=== PATIENT | female | born 1965 | race Caucasian/White ===

== ENCOUNTER 2019-11-03 21:23 | Observation (INO) ==
--- NOTE | 2019-11-03 21:33 | Emergency Department Note ---
ED Disposition Clinical Impression: Acute asthma, Peripheral edema Respiratory failure with hypoxia Qualifiers: Chronicity: acute Qualified Code(s): J96.01 - Acute respiratory failure with hypoxia Community acquired pneumonia Qualifiers: Laterality: right Lung location: middle lobe of lung Qualified Code(s): J18.9 - Pneumonia, unspecified organism Disposition: Admitted As Inpatient Condition on Discharge: Fair Referrals: Jez Hernandez [Primary Care Provider] - - Critical Care Critical Care Time: Yes Attestation: On , the high probability of a clinically significant, sudden or life threatening deterioration of the following system(s) required my full and direct attention, intervention and personal management. The time I documented below is in addition to time spent performing reported procedures but includes the fol lowing listed in this critical care notation. Vital system(s) involved:: Respiratory Failure My critical care processes included: Assessment & monitoring of V/S, Initial and Re-exams, Data Review/Interpretation, Coordinating Care, Medication Orders and management, Documentation Medical Decision Making - Jhonny Inquiry Pt receiving controlled substance: No Vital Signs: 11/03/19 21:31 11/03/19 22:11 Temperature 98.1 F Temperature Source Oral Pulse Rate [Right] 116 H 99 H Respiratory Rate 26 H 22 Blood Pressure [Right Arm] 146/95 H 131/86 Blood Pressure Mean [Right Arm] 112 101 Blood Pressure Source [Right Arm] Automatic Cuff Automatic Cuff Blood Pressure Position [Right Arm] Sitting Sitting 02 Sat by Pulse Oximetry 86 L 97 Oxygen Delivery Method Room Air Nasal Cannula Oxygen Flow Rate (LPM) 2 - Lab Data Lab Results 11/03/19 21:40: D-Dimer 234 11/03/19 21:40: Troponin I < 0.02 11/03/19 21:40: B-Natriuretic Peptide 23 11/03/19 21:40: Sodium 143, Potassium 4.2, Chloride 105, Carbon Dioxide 24, Anion Gap 18.2 H, BUN 20 H, Creatinine 0.98, Estimated Creat Clear 80, Estimated GFR 59, Est GFR ( Amer) 72, Glucose 139 H, Calcium 9.6 11/03/19 21:40: WBC 16.0 H, RBC 5.15, Hgb 15.4, Hct 48.3 H, MCV 93.8, MCH 30.0, MCHC 32.0, RDW 12.7, Plt Count 450 H, MPV 7.0 L, Neut % (Auto) 74.7, Lymph % (Auto) 16.9, [place] % (Auto) 4.0, Eos % (Auto) 3.7, Baso % (Auto) 0.6, Neut # (Auto) 12.0 H, Lymph # (Auto) 2.7, [place] # (Auto) 0.7, Eos # (Auto) 0.6 H, Baso # (Auto) 0.1, Total Counted 100, Neutrophils % (Manual) 75, Band Neutrophils % 4.0, Lymphocytes % (Manual) 18, Monocytes % (Manual) 2, Eosinophils % (Manual) 1, Platelet Estimate Normal, RBC Morphology Normal 11/03/19 21:40: Lactate 1.0 Result diagrams: 11/03/19 21:40 11/03/19 21:40 Orders (Tests/Meds): ED MEDICATIONS Generic Name Dose Route Start Last Admin Trade Name Freq PRN Reason Stop Dose Admin Ceftriaxone Sodium 1 gm/ 50 mls @ 100 mls/hr 11/03/19 23:00 11/03/19 22:55 Sodium Chloride IV 11/17/19 22:59 100 mls/hr Q24H DESIRAE Administration Protocol Azithromycin 500 mg/ Sodium 250 mls @ 250 mls/hr 11/03/19 23:00 Chloride IV 11/17/19 22:59 Q24H DESIRAE Protocol Discontinued Medications Generic Name Dose Route Start Last Admin Trade Name Freq PRN Reason Stop Dose Admin Albuterol/Ipratropium 3 ml 11/03/19 21:48 11/03/19 21:54 Duoneb 3ml Neb IH 11/03/19 21:49 3 ml ONCE ONE Administration Furosemide 20 mg 11/03/19 22:43 11/03/19 22:47 Lasix 40mg/4ml Vial IV 11/03/19 22:44 20 mg ONCE ONE Administration Levofloxacin/Dextrose 750 mg in 150 mls @ 100 mls/hr 11/03/19 22:45 11/03/19 22:50 Levofloxacin 750mg/150ml Premix IV 11/17/19 22:44 Not Given Q24H DESIRAE Protocol Methylprednisolone Sodium Succinate 125 mg 11/03/19 21:48 11/03/19 21:53 Solu-Medrol 125mg/2ml Vial IV 11/03/19 21:49 125 mg ONCE ONE Administration ORDERS Category Date Time Status Chest XR 2 view (NOT portable) [XR chest 2V] Stat Exams 11/03/19 21:47 Taken Thyroid Panel Stat Lab 11/03/19 21:40 Received Troponin I Q3H Lab 11/04/19 01:00 Ordered Troponin I Q3H Lab 11/04/19 04:00 Ordered Blood Culture Stat Micro 11/03/19 21:40 Received - Radiology Data #1 Image(s): Chest Image Reviewed: Yes I reviewed the patient's radiology image No prior x-rays for comparison. Blunting right costophrenic angle. Atelectasis versus minimal infiltrate right cardiophrenic angle. - ECG Data Tracing #1 EKG interpreted by Mahin Alonzo MD: Rhythm: sinus Rate: 83 [place]: normal Ectopy: none Conduction: normal ST Segment Changes: none T Wave Changes: none Q Waves: none No evidence of acute ischemia or injury Baseline wander present, but I consider the EKG adequate for accurate interpretation. Normal electrocardiogram - Physician Consults Physician Consulted: Dr. Couch Time: 23:05 Reason -: Admission Comment/Response: Agrees to admit the patient to the hospital. We discussed the patient's clinical information, including history, exam, laboratory and radio logy results and ED course. Per hospital procedure, I will write temporary bridge inpatient orders on the patient. Specific orders requested by the admitting physician: Continue current treatment Medical Decision Narrative: Discussed treatment and disposition. I had ordered Levaquin for possible pneumonia. She says Levaquin does not work for her. Discussed Rocephin and Zithromax. She has listed an allergy to clarithromycin, tells me that it causes her liver to hurt, but no other symptoms. She has had a azithromycin in the past without difficulty. She is agreeable to Rocephin and Zithromax. She has requested a penicillin shot, I advised her that was not the appropriate treatment for pneumonia. She is agreeable to admission. General Adult HPI - General Stated complaint: SOA Time Seen by Provider: 11/03/19 21:33 - History of Present Illness HPI narrative: Complains of shortness of breath for 1 month. States that a week ago she started developing a cough which is nonproductive. Also began holding fluid, has swelling in her legs. Denies fever, sputum production. States that she has previously been misdiagnosed years ago as COPD. She says that she saw a window trimmer who told her that she only has mild COPD and most of her problems were asthma, but she says she does not think she has either one. She is a forme r smoker. She has a nebulizer at home, but does not use it often. She says because of her current symptoms she had to get some new tubing and begin using her nebulizer a week ago. She has a pulse oximeter at home and says that her pulse oximetry goes down to 70s when she walks across the room. She says she went to [place] urgent care the night before last and had a chest x-ray to make sure she did not have pneumonia. She says, however, that "they did an x-ray and then sent me on my merry way and did not even put me on a water pill for my fluid retention". She was not prescribed any medicines. She says her primary care doctor is Dr. Lowe that she last saw about a month ago, but she says she found out at that time that they were not taking her medical card and she is having to get that switched. States she just recently moved to this area in July 2019. - Related Data Home Medications Medication Instructions Recorded Confirmed ALPRAZolam [Xanax Xr 0.5mg Tab] 0.5 mg PO HS 11/03/19 11/03/19 Albuterol Sulfate [Albuterol HFA 1 - 2 puffs IH Q4-6H PRN 11/03/19 11/03/19 Inhaler] Amlodipine Besylate 10 mg PO DAILY 11/03/19 11/03/19 Montelukast Sodium 10 mg PO DAILY 11/03/19 11/03/19 cloNIDine HCL [cloNIDine 0.1mg 0.1 mg PO BID 11/03/19 11/03/19 Tablet] Allergies Allergy/AdvReac Type Severity Reaction Status Date / Time codeine Allergy Verified 11/03/19 21:42 clarithromycin AdvReac Verified 11/03/19 21:43 From Ketorolac Tromethamine Allergy Intermediate I-HIVES Uncoded 09/12/17 15:23 [facility] History - Hepatitis A Screen Attestation statement:: This patient has been screened for Hepatitis A risk factors. I have reviewed the patient's past medical history: Yes ROS Obtained: Yes All systems reviewed & no additional complaints - Constitutional Constitutional: Denies fever(s) - ENT Ears, Nose, Mouth, and Throat: Denies nasal discharge, Denies sore throat - Cardiovascular Cardiovascular: Denies chest pain - Respiratory Respiratory: Yes cough, Yes dyspnea - Gastrointestinal Gastrointestingal: Denies: abdominal pain Physical Exam - General General appearance: alert, in no apparent distress - Head Head exam: atraumatic, normocephalic - Eye Eye exam: Present: normal appearance, EOMI - ENT ENT exam: Present: mucous membranes moist - Neck Neck exam: Present: normal inspection, full ROM - Chest Chest inspection: Present: normal inspection, symmetric chest wall rise - Respiratory Respiratory exam: Present: wheezes - Cardiovascular Cardiovascular exam: Present: regular rate, normal rhythm, normal heart sounds - Abdominal Exam Abdominal exam: Present: soft, normal bowel sounds. Absent: distention, tenderness, guarding - Extremities Exam Extremities exam: Present: other (1+ pitting edema of ankles) - Neurological Exam Neurological exam: Present: alert, oriented X3 - Psychiatric Psychiatric exam: Present: normal affect, normal mood - Skin Skin exam: Present: warm, dry. Absent: cyanosis, diaphoresis
[2019-11-03 22:30] LABS: Basophils # 0.1 K/mm3 (0-0.2); Basophils % 0.6 % (0.1-2.0); Eosinophils # 0.6 K/mm3 (0.0-0.4); Eosinophils % 3.7 % (0.1-12.0); Hematocrit 48.3 % (37.0-47.0); Hemoglobin 15.4 g/dL (12.2-16.2); Lymphocytes # 2.7 K/mm3 (0.7-4.5); Lymphocytes % 16.9 % (10-50); Mean Corpuscular Volume 93.8 fl (81-99); Monocytes # 0.7 K/mm3 (0.1-1.0); Neutrophils % 74.7 % (37.0-80.0); Platelet Count 450 K/mm3 (142-424); Red Blood Count 5.15 M/mm3 (4.20-5.40); Red Cell Distribution Width 12.7 % (11.5-17.5)
[2019-11-03 22:31] LABS: Anion Gap 18.2 mEq/L (5-15); Calcium 9.6 mg/dL (8.5-10.1)
[2019-11-03 22:50] LABS: Eosinophils % 1 % (0-3); Lymphocytes % 18 % (10-50); Monocytes % 2 % (2-9); Neutrophils % 75 % (42-76); Total Cells Counted 100
[2019-11-03 22:51] LABS: RBC Morphology Normal
[2019-11-03 23:07] LABS: Free Thyroxine Index 3.7 ug/dL (5.93-13.13); Thyroid Stimulating Hormone 1.57 uIU/ml (0.358-3.740)
--- NOTE | 2019-11-04 08:49 | H&P/Discharge Summary ---
General - General Admission date:: 11/03/19 Discharge date: 11/04/19 *Admission Date: 11/03/19 *Chief complaint: Cough/shortness of air/hypoxia *History of present illness: 54-year-old white female, who has been afflicted with asthma for several years, who has a home nebulizer machine and has been on albuterol nebulizers for several years as well as home inhalers, who over the past week or so has noticed increasing shortness of air, coughing and on her home pulse oximeter has noticed that her readings have been in the 70s when she walks about her house. She reports that she has been increasingly afflicted with coughing and congestion. Came to the emergency department here and was admitted because of pulmonary infiltrate, asthma exacerbation with failed outpatient therapy. On examination this morning to the floor she was vastly improved, tolerating room air well with normal saturations and eating her breakfast vigorously. [facility] History I have reviewed the patient's past medical history: Yes Medical History: Reports:: Asthma, Hypertension Denies:: Cancer, Diabetes Mellitus Type 1, Diabetes Mellitus Type 2, Home Oxygen, Internal Pacemaker, MRSA *Have you ever received a pneumonia vaccine?: No *Have you received a flu vaccine this season?: No Other Medical History: Reports: Cataracts, Fibromyalgia, Glaucoma Laterality Cases: Right: Arthroscopy Shoulder Other Surgeries: Yes: Tubal Ligation, Other (trigger finger release, tonsils/adenoids). No: Pacemaker Amputation: No - *Social History Educational Level: Completed College Smoking Status: Former smoker Tobacco Type: cigarettes Alcohol Intake: current Alcohol Intake Frequency:: 0-2 drinks per day Substance Use Type: marijuana Last Used Substance: hours (ago) *Occupational Status:: disabled Household Members: children *Travel in the last 8 weeks: Inside the [facility] Family Hx:: No significant family history Review of Systems - Review of Systems Review of systems:: pertinent systems reviewed and negative unless documented below Patient reports cough and congestion that is improving. She reports lots of fatigue. Otherwise 10 point review of systems negative. Patient reports that she would rather not go home today because "my son who is my caregiver needs a break." Exam Vital signs and Labs for Last 24 Hours: Temp Pulse Resp BP Pulse Ox 97.8 F 75 18 159/70 H 92 L 11/04/19 04:00 11/04/19 05:44 11/04/19 04:00 11/04/19 04:00 11/04/19 05:44 Laboratory Results - last 24 hr 11/03/19 21:40: D-Dimer 234 11/03/19 21:40: Troponin I < 0.02 11/03/19 21:40: B-Natriuretic Peptide 23 11/03/19 21:40: Sodium 143, Potassium 4.2, Chloride 105, Carbon Dioxide 24, Anion Gap 18.2 H, BUN 20 H, Creatinine 0.98, Estimated Creat Clear 80, Estimated GFR 59, Est GFR ( Amer) 72, Glucose 139 H, Calcium 9.6 11/03/19 21:40: WBC 16.0 H, RBC 5.15, Hgb 15.4, Hct 48.3 H, MCV 93.8, MCH 30.0, MCHC 32.0, RDW 12.7, Plt Count 450 H, MPV 7.0 L, Neut % (Auto) 74.7, Lymph % (Auto) 16.9, [place] % (Auto) 4.0, Eos % (Auto) 3.7, Baso % (Auto) 0.6, Neut # (Auto) 12.0 H, Lymph # (Auto) 2.7, [place] # (Auto) 0.7, Eos # (Auto) 0.6 H, Baso # (Auto) 0.1, Total Counted 100, Neutrophils % (Manual) 75, Band Neutrophils % 4.0, Lymphocytes % (Manual) 18, Monocytes % (Manual) 2, Eosinophils % (Manual) 1, Platelet Estimate Normal, RBC Morphology Normal 11/03/19 21:40: Lactate 1.0 11/03/19 21:40: TSH 1.57, Free T4 Index 3.7 L, Thyroxine (T4) 12.0, T3 Uptake 31 I & O for Last 24 hours: Intake & Output 11/01/19 11/02/19 11/03/19 11/04/19 11:59 11:59 11:59 11:59 Intake Total 300 / 300 Balance 300 / 300 Weight 166 lb 5 oz Narrative: Patient is alert. Oriented x3. Obesity noted. Complicates all aspects of her care. Oropharynx clear, no JVD. Lungs have good air movement. No wheezing. No rhonchi. Abdomen soft and nontender. No edema or clubbing. No skin rash. Neurologically intact. Hospital Course Hospital Course: Patient was admitted. She did very nicely on transfer the floor. Oxygen needs resolved. Plan will be to discharge patient home with antibiotics, steroids and refills of her solution for her nebulizer machine. She has been seeing Dr. Hernandez in the past, but has not recently because of insurance issues. We will make her a preemptive appointment at the [facility] outpatient clinic for later in the week to establish care. Results Labs on day of discharge: Labs from last 24 hours 11/03/19 11/03/19 11/03/19 21:40 21:40 21:40 WBC 16.0 H RBC 5.15 Hgb 15.4 Hct 48.3 H MCV 93.8 MCH 30.0 MCHC 32.0 RDW 12.7 Plt Count 450 H MPV 7.0 L Neut % (Auto) 74.7 Lymph % (Auto) 16.9 [place] % (Auto) 4.0 Eos % (Auto) 3.7 Baso % (Auto) 0.6 Neut # (Auto) 12.0 H Lymph # (Auto) 2.7 [place] # (Auto) 0.7 Eos # (Auto) 0.6 H Baso # (Auto) 0.1 Total Counted 100 Neutrophils % (Manual) 75 Band Neutrophils % 4.0 Lymphocytes % (Manual) 18 Monocytes % (Manual) 2 Eosinophils % (Manual) 1 Platelet Estimate Normal RBC Morphology Normal D-Dimer Sodium Potassium Chloride Carbon Dioxide Anion Gap BUN Creatinine Estimated Creat Clear Estimated GFR Est GFR ( Amer) Glucose Lactate 1.0 Calcium Troponin I B-Natriuretic Peptide TSH 1.57 Free T4 Index 3.7 L Thyroxine (T4) 12.0 T3 Uptake 31 11/03/19 11/03/19 11/03/19 21:40 21:40 21:40 WBC RBC Hgb Hct MCV MCH MCHC RDW Plt Count MPV Neut % (Auto) Lymph % (Auto) [place] % (Auto) Eos % (Auto) Baso % (Auto) Neut # (Auto) Lymph # (Auto) [place] # (Auto) Eos # (Auto) Baso # (Auto) Total Counted Neutrophils % (Manual) Band Neutrophils % Lymphocytes % (Manual) Monocytes % (Manual) Eosinophils % (Manual) Platelet Estimate RBC Morphology D-Dimer Sodium 143 Potassium 4.2 Chloride 105 Carbon Dioxide 24 Anion Gap 18.2 H BUN 20 H Creatinine 0.98 Estimated Creat Clear 80 Estimated GFR 59 Est GFR ( Amer) 72 Glucose 139 H Lactate Calcium 9.6 Troponin I < 0.02 B-Natriuretic Peptide 23 TSH Free T4 Index Thyroxine (T4) T3 Uptake 11/03/19 21:40 WBC RBC Hgb Hct MCV MCH MCHC RDW Plt Count MPV Neut % (Auto) Lymph % (Auto) [place] % (Auto) Eos % (Auto) Baso % (Auto) Neut # (Auto) Lymph # (Auto) [place] # (Auto) Eos # (Auto) Baso # (Auto) Total Counted Neutrophils % (Manual) Band Neutrophils % Lymphocytes % (Manual) Monocytes % (Manual) Eosinophils % (Manual) Platelet Estimate RBC Morphology D-Dimer 234 Sodium Potassium Chloride Carbon Dioxide Anion Gap BUN Creatinine Estimated Creat Clear Estimated GFR Est GFR ( Amer) Glucose Lactate Calcium Troponin I B-Natriuretic Peptide TSH Free T4 Index Thyroxine (T4) T3 Uptake DS: Diagnosis - Discharge Diagnosis (1) Acute asthma Status: Acute (2) Community acquired pneumonia Status: Acute Discharge Plan - Patient Discharge Instructions ACTIVITY: Continue current activity DIET: continue same diet Patient Instructions: Pneumonia-Adult, Asthma -- Adult, DI for Asthma -- Adult, DI for Pneumonia -- Adult, DI for Peripheral Edema -- Bilateral, DI for Hypoxia - Follow up Plan Follow up with: Rossy Kasper APRN [Advanced Practice Nurse] - 11/07/19 3:30 pm (please arrive to appointment at 3:00 for papeerwork) Disposition: Home, Self-Half-Way Medications: Home Medications Medication Instructions Recorded Confirmed Type ALPRAZolam [Xanax Xr 0.5mg Tab] 0.5 mg PO HS 11/03/19 11/03/19 History Albuterol Sulfate [Albuterol HFA 1 - 2 puffs IH Q4-6H PRN 11/03/19 11/03/19 History Inhaler] Amlodipine Besylate 10 mg PO DAILY 11/03/19 11/03/19 History Montelukast Sodium 10 mg PO DAILY 11/03/19 11/03/19 History cloNIDine HCL [cloNIDine 0.1mg 0.1 mg PO BID 11/03/19 11/03/19 History Tablet] Azithromycin [Zithromax 250mg 250 mg PO DIRECTED #6 tab 11/04/19 Rx tab] Cefdinir [Omnicef 300mg Capsule] 300 mg PO BID #14 cap 11/04/19 Rx Ipratropium/Albuterol Sulfate 3 ml IH TID #90 neb 11/04/19 Rx [Duoneb 3mL neb] predniSONE [Deltasone 20mg 20 mg PO BID 7 Days #14 tab 11/04/19 Rx tablet] Prescriptions/Medication Reconciliation: New predniSONE [Deltasone 20mg tablet] 20 mg PO BID 7 Days #14 tab Ipratropium/Albuterol Sulfate [Duoneb 3mL neb] 3 ml IH TID #90 neb Cefdinir [Omnicef 300mg Capsule] 300 mg PO BID #14 cap Azithromycin [Zithromax 250mg tab] 250 mg PO DIRECTED #6 tab Continued Albuterol Sulfate [Albuterol HFA Inhaler] 1 - 2 puffs IH Q4-6H PRN PRN Reason: Shortness Of Breath Or Wheezing cloNIDine HCL [cloNIDine 0.1mg Tablet] 0.1 mg PO BID Montelukast Sodium 10 mg PO DAILY ALPRAZolam [Xanax Xr 0.5mg Tab] 0.5 mg PO HS Amlodipine Besylate 10 mg PO DAILY - Problem Reconciliation Problems Reviewed?: Yes
--- NOTE | 2019-11-05 20:07 | Electrocardiograph Report ---
APPROVED REPORT Exam: Resting ECG HR:83 bpm ECG Measurements Heart Rate [address] 122 P 53 QRSd 84 QRS 84 QT 334 T89 QTc 392 <Conclusion> Normal sinus rhythm Normal ECG Electronically signed by : Lj Couch, 11/05/2019 20:07:21
== END 2019-11-04 18:50 | disposition home or self-care (01) ==
LOC: ER 21:23 → 2ND 21:23
PROVIDERS: ADMIT Internal Medicine Adolescent Medicine; ATTEND Internal Medicine Adolescent Medicine
DX: I10 Essential (primary) hypertension; J45.909 Unspecified asthma, uncomplicated; Z87.891 Personal history of nicotine dependence; Z79.899 Other long term (current) drug therapy; J18.9 Pneumonia, unspecified organism; F10.10 Alcohol abuse, uncomplicated
CPT/HCPCS: 71020; 71046; 80048; 83605; 83880; 84436; 84443; 84479; 84484; 85007; 85025; 85378; 87040; 87070; 87205; 93005; 94640; 94760; 94761; 96365; 96367; 96375; 99285; G0378; J0456

== ENCOUNTER → 2020-08-25 15:45 | Outpatient (CLI) | payer OTHER, SELFPAY ==
--- NOTE | 2020-08-25 15:51 | XR_ITS ---
PROCEDURE: XR CHEST 2V CLINICAL HISTORY: chest pain right upper and lateral chest pain, remote fall, abnormal breath sounds COMPARISON: CR XR CHEST 2V from 11/03/2019 CR XR RIBS RT 2V from 08/25/2020 FINDINGS: The cardiomediastinal silhouette and pulmonary vascularity are within normal limits. There are atelectatic changes in the right upper lobe right lower lobe and left midlung with patchy areas of increased density in these regions which may also be due to superimposed infiltrate. There is no evidence of pneumothorax. There is a 6 mm noncalcified nodule in the left upper lobe. Three views of the right ribs show a minimally offset fracture of the right 6 rib with a nondisplaced fracture of the right 7th rib anterior laterally. IMPRESSION: 1. Right 6th and 7th rib fractures. 2. Bilateral areas of atelectasis and/or infiltrate. 3. 6 mm noncalcified nodule left upper lobe. Consider chest CT for more thorough evaluation. This nodule is indeterminate Dictated by: Tino Bean MD 08/25/2020 16:59 Tino Bean MD in [place] 08/25/2020 16:59
== END ==
PROVIDERS: PCP Family Medicine; Visit Provider Family Medicine
DX: R07.81 Pleurodynia (principal)
CPT/HCPCS: 71046; 71100

== ENCOUNTER → 2021-04-05 11:10 | Outpatient (CLI) | payer OTHER, SELFPAY ==
--- NOTE | 2021-04-05 11:10 | FL_ITS ---
PROCEDURE: FL BARIUM SWALLOW MODIFIED CLINICAL INDICATION: sensation of something stuck in throat COMPARISON: No exams were available for comparison TECHNIQUE: Patient administered varying consistencies of barium contrast, while viewed in lateral position under real-time fluoroscopy with cine recording. FLUOROSCOPY TIME:1 minutes and 8 seconds The study was performed in conjunction with speech pathologist. Please see that report & recommendations. FINDINGS: Patient was given varying consistencies of barium. No aspiration or penetration. There was some difficulty with bolus formation with mechanical soft due to lack of dentition. Pill was swallowed without difficulty. IMPRESSION: Unremarkable modified barium swallow. Please see speech pathologist report and recommendations. Dictated by: Tino Bean MD 04/05/2021 15:59 Tino Bean MD in [place] 04/05/2021 15:59
--- NOTE | 2021-04-05 12:48 | HMH.SLMBS2 ---
Speech & Language Evaluation Speech/Language Mod Barium Swallow Start: 04/05/21 12:41 Freq: once Status: Complete Protocol: Document 04/05/21 12:41 CHEMA (Rec: 04/05/21 12:48 CHEMA [id number]) General Information General Current Food Consistancy Mechanical Soft,Thin Liquids Dentition Edentulous Oxygen Status Room Air Facial Symmetry Symmetrical Patient Orientation Person,Place,Time,Situation Ability to Follow Directions Excellent Communication Ability No Impairment Voice Voice Quality Harsh,Hoarse Voice Pitch Moderately Low Voice Loudness Normal [facility] Recommendations Diet Dietary Recommendations Mechanical Soft,Thin Liquids Referrals/Other Recommended Referrals GI Consult,ENT Consult Mod Barium Swallow Impressions Summary and Impressions Oral Phase Impression No Impairment (WFL) Oral Phase Summary Ms. Simmons was given the following consistencies: thins via straw and open cup, pudding, mechancial soft, and pill with thin wash. No oral phase impairments noted. Did not attempt regular due to lack of dentition. Pharyngeal Phase Impression No Impairment (WFL) Pharyngeal Phase Summary No pharyngeal phase impairments noted. Speech/Language [facility] Assessment/Goals/Plan Assessment Date of Evaluation: 04/05/21 Evaluation Type Initial Certification Assessment/Problems Dysphagia Does Patient Qualify for Service No Qualify/Failure Comment No overt s/s of dysphagia noted. Plan Pt/Guardian verbally ack understanding Yes of dx/prognosis/goals G -code Required No Mod Barium Swallow Setup Exam Setup Radiologist Tino Bean Level of Consciousness Awake,Alert,Appropriate, Follows Commands Position (degrees) 90 Mod Barium Swallow-Lat View Textures Lateral View Food Presentation Thin Liquid via Cup,Thin Liquid via Straw,Ground Food- Regular,Barium Tablet,Pudding Oral Phase Labial Closure No Impairment (WFL) Bolus Formation Pooling L/R No Impairment (WFL) Bolus Formation under Tongue No Impairment (WFL) Bolus Formation Scattered Loss No Impairment (WFL) Mastication Rotary Chew No Impairment (WFL) Mastication Munching No Impairment (WFL) Mastication Lateralization No Impairment (WFL) A/P Lingual Propulsion Spills No Impairment (WFL) Re
== END ==
PROVIDERS: PCP Family Medicine; Visit Provider Family Medicine
DX: R13.10 Dysphagia, unspecified (principal)
CPT/HCPCS: 70371; 92611

== ENCOUNTER 2021-06-10 15:55 | Inpatient (IN) | payer OTHER, SELFPAY ==
[2021-06-10 15:56] VITALS: BP 152/99; PULSE 123; RESP 30; TEMP 37.4; O2SAT 85; BMI 37.1
[2021-06-10 16:22] VITALS: BP 152/99; PULSE 112; RESP 32; O2SAT 96
--- NOTE | 2021-06-10 16:26 | XR_ITS ---
PROCEDURE INFORMATION: Exam: XR Chest Exam date and time: 06/10/2021 4:26 PM Age: 55 years old Clinical indication: Cough TECHNIQUE: Imaging protocol: XR of the chest. Views: 1 view. COMPARISON: CR XR CHEST 2V 08/25/2020 4:09 PM FINDINGS: Lungs: Bibasilar opacities partially silhouette the diaphragm are favored to represent combination of atelectasis/pleural effusion/consolidation. Pleural spaces: See Lungs finding. Heart/Mediastinum: Unremarkable. No cardiomegaly. Bones/joints: Right glenoid suture anchor unchanged in position. IMPRESSION: Bibasilar opacities partially silhouette the diaphragm are favored to represent combination of atelectasis/pleural effusion/consolidation.
[2021-06-10 16:47] LABS: Basophils # 0.1 K/mm3 (0-0.2); Basophils % 0.6 % (0.1-2.0); Eosinophils # 0.1 K/mm3 (0.0-0.4); Eosinophils % 1.3 % (0.1-12.0); Hematocrit 42.9 % (37.0-47.0); Hemoglobin 13.6 g/dL (12.2-16.2); Lymphocytes # 1.5 K/mm3 (0.7-4.5); Mean Corpuscular HGB Conc 31.7 g/dL (31.8-35.4); Mean Corpuscular Hemoglobin 27.7 pg (27.0-31.2); Mean Corpuscular Volume 87.4 fl (81-99); Mean Platelet Volume 7.3 fl (7.4-10.4); Monocytes # 0.6 K/mm3 (0.1-1.0); Monocytes % 5.6 % (1.7-9.3); Neutrophils # 8.8 K/mm3 (1.8-7.8); Neutrophils % 79.4 % (37.0-80.0); Platelet Count 353 K/mm3 (142-424); Red Cell Distribution Width 15.9 % (11.5-17.5); White Blood Count 11.1 K/mm3 (4.8-10.8)
[2021-06-10 16:57] LABS: Alanine Aminotransferase 25 U/L (12-78); Albumin Level 3.5 g/dl (3.5-5.0); Albumin/Globulin Ratio 0.9 (1.1-1.8); Alkaline Phosphatase 131 U/L (38-126); Anion Gap 12.7 mEq/L (5-15); Aspartate Amino Transferase 27 U/L (14-36); Bilirubin,Total 1.2 mg/dl (0.2-1.3); Blood Urea Nitrogen 10 mg/dl (7-17); Calcium 8.7 mg/dl (8.4-10.2); Carbon Dioxide 28 mmol/L (22.0-30.0); Chloride 104 mmol/L (98-107); Creatinine Clearance Estimated 105 mL/min (50-200); Estimated Glomerular Filt Rate 74 ml/min (>60); GFR (African American) 90 ML/MIN (>60); Globulin 3.7 g/dL (1.3-3.2); Glucose 149 mg/dl (74-100); Potassium 4.7 mmoL/L (3.5-5.1); Sodium 140 mmol/L (136-145); Total Protein,Serum 7.2 g/dl (6.3-8.2)
[2021-06-10 17:00] VITALS: BP 160/100; PULSE 110; RESP 32; O2SAT 96
[2021-06-10 17:08] LABS: Activated Partial Thrombo Time 36.9 seconds (22.8-30.6)
[2021-06-10 17:09] LABS: INR 0.93 (0.9-1.1); NT Pro Brain Natriuretic Pep. 4510 pg/mL (0-125); Troponin I 0.05 ng/ml (0.00-0.034)
--- NOTE | 2021-06-10 17:30 | PC.NURSE ---
PT UP TO BATHROOM PT BECOMES VERY SOB WITH LITTLE EXERTION. PT ASSISTED BACK TO BED WITH ASSIST
[2021-06-10 18:00] VITALS: BP 144/92; PULSE 100; RESP 22; O2SAT 96
[2021-06-10 18:15] LABS: Influenza A, PCR Not Detected (NotDetected); Influenza B, PCR Not Detected (NotDetected)
[2021-06-10 18:38] LABS: Coronavirus 19, PCR Detected (NotDetected)
--- NOTE | 2021-06-10 18:42 | HMH.EDGENADL ---
ED Disposition Clinical Impression: Acute exacerbation of chronic obstructive airways disease, Bronchitis, COVID-19 Community acquired pneumonia Qualifiers: Laterality: right Lung location: lower lobe of lung Qualified Code(s): J18.9 - Pneumonia, unspecified organism Respiratory failure with hypoxia Qualifiers: Chronicity: acute on chronic Qualified Code(s): J96.21 - Acute and chronic respiratory failure with hypoxia Disposition: Admitted As Inpatient Condition on Discharge: Fair Referrals: Vargas Hernandez MD [Primary Care Provider] - - Critical Care Critical Care Time: No Attestation: On 06/10/21, the high probability of a clinically significant, sudden or life threatening deterioration of the following system(s) required my full and direct attention, intervention and personal management. The time I documented below is in addition to time spent performing reported procedures but includes the following listed in this critical care notation. Medical Decision Making - Medical Records Medical records reviewed: Yes: I reviewed the patient's medical records. - Jhonny Inquiry Pt receiving controlled substance: No Vital Signs: 06/10/21 15:56 Temperature 99.3 F Temperature Source Oral Pulse Rate [Radial] 123 H Respiratory Rate 30 H Blood Pressure [Right Arm] 152/99 H Blood Pressure Mean [Right Arm] 116 Blood Pressure Position [Right Arm] Sitting 02 Sat by Pulse Oximetry 85 L Oxygen Delivery Method Nasal Cannula Oxygen Flow Rate (LPM) 15 - Lab Data Lab Results 06/10/21 16:16: WBC 11.1 H, RBC 4.90, Hgb 13.6, Hct 42.9, MCV 87.4, MCH 27.7, MCHC 31.7 L, RDW 15.9, Plt Count 353, MPV 7.3 L, Neut % (Auto) 79.4, Lymph % (Auto) 13.0, [place] % (Auto) 5.6, Eos % (Auto) 1.3, Baso % (Auto) 0.6, Neut # (Auto) 8.8 H, Lymph # (Auto) 1.5, [place] # (Auto) 0.6, Eos # (Auto) 0.1, Baso # (Auto) 0.1 06/10/21 16:16: PT 11.0, INR 0.93, APTT 36.9 H 06/10/21 16:16: Sodium 140, Potassium 4.7, Chloride 104, Carbon Dioxide 28, Anion Gap 12.7, BUN 10, Creatinine 0.80, Estimated Creat Clear 105, Estimated GFR 74, Est GFR ( Amer) 90, Glucose 149 H, Calcium 8.7, Total Bilirubin 1.2, AST 27, ALT 25, Alkaline Phosphatase 131 H, Troponin I 0.05 H, NT-Pro-B Natriuret Pep 4510 H, Total Protein 7.2, Albumin 3.5, Globulin 3.7 H, Albumin/Globulin Ratio 0.9 L 06/10/21 16:16: Lactate 1.0 06/10/21 18:07: SARS-CoV-2 (PCR) Detected A, Influenza A Untype (PCR) Not detected, Influenza Type B (PCR) Not detected Result diagrams: 06/10/21 16:16 06/10/21 16:16 Orders (Tests/Meds): ED MEDICATIONS Discontinued Medications Generic Name Dose Route Start Last Admin Trade Name Freq PRN Reason Stop Dose Admin Dexamethasone Sodium Phosphate 10 mg 06/10/21 19:05 Dexamethasone 4mg/Ml 5ml Mdv IV 06/10/21 19:06 ONCE ONE Iopamidol 70 ml 06/10/21 19:03 06/10/21 19:05 Iopamidol-370 (76%);100ml Bottle IV 06/10/21 19:04 70 ml ONCE ONE Administration Sodium Chloride 40 ml 06/10/21 19:03 06/10/21 19:06 0.9% Sodium Chloride 20ml Vial IV 06/10/21 19:04 40 ml ONCE ONE Administration Sodium Chloride 10 ml 06/10/21 19:03 06/10/21 19:06 Sodium Chloride 0.9% 10ml Syr (Rad Only) IV 06/10/21 19:04 10 ml ONCE ONE Administration ORDERS Category Date Time Status CTA Chest [CT angio chest PE protocol] Stat Cat Scan 06/10/21 18:46 Taken Troponin I Q3H Lab 06/10/21 19:30 Ordered Troponin I Q3H Lab 06/10/21 22:30 Ordered Urinalysis and Microscopic Stat Lab 06/10/21 16:26 Ordered Blood Culture Stat Micro 06/10/21 16:16 Received ABG [Arterial Blood Gas] Stat RT 06/10/21 16:26 Ordered - Radiology Data #1 Image(s): Chest Image Reviewed: Yes I reviewed the patient's radiology results, Yes I reviewed the patient's radiology image, Yes I have reviewed radiologist's interpretation IMPRESSION: Bibasilar opacities partially silhouette the diaphragm are favored to represent combination of atelectasis/pleural
--- NOTE | 2021-06-10 18:46 | CT_ITS ---
PROCEDURE INFORMATION: Exam: CTA Chest With Contrast Exam date and time: 06/10/2021 6:46 PM Age: 55 years old Clinical indication: Shortness of breath; Additional info: SOB TECHNIQUE: Imaging protocol: Computed tomographic angiography of the chest with contrast. 3D rendering (Not supervised by radiologist): MIP and/or 3D reconstructed images were created by the technologist. Radiation optimization: All CT scans at this facility use at least one of these dose optimization techniques: automated exposure control; mA and/or kV adjustment per patient size (includes targeted exams where dose is matched to clinical indication); or iterative reconstruction. Contrast material: ISOVUE 370; Contrast volume: 70 ml; Contrast route: INTRAVENOUS (IV); COMPARISON: CR XR CHEST PORTABLE 06/10/2021 4:49 PM FINDINGS: Pulmonary arteries: Normal. No pulmonary emboli. Aorta: Unremarkable. No aortic aneurysm. No aortic dissection. Lungs: Moderate posterior subpleural reticular opacities with honeycombing at the lung bases, anterior middle lobe and lingula suggest interstitial lung disease such as NSIP. Bibasilar subsegmental atelectasis present. Moderate centrilobular emphysematous changes. Pleural spaces: Unremarkable. No pneumothorax. No pleural effusion. Heart: Unremarkable. No cardiomegaly. No pericardial effusion. Lymph nodes: Nonspecific mediastinal and perihilar nodes could represent granulomatous process such as sarcoid, however infectious or neoplastic process cannot be excluded. Bones/joints: Multiple right-sided healing rib fractures are present. Soft tissues: Unremarkable. IMPRESSION: 1. Moderate posterior subpleural reticular opacities with honeycombing at the lung bases, anterior middle lobe and lingula suggest interstitial lung disease such as NSIP. 2. Nonspecific mediastinal and perihilar nodes could represent granulomatous process such as sarcoid, however infectious or neoplastic process cannot be excluded. 3. No CT angiography evidence of PE.
--- NOTE | 2021-06-10 19:05 | PC.NURSE ---
Paging at this time
--- NOTE | 2021-06-10 19:39 | PC.NURSE ---
Dr. Chapman s/w Dr. Reynoso for admission. stitching department supervisor notified. Charge nurse notified and bed assignment received, 212.
[2021-06-10 19:40] VITALS: BP 135/96; PULSE 98; RESP 28; O2SAT 96
[2021-06-10 19:45] VITALS: BMI 37.0
[2021-06-10 20:43] VITALS: BP 131/84; PULSE 99; RESP 21; TEMP 37; O2SAT 95
[2021-06-10 20:58] LABS: Troponin I 0.04 ng/ml (0.00-0.034)
--- NOTE | 2021-06-10 21:06 | PC.NURSE ---
patient up to floor via stretcher.
[2021-06-10 22:58] LABS: Troponin I 0.03 ng/ml (0.00-0.034)
[2021-06-11] VITALS (8 sets, daily range): BP systolic 156–165; BP diastolic 72–102; PULSE 60–100; RESP 18–24; TEMP 36.6–36.8; O2SAT 90–95; BMI 37.0; BMI 36.8
[2021-06-11 05:20] LABS: Microscopic, Urine URINE MICROSCOPIC (MICROSCOPIC)
[2021-06-11 05:21] LABS: Appearance,Urine CLEAR (Clear); Bilirubin,Urine Negative (Negative); Blood, Urine Negative (Negative); Glucose,Urine (UA) 1+ (Negative); Ketones,Urine Negative (Negative); Leukocyte Esterase,Urine Negative (Negative); Nitrate,Urine Negative (Negative); PH,Urine 5.5 (5.0-8.5); Protein,Urine Negative (Negative); Specific Gravity, Urine 1.025 (1.005-1.030)
[2021-06-11 05:28] LABS: Color,Urine Dark Yellow (Yellow)
[2021-06-11 05:36] LABS: Bacteria,Urine 1+ /lpf; Mucus,Urine 1+ /lpf; Squamous Epithelial Cell,Urine Occasional #/hpf (0-5)
[2021-06-11 06:23] LABS: Basophils % 0.3 % (0.1-2.0); Eosinophils % 0.1 % (0.1-12.0); Hematocrit 40.6 % (37.0-47.0); Hemoglobin 12.5 g/dL (12.2-16.2); Lymphocytes # 0.9 K/mm3 (0.7-4.5); Lymphocytes % 15.3 % (10-50); Mean Corpuscular HGB Conc 30.8 g/dL (31.8-35.4); Mean Corpuscular Hemoglobin 27.7 pg (27.0-31.2); Mean Corpuscular Volume 89.8 fl (81-99); Mean Platelet Volume 7.4 fl (7.4-10.4); Monocytes # 0.1 K/mm3 (0.1-1.0); Monocytes % 2.5 % (1.7-9.3); Neutrophils # 4.5 K/mm3 (1.8-7.8); Neutrophils % 81.9 % (37.0-80.0); Platelet Count 310 K/mm3 (142-424); Red Blood Count 4.52 M/mm3 (4.20-5.40); Red Cell Distribution Width 15.7 % (11.5-17.5); White Blood Count 5.5 K/mm3 (4.8-10.8)
[2021-06-11 06:43] LABS: Alanine Aminotransferase 23 U/L (12-78); Albumin Level 3.1 g/dl (3.5-5.0); Albumin/Globulin Ratio 0.9 (1.1-1.8); Alkaline Phosphatase 103 U/L (38-126); Aspartate Amino Transferase 19 U/L (14-36); Bilirubin,Total 0.7 mg/dl (0.2-1.3); Blood Urea Nitrogen 10 mg/dl (7-17); Calcium 8.3 mg/dl (8.4-10.2); Carbon Dioxide 31 mmol/L (22.0-30.0); Chloride 103 mmol/L (98-107); Creatinine Clearance Estimated 120 mL/min (50-200); Estimated Glomerular Filt Rate 87 ml/min (>60); GFR (African American) 105 ML/MIN (>60); Globulin 3.4 g/dL (1.3-3.2); Glucose 268 mg/dl (74-100); Sodium 138 mmol/L (136-145); Total Protein,Serum 6.5 g/dl (6.3-8.2)
--- NOTE | 2021-06-11 07:33 | P.CONPHA_ITS ---
[facility] Pharmacy VTE Monitoring - Patient Demographics Admission date: 06/11/21 Report Date: 06/11/21 Time: 07:34 Allergies/Adverse Reactions: Patient Allergies ketorolac Allergy (Intermediate, Verified 06/03/21 11:12) Hives codeine Allergy (Verified 06/03/21 11:12) Hives clarithromycin Adverse Reaction (Verified 06/03/21 11:12) Liver Pain Height: 1.5 m Weight: 83.46 kg Patient Problems: Current Active Problems Acute exacerbation of chronic obstructive airways disease (Acute) COVID-19 (Acute) Bronchitis (Acute) Respiratory failure with hypoxia (Acute) Community acquired pneumonia (Acute) - VTE Risk Labs: VTE Related Lab Results Hgb 12.5 g/dL (12.2-16.2) 06/11/21 06:05 Hct 40.6 % (37.0-47.0) 06/11/21 06:05 Plt Count 310 K/mm3 (142-424) 06/11/21 06:05 PT 11.0 seconds (10.1-12.5) 06/10/21 16:16 INR 0.93 (0.9-1.1) 06/10/21 16:16 APTT 36.9 seconds (22.8-30.6) H 06/10/21 16:16 BUN 10 mg/dl (7-17) 06/11/21 06:05 Creatinine 0.70 mg/dl (0.52-1.04) 06/11/21 06:05 Estimated Creat Clear 120 mL/min (50-200) 06/11/21 06:05 Was VTE Risk Assessment Performed: Yes VTE Risk Level: Low Risk Clinical Trial Participant: No - Prophylaxis VTE Prophylaxis Ordered?: Yes Types of VTE Prophylaxis: TEDS Knee High, Pharmacological Pharmacologic Type: Enoxaparin
--- NOTE | 2021-06-11 07:42 | HMH.PHAINT ---
verified home medication list using list from [facility]
--- NOTE | 2021-06-11 09:18 | HMH.HP ---
*Admission Date: 06/11/21 *Chief complaint: soa,covid *History of present illness: 55-year-old female presented to the emergency department with some difficulty breathing. Patient was recently diagnosed with Covid approximately 2 weeks ago. Patient was admitted to outlying facility. pt states she was discharged with supplemental oxygen. Patient states that she has been declining over the last few weeks, states that she is having worsening difficulty breathing. She went to see her primary care physician today and she was found to be hypoxic. Pt admitted for covid pneumonia failed out pt therapy. for pulm consult,o2 and monitoring. [facility] History I have reviewed the patient's past medical history: Yes Medical History: Reports:: Anxiety, Asthma, Chronic Obstructive Pulmonary Disease (COPD), Depression, Hypertension Denies:: Cancer, Diabetes Mellitus Type 1, Diabetes Mellitus Type 2, Home Oxygen, Internal Pacemaker, MRSA *Have you ever received a pneumonia vaccine?: No *Have you received a flu vaccine this season?: No Other Medical History: Reports: Cataracts, Fibromyalgia, Glaucoma Laterality Cases: Right: Arthroscopy Shoulder, Bilateral: Tonsillectomy Other Surgeries: Yes: Tubal Ligation, Other (trigger finger release, tonsils/adenoids). No: Pacemaker Amputation: No - *Social History Last grade of school completed: Some college Smoking Status: Former smoker Tobacco Type: cigarettes Alcohol Intake: never Alcohol Intake Frequency:: 0-2 drinks per day Substance Use Type: marijuana *Occupational Status:: disabled Household Members: children *Travel in the last 8 weeks: None - Psychiatric History Pschychiatric History:: Reports:: Anxiety, Depression Family Hx:: No significant family history Review of Systems - Review of Systems Review of systems:: pertinent systems reviewed and negative unless documented below - Constitutional Reports fatigue, Denies body ache(s), Denies lack of energy - Eyes Denies blurry vision - ENT Denies bleeding gums - *Cardiovascular Reports shortness of breath, Denies chest pain at rest - *Respiratory Reports cough, Reports shortness of breath, Reports shortness of breath with activity, Reports wheezing - *Gastrointestinal Denies abdominal pain - *Genitourinary Denies urinary urgency - *Musculoskeletal Denies joint pain - Integumentary/Breasts Denies rash - *Neurologic Denies abnormal hearing, Denies headache(s) - Psychiatric Denies lack of enjoyment - Endocrine Denies excessive sweating - Hematologic/Lymphatic Denies easy bruising - Allergic/Immunologic Denies itchy eyes Meds Home Medications Medication Instructions Recorded Confirmed Type ipratropium 0.5 mg-albuterol 3 mg 3 ml INHALATION TID PRN #90 neb 02/26/21 06/10/21 Rx (2.5 mg base)/3 mL nebulization soln ergocalciferol (vitamin D2) 1,250 5,000 unit PO DAILY cap 06/03/21 06/11/21 History mcg (50,000 unit) capsule mometasone-formoterol HFA 200 2 puff INHALATION BID 06/03/21 06/10/21 History mcg-5 mcg/actuation aerosol inhaler montelukast 10 mg tablet 10 mg PO DAILY #90 tab 06/03/21 06/10/21 Rx Azelastine HCl [Azelastine Nasal 2 spray INTRANASAL BID 06/10/21 06/10/21 History [place] 30mL Bottle] Baclofen [Lioresal 10mg tablet] 10 mg PO BID 06/10/21 06/11/21 History Furosemide [Furosemide 20mg Tab*] 20 mg PO DAILY 06/10/21 06/10/21 History Pantoprazole Sodium 40 mg PO DAILY 06/10/21 06/10/21 History ALPRAZolam [Alprazolam Xr] 0.5 mg PO BID 06/11/21 06/10/21 History Albuterol Sulfate [Proventil Hfa] 1 inh INHALATION QIDP PRN 06/11/21 06/11/21 History dilTIAZem HCL [Diltiazem ER] 120 mg PO DAILY 06/11/21 06/11/21 History Allergies Allergy/AdvReac Type Severity Reaction Status Date / Time ketorolac Allergy Intermediate Hives Verified 06/03/21 11:12 codeine Allergy Hives Verified 06/03/21 11:12 clarithromycin AdvReac Liver Pain Verified 06/03/21 11:12 Exam Vital signs and Labs for Las
--- NOTE | 2021-06-11 15:25 | PC.NURSE ---
Pt has been pleasant and somewhat cooperative this shift. Pt occasionally refuses certain medications and would not wear the non-rebreather consistently this AM. Pt is A&O X4. Pt is currently receiving humidified O2 via NC @ 7 LPM with sats. >88%. Pt appears to be much more compliant with the NC and has left it in place since application. Lungs CTA. No edema noted. Skin is C/D/I. Telemetry reveals NSR. Pt ambulates independently in the room and uses the BSC. Urine is clear and yellow. No BM thus far today. Appetite is good and pt eats the majority of all meals. Pt has been instructed to provide a sputum sample and a specimen cup is at bedside. 20 G peripheral IV in the LT forearm is patent and infusing LR @ 75 ML/HR. B/P has been slightly elevated this shift. Other VSS. Call light within reach. Will continue to monitor.
[2021-06-12] VITALS (7 sets, daily range): BP systolic 142–168; BP diastolic 78–93; PULSE 80–100; RESP 14–24; TEMP 36.4–37.1; O2SAT 90–95
[2021-06-12 07:40] LABS: Basophils % 0.4 % (0.1-2.0); Eosinophils # 0.1 K/mm3 (0.0-0.4); Eosinophils % 0.7 % (0.1-12.0); Hematocrit 41.8 % (37.0-47.0); Hemoglobin 12.9 g/dL (12.2-16.2); Lymphocytes # 2.2 K/mm3 (0.7-4.5); Lymphocytes % 18.1 % (10-50); Mean Corpuscular HGB Conc 30.8 g/dL (31.8-35.4); Mean Corpuscular Hemoglobin 27.4 pg (27.0-31.2); Mean Corpuscular Volume 88.8 fl (81-99); Mean Platelet Volume 7.3 fl (7.4-10.4); Monocytes # 0.6 K/mm3 (0.1-1.0); Monocytes % 4.8 % (1.7-9.3); Neutrophils # 9.2 K/mm3 (1.8-7.8); Neutrophils % 76.1 % (37.0-80.0); Platelet Count 333 K/mm3 (142-424); Red Cell Distribution Width 15.6 % (11.5-17.5); White Blood Count 12.1 K/mm3 (4.8-10.8)
[2021-06-12 07:56] LABS: Anion Gap 10.5 mEq/L (5-15); Blood Urea Nitrogen 12 mg/dl (7-17); Calcium 8.6 mg/dl (8.4-10.2); Carbon Dioxide 34 mmol/L (22.0-30.0); Chloride 100 mmol/L (98-107); Creatinine Clearance Estimated 119 mL/min (50-200); Estimated Glomerular Filt Rate 87 ml/min (>60); GFR (African American) 105 ML/MIN (>60); Glucose 136 mg/dl (74-100); Potassium 4.5 mmoL/L (3.5-5.1); Sodium 140 mmol/L (136-145)
--- NOTE | 2021-06-12 10:44 | P.PN_ITS ---
Internal Medicine - PN: Subj *Date: 06/13/21 *Time: 00:41 Interval history: doing better overall - will adjust meds and check labs Exam Vital signs and Labs for Last 24 Hours: Temp Pulse Resp BP Pulse Ox 97.6 F 84 20 168/82 H 93 L 06/12/21 08:00 06/12/21 08:00 06/12/21 08:00 06/12/21 08:00 06/12/21 08:00 Laboratory Results - last 24 hr 06/12/21 07:09: WBC 12.1 H D, RBC 4.70, Hgb 12.9, Hct 41.8, MCV 88.8, MCH 27.4, MCHC 30.8 L, RDW 15.6, Plt Count 333, MPV 7.3 L, Neut % (Auto) 76.1, Lymph % (Auto) 18.1, [place] % (Auto) 4.8, Eos % (Auto) 0.7, Baso % (Auto) 0.4, Neut # (Auto) 9.2 H, Lymph # (Auto) 2.2, [place] # (Auto) 0.6, Eos # (Auto) 0.1, Baso # (Auto) 0.0 06/12/21 07:09: Sodium 140, Potassium 4.5, Chloride 100, Carbon Dioxide 34 H, Anion Gap 10.5, BUN 12, Creatinine 0.70, Estimated Creat Clear 119, Estimated GFR 87, Est GFR ( Amer) 105, Glucose 136 H, Calcium 8.6 I & O for Last 24 hours: Intake & Output 06/09/21 06/10/21 06/11/21 06/12/21 11:59 11:59 11:59 11:59 Intake Total 360 / 360 2079 Balance 360 / 360 2079 Weight 182 lb 15.739 oz - Constitutional no acute distress, obese - *Routine HEENT Exam Head: Present: normocephalic Eye: Present: EOMI, PERRL ENT: Present: mucous membranes dry - *Routine Neck Exam Present: supple. Absent: JVD - *Routine Respiratory Exam Present: decreased breath sounds - *Routine Cardiovascular Exam Present: RRR, murmur - *Routine Abdominal Exam Present: soft - *Routine Extremities Exam Absent: calf tenderness - *Routine Skin Exam Present: intact - *Routine Neurological Exam Present: alert, CN II-XII intact - Routine Psychiatric Exam Present: normal affect Assessment and Plan (1) Acute exacerbation of chronic obstructive airways disease Status: Acute Category: Medical Code(s): J44.1 - Chronic obstructive pulmonary disease with (acute) exacerbation (2) COVID-19 Status: Acute Category: Medical Code(s): U07.1 - COVID-19 (3) Community acquired pneumonia Status: Acute Qualifiers: Laterality: right Lung location: lower lobe of lung Qualified Code(s): J18.9 - Pneumonia, unspecified organism Category: Medical Code(s): J18.9 - Pneumonia, unspecified organism (4) Tobacco abuse Status: Acute Category: Medical Code(s): Z72.0 - Tobacco use (5) Obesity (BMI 30-39.9) Status: Acute Category: Medical Code(s): E66.9 - Obesity, unspecified (6) Multiple rib fractures Status: Acute Qualifiers: Encounter type: subsequent encounter Fracture type: closed Laterality: right Fracture healing: with routine healing Qualified Code(s): S22.41XD - Multiple fractures of ribs, right side, subsequent encounter for fracture with routine healing Category: Medical Code(s): S22.49XA - Multiple fractures of ribs, unspecified side, initial encounter for closed fracture (7) Interstitial lung disease Status: Acute Category: Medical Code(s): J84.9 - Interstitial pulmonary disease, unspecified
--- NOTE | 2021-06-12 10:53 | HMH.PHACONS ---
- Pharmacy Consult Date: 06/12/21 Time: 10:53 Referring provider: DR. CARMICHAEL Reason for Consult:: Pharmacokinetic dosing service Objective: Patient: Floor: Age: 55 yo Serum creatinine: 0.70 mg/dL Height: 59.1 Inches Weight (kg): 83 Assessment: IBW (kg): 44.82 Dosing wt(kg): 83 Estimated Creatinine clearance (ml/min): 64.3 CRCL method: Cockcroft and Gault using ibw(default). Drug selected: Vancomycin Loading dose (mg): Vd (liters): 58.1 (factor used: 0.7 L/kg) Jamal (hr-1): 0.058 Half life (hrs): 11.95 CLvanco=?? 3.370 L/hr Recommended dose: 1500 mg Interval: 18 hrs Infusion time (hrs): 2.0 Predicted peak (mcg/mL): 37.6 Predicted trough (mcg/mL): 14.86 Total body weight is being used for vancomycin dosing. Recommendations: Give Vancomycin 1500 mg q 18 hrs with an expected Cpeak of 37.6 mcg/ml and an expected Ctrough of 14.86 mcg/ml AUC 0-24 /HOMERO Data: HOMERO 0.5 mcg/mL:?? AUC/HOMERO:? 1186.9 HOMERO 1.0 mcg/mL:?? AUC/HOMERO:? 593.5 --------- HOMERO 1.5 mcg/mL:?? AUC/HOMERO:? 395.6 HOMERO 2.0 mcg/mL:?? AUC/HOMERO:? 296.7 Thank you for the consult, will continue to follow. -REINA BRANTLEY PHARMD Allergies and ADEs:: Allergies Allergy/AdvReac Type Severity Reaction Status Date / Time ketorolac Allergy Intermediate Hives Verified 06/03/21 11:12 codeine Allergy Hives Verified 06/03/21 11:12 clarithromycin AdvReac Liver Pain Verified 06/03/21 11:12 Home Medications:: Home Medications Medication Instructions Recorded Confirmed Type ipratropium 0.5 mg-albuterol 3 mg 3 ml INHALATION TID PRN #90 neb 02/26/21 06/10/21 Rx (2.5 mg base)/3 mL nebulization soln ergocalciferol (vitamin D2) 1,250 5,000 unit PO DAILY cap 06/03/21 06/11/21 History mcg (50,000 unit) capsule mometasone-formoterol HFA 200 2 puff INHALATION BID 06/03/21 06/10/21 History mcg-5 mcg/actuation aerosol inhaler montelukast 10 mg tablet 10 mg PO DAILY #90 tab 06/03/21 06/10/21 Rx Azelastine HCl [Azelastine Nasal 2 spray INTRANASAL BID 06/10/21 06/10/21 History [place] 30mL Bottle] Baclofen [Lioresal 10mg tablet] 10 mg PO BID 06/10/21 06/11/21 History Furosemide [Furosemide 20mg Tab*] 20 mg PO DAILY 06/10/21 06/10/21 History Pantoprazole Sodium 40 mg PO DAILY 06/10/21 06/10/21 History ALPRAZolam [Alprazolam Xr] 0.5 mg PO BID 06/11/21 06/10/21 History Albuterol Sulfate [Proventil Hfa] 1 inh INHALATION QIDP PRN 06/11/21 06/11/21 History dilTIAZem HCL [Diltiazem ER] 120 mg PO DAILY 06/11/21 06/11/21 History Height: 1.5 m Weight: 83 kg Laboratory Results:: Laboratory Results - last 24 hr 06/12/21 07:09: WBC 12.1 H D, RBC 4.70, Hgb 12.9, Hct 41.8, MCV 88.8, MCH 27.4, MCHC 30.8 L, RDW 15.6, Plt Count 333, MPV 7.3 L, Neut % (Auto) 76.1, Lymph % (Auto) 18.1, [place] % (Auto) 4.8, Eos % (Auto) 0.7, Baso % (Auto) 0.4, Neut # (Auto) 9.2 H, Lymph # (Auto) 2.2, [place] # (Auto) 0.6, Eos # (Auto) 0.1, Baso # (Auto) 0.0 06/12/21 07:09: Sodium 140, Potassium 4.5, Chloride 100, Carbon Dioxide 34 H, Anion Gap 10.5, BUN 12, Creatinine 0.70, Estimated Creat Clear 119, Estimated GFR 87, Est GFR ( Amer) 105, Glucose 136 H, Calcium 8.6 Medical History: Reports:: Anxiety, Asthma, Chronic Obstructive Pulmonary Disease (COPD), Depression, Hypertension Denies:: Cancer, Diabetes Mellitus Type 1, Diabetes Mellitus Type 2, Home Oxygen, Internal Pacemaker, MRSA Assessment and Plan (1) Acute exacerbation of chronic obstructive airways disease Status: Acute Category: Medical Code(s): J44.1 - Chronic obstructive pulmonary disease with (acute) exacerbation (2) COVID-19 Status: Acute Category: Medical Code(s): U07.1 - COVID-19 (3) Community acquired pneumonia Status: Acute Qualifiers: Laterality: right Lung location
--- NOTE | 2021-06-12 18:36 | PC.NURSE ---
Pt has been pleasant and cooperative this shift. Pt is A&O X4. Pt is currently receiving humidified O2 via NC @ 7 LPM with sats. >90%. Lung sounds reveal expiratory rhonchi. No edema noted. Skin is C/D/I. Telemetry reveals NSR. Pt ambulates independently in the room and uses the BSC. Urine is clear and yellow. 1 large, brown stool today. Appetite is good and pt eats the majority of all meals. Pt has been instructed to provide a sputum sample and a specimen cup is at bedside. 20 G peripheral IV in the LT forearm is patent and infusing LR @ 75 ML/HR. VSS. Call light within reach. Will continue to monitor.
[2021-06-13] VITALS (10 sets, daily range): BP systolic 141–169; BP diastolic 74–102; PULSE 80–112; RESP 20–26; TEMP 36.4–37.3; O2SAT 81–90; BMI 39.4
--- NOTE | 2021-06-13 02:42 | PC.NURSE ---
Pt is A/O x4. No acute changes t/o shift. Pt denies any pain. Pt remains on 7L NC. Pt will destat to around 70% while getting up to bedside commode, she will recover to mid-high 80%, she states she does feel SOA at times. VSS, call light within reach, will continue to monitor.
[2021-06-13 07:14] LABS: Basophils # 0.1 K/mm3 (0-0.2); Basophils % 0.5 % (0.1-2.0); Eosinophils # 0.2 K/mm3 (0.0-0.4); Eosinophils % 2.1 % (0.1-12.0); Hematocrit 40.6 % (37.0-47.0); Hemoglobin 12.5 g/dL (12.2-16.2); Lymphocytes # 1.9 K/mm3 (0.7-4.5); Lymphocytes % 19.4 % (10-50); Mean Corpuscular HGB Conc 30.7 g/dL (31.8-35.4); Mean Corpuscular Hemoglobin 26.7 pg (27.0-31.2); Mean Corpuscular Volume 87.1 fl (81-99); Mean Platelet Volume 7.3 fl (7.4-10.4); Monocytes # 0.9 K/mm3 (0.1-1.0); Monocytes % 9.2 % (1.7-9.3); Neutrophils # 6.9 K/mm3 (1.8-7.8); Neutrophils % 68.9 % (37.0-80.0); Platelet Count 349 K/mm3 (142-424); Red Blood Count 4.67 M/mm3 (4.20-5.40); Red Cell Distribution Width 15.9 % (11.5-17.5)
[2021-06-13 07:36] LABS: Alanine Aminotransferase 20 U/L (12-78); Albumin Level 3.1 g/dl (3.5-5.0); Alkaline Phosphatase 100 U/L (38-126); Anion Gap 11.1 mEq/L (5-15); Aspartate Amino Transferase 21 U/L (14-36); Bilirubin,Total 0.6 mg/dl (0.2-1.3); Blood Urea Nitrogen 23 mg/dl (7-17); Calcium 8.4 mg/dl (8.4-10.2); Carbon Dioxide 34 mmol/L (22.0-30.0); Chloride 96 mmol/L (98-107); Creatinine Clearance Estimated 127 mL/min (50-200); Estimated Glomerular Filt Rate 87 ml/min (>60); GFR (African American) 105 ML/MIN (>60); Globulin 3.2 g/dL (1.3-3.2); Glucose 115 mg/dl (74-100); Potassium 4.1 mmoL/L (3.5-5.1); Sodium 137 mmol/L (136-145); Total Protein,Serum 6.3 g/dl (6.3-8.2)
--- NOTE | 2021-06-13 09:04 | XR_ITS ---
PROCEDURE INFORMATION: Exam: XR Chest Exam date and time: 06/13/2021 9:04 AM Age: 55 years old Clinical indication: Shortness of breath and wheezing and other: Covid; Additional info: SOB TECHNIQUE: Imaging protocol: XR of the chest. Views: 1 view. COMPARISON: CR XR CHEST PORTABLE 06/10/2021 4:49 PM FINDINGS: Limited inspiration and penetration of the chest with obese body habitus. Lungs: Bilateral interstitial airspace opacities within the right lung as well as within left mid and lower lung zones is unchanged. Relative sparing of the left upper lobe as on prior examination. Pleural spaces: Unremarkable. No pleural effusion. No pneumothorax. Heart/Mediastinum: Unremarkable. No cardiomegaly. Bones/joints: Unremarkable. IMPRESSION: The degree and distribution of bilateral airspace opacities within the lungs is unchanged since 06/10/2021.
--- NOTE | 2021-06-13 11:19 | HMH.ACPN2 ---
Internal Medicine - PN: Subj *Date: 06/13/21 *Time: 11:19 Interval history: pt with sob with exertion - but reports feels better Exam Vital signs and Labs for Last 24 Hours: Temp Pulse Resp BP Pulse Ox 98.2 F 92 H 24 162/78 H 89 L 06/13/21 08:00 06/13/21 08:00 06/13/21 08:00 06/13/21 08:00 06/13/21 08:00 Laboratory Results - last 24 hr 06/13/21 06:51: WBC 10.0, RBC 4.67, Hgb 12.5, Hct 40.6, MCV 87.1, MCH 26.7 L, MCHC 30.7 L, RDW 15.9, Plt Count 349, MPV 7.3 L, Neut % (Auto) 68.9, Lymph % (Auto) 19.4, [place] % (Auto) 9.2, Eos % (Auto) 2.1, Baso % (Auto) 0.5, Neut # (Auto) 6.9, Lymph # (Auto) 1.9, [place] # (Auto) 0.9, Eos # (Auto) 0.2, Baso # (Auto) 0.1 06/13/21 06:51: Sodium 137, Potassium 4.1, Chloride 96 L, Carbon Dioxide 34 H, Anion Gap 11.1, BUN 23 H D, Creatinine 0.70, Estimated Creat Clear 127, Estimated GFR 87, Est GFR ( Amer) 105, Glucose 115 H, Calcium 8.4, Total Bilirubin 0.6, AST 21, ALT 20, Alkaline Phosphatase 100, Total Protein 6.3, Albumin 3.1 L, Globulin 3.2, Albumin/Globulin Ratio 1.0 L I & O for Last 24 hours: Intake & Output 06/10/21 06/11/21 06/12/21 06/13/21 11:59 11:59 11:59 11:59 Intake Total 360 / 360 2080 / 2080 600 / 600 Output Total 1200 / 1200 Balance 360 / 360 880 / 880 600 / 600 Weight 182 lb 15.739 oz 195 lb 6 oz Microbiology Reports for the Last 24 Hours: Microbiology 06/12/21 21:09 Sputum - Expectorated Sputum Gram Stain - Final 06/12/21 21:09 Sputum - Expectorated Sputum Sputum Culture - Final 06/10/21 16:16 Blood Blood Culture - Preliminary NO GROWTH AFTER 48 HOURS 06/10/21 16:16 Blood Blood Culture - Preliminary NO GROWTH AFTER 48 HOURS - Constitutional no acute distress, obese - *Routine HEENT Exam Head: Present: normocephalic Eye: Present: EOMI, PERRL ENT: Present: mucous membranes dry - *Routine Neck Exam Present: supple. Absent: JVD - *Routine Respiratory Exam Present: decreased breath sounds - *Routine Cardiovascular Exam Present: RRR. Absent: murmur - *Routine Abdominal Exam Present: soft - *Routine Extremities Exam Absent: Tari's sign - *Routine Skin Exam Present: intact - *Routine Neurological Exam Present: alert, CN II-XII intact. Absent: motor deficit - Routine Psychiatric Exam Present: cooperative Assessment and Plan (1) Acute exacerbation of chronic obstructive airways disease Status: Acute Category: Medical Code(s): J44.1 - Chronic obstructive pulmonary disease with (acute) exacerbation (2) COVID-19 Status: Acute Category: Medical Code(s): U07.1 - COVID-19 (3) Community acquired pneumonia Status: Acute Qualifiers: Laterality: right Lung location: lower lobe of lung Qualified Code(s): J18.9 - Pneumonia, unspecified organism Category: Medical Code(s): J18.9 - Pneumonia, unspecified organism (4) Tobacco abuse Status: Acute Category: Medical Code(s): Z72.0 - Tobacco use (5) Obesity (BMI 30-39.9) Status: Acute Category: Medical Code(s): E66.9 - Obesity, unspecified (6) Multiple rib fractures Status: Acute Qualifiers: Encounter type: subsequent encounter Fracture type: closed Laterality: right Fracture healing: with routine healing Qualified Code(s): S22.41XD - Multiple fractures of ribs, right side, subsequent encounter for fracture with routine healing Category: Medical Code(s): S22.49XA - Multiple fractures of ribs, unspecified side, initial encounter for closed fracture (7) Interstitial lung disease Status: Acute Category: Medical Code(s): J84.9 - Interstitial pulmonary disease, unspecified
--- NOTE | 2021-06-13 17:23 | PC.NURSE ---
Pt has been pleasant and cooperative this shift. Pt is A&O X4. Pt is currently receiving humidified O2 via NC @ 7 LPM with sats. >88%. Lung sounds reveal expiratory rhonchi. No edema noted. Skin is C/D/I. Telemetry reveals NSR. Pt ambulates independently in the room and uses the BSC. Urine is clear and yellow. 1 large, soft, brown stool today. Appetite is good and pt eats the majority of all meals. 20 G peripheral IV in the RT forearm is patent and infusing LR @ 75 ML/HR. VSS. Call light within reach. Will continue to monitor.
[2021-06-14] VITALS (12 sets, daily range): BP systolic 123–166; BP diastolic 71–103; PULSE 90–110; RESP 18–24; TEMP 36.5–37.3; O2SAT 81–95
[2021-06-14 01:24] LABS: Vancomycin,Trough 10.4 ug/mL (5.0-10.0)
--- NOTE | 2021-06-14 02:20 | PC.NURSE ---
Patient called out and stated her IV was burning after starting Vancomycin @ 01:15, pt's arm looks to be having a reaction to the Vancomycin. Tried to get IV access X2 with no success. Notified Dr. Chiu. stated to hold Vancomycin and he will address in the morning.
[2021-06-14 04:29] LABS: Basophils # 0.1 K/mm3 (0-0.2); Basophils % 0.9 % (0.1-2.0); Eosinophils # 0.3 K/mm3 (0.0-0.4); Eosinophils % 2.7 % (0.1-12.0); Hematocrit 44.5 % (37.0-47.0); Hemoglobin 13.4 g/dL (12.2-16.2); Lymphocytes % 20.3 % (10-50); Mean Corpuscular Hemoglobin 27.4 pg (27.0-31.2); Mean Corpuscular Volume 91.3 fl (81-99); Mean Platelet Volume 8.6 fl (7.4-10.4); Monocytes # 0.6 K/mm3 (0.1-1.0); Monocytes % 6.1 % (1.7-9.3); Neutrophils # 6.8 K/mm3 (1.8-7.8); Neutrophils % 70.1 % (37.0-80.0); Platelet Count 245 K/mm3 (142-424); Red Blood Count 4.87 M/mm3 (4.20-5.40); Red Cell Distribution Width 15.5 % (11.5-17.5); White Blood Count 9.8 K/mm3 (4.8-10.8)
[2021-06-14 04:48] LABS: Vancomycin,Peak 13.4 ug/ml (11-39)
[2021-06-14 04:53] LABS: Chloride 99 mmol/L (98-107)
[2021-06-14 04:54] LABS: Potassium 4.2 mmoL/L (3.5-5.1); Sodium 135 mmol/L (136-145)
[2021-06-14 04:56] LABS: Alanine Aminotransferase 16 U/L (12-78); Aspartate Amino Transferase 21 U/L (14-36); Blood Urea Nitrogen 13 mg/dl (7-17); Creatinine Clearance Estimated 127 mL/min (50-200); Estimated Glomerular Filt Rate 87 ml/min (>60); GFR (African American) 105 ML/MIN (>60)
[2021-06-14 04:57] LABS: Albumin/Globulin Ratio 1.1 (1.1-1.8); Alkaline Phosphatase 99 U/L (38-126); Anion Gap 12.2 mEq/L (5-15); Bilirubin,Total 0.7 mg/dl (0.2-1.3); Calcium 8.3 mg/dl (8.4-10.2); Carbon Dioxide 28 mmol/L (22.0-30.0); Globulin 2.8 g/dL (1.3-3.2); Glucose 114 mg/dl (74-100); Total Protein,Serum 5.8 g/dl (6.3-8.2)
--- NOTE | 2021-06-14 11:05 | HMH.PULMCON ---
*Admission Date: 06/11/21 *Reason for consult:: COVID-19 pneumonia. Acute on chronic hypoxic respiratory failure. *History of present illness: Ms. Simmons is an anxious 55-year-old female greater than [id number] smoking she last smoked around 2017, currently smokes marijuana daily basis, carries a childhood diagnosis of asthma being followed in pulmonary clinic for exertional dyspnea last seen in February with the plan of follow-up testing however no testing performed yet presented to hospital with worsening respiratory distress and found to be COVID-19 positive and pulmonary was called for further management. [facility] History Medical History: Reports:: Anxiety, Asthma, Chronic Obstructive Pulmonary Disease (COPD), Depression, Hypertension Denies:: Cancer, Diabetes Mellitus Type 1, Diabetes Mellitus Type 2, Home Oxygen, Internal Pacemaker, MRSA *Have you ever received a pneumonia vaccine?: Yes *Have you received a flu vaccine this season?: No Other Medical History: Reports: Cataracts, Fibromyalgia, Glaucoma Laterality Cases: Right: Arthroscopy Shoulder, Bilateral: Tonsillectomy Other Surgeries: Yes: Tubal Ligation, Other (trigger finger release, tonsils/adenoids). No: Pacemaker Amputation: No - *Social History Last grade of school completed: Some college Smoking Status: Former smoker Tobacco Type: cigarettes Alcohol Intake: never Alcohol Intake Frequency:: 0-2 drinks per day Substance Use Type: marijuana *Occupational Status:: disabled Household Members: children *Travel in the last 8 weeks: None - Psychiatric History Pschychiatric History:: Reports:: Anxiety, Depression Family Hx:: No significant family history ROS - Cons Reports anorexia, Reports body ache(s) - ENT Denies bleeding gums - Card Reports shortness of breath, Reports shortness of breath with activity, Reports leg swelling - Resp Respiratory: Reports chest congestion, Reports cough, Reports excessive phlegm production - GI Gastrointestingal: Denies: abdominal pain - [place] Musculoskeletal: Reports back pain - Psych Reports abnormal sleep pattern Meds Home Medications Medication Instructions Recorded Confirmed Type ipratropium 0.5 mg-albuterol 3 mg 3 ml INHALATION TID PRN #90 neb 02/26/21 06/10/21 Rx (2.5 mg base)/3 mL nebulization soln ergocalciferol (vitamin D2) 1,250 5,000 unit PO DAILY cap 06/03/21 06/11/21 History mcg (50,000 unit) capsule mometasone-formoterol HFA 200 2 puff INHALATION BID 06/03/21 06/10/21 History mcg-5 mcg/actuation aerosol inhaler montelukast 10 mg tablet 10 mg PO DAILY #90 tab 06/03/21 06/10/21 Rx Azelastine HCl [Azelastine Nasal 2 spray INTRANASAL BID 06/10/21 06/10/21 History [place] 30mL Bottle] Baclofen [Lioresal 10mg tablet] 10 mg PO BID 06/10/21 06/11/21 History Furosemide [Furosemide 20mg Tab*] 20 mg PO DAILY 06/10/21 06/10/21 History Pantoprazole Sodium 40 mg PO DAILY 06/10/21 06/10/21 History ALPRAZolam [Alprazolam Xr] 0.5 mg PO BID 06/11/21 06/10/21 History Albuterol Sulfate [Proventil Hfa] 1 inh INHALATION QIDP PRN 06/11/21 06/11/21 History dilTIAZem HCL [Diltiazem ER] 120 mg PO DAILY 06/11/21 06/11/21 History Allergies Allergy/AdvReac Type Severity Reaction Status Date / Time ketorolac Allergy Intermediate Hives Verified 06/03/21 11:12 codeine Allergy Hives Verified 06/03/21 11:12 clarithromycin AdvReac Liver Pain Verified 06/03/21 11:12 Exam - Constitutional Constitutional:: Present: comfortable - HENMT Exam HENMT: Present: normocephalic, atraumatic - Eye Exam Eyes:: Present: normal appearance both eyes and related structures - Neck Exam Neck:: Present: normal visual inspection - Respiratory Exam Respiratory:: Present: able to speak in complete sentences, respiratory distress, crackles, rales - Cardiovascular Exam Cardiac:: Present: S1, S2 - GI Exam GI:: Present: soft, obese - Skin Exam Skin: Present: warm - Neurological Exam Neurological: Present: alert, awake, n
[2021-06-14 11:33] LABS: C-Reactive Protein 83.7 mg/L (0-4)
--- NOTE | 2021-06-14 14:37 | DIET.NUTRFU ---
Pt PO intake 44% average at last four meals. Will add Ensure to breakfast tray where worst PO intake is typically recorded. Glucose running at 136, 115, 114. Will continue to monitor.
--- NOTE | 2021-06-14 15:24 | HMH.ACPN2 ---
Internal Medicine - PN: Subj *Date: 06/14/21 *Time: 08:00 Interval history: doing ok on 6l and sob and dec sat with ambulation Exam Vital signs and Labs for Last 24 Hours: Temp Pulse Resp BP Pulse Ox 97.9 F 92 H 18 128/73 92 L 06/14/21 14:57 06/14/21 14:57 06/14/21 14:57 06/14/21 14:57 06/14/21 15:22 Laboratory Results - last 24 hr 06/14/21 00:30: Vancomycin Trough 10.4 H 06/14/21 04:15: WBC 9.8, RBC 4.87, Hgb 13.4, Hct 44.5, MCV 91.3, MCH 27.4, MCHC 30.0 L, RDW 15.5, Plt Count 245 D, MPV 8.6, Neut % (Auto) 70.1, Lymph % (Auto) 20.3, [place] % (Auto) 6.1, Eos % (Auto) 2.7, Baso % (Auto) 0.9, Neut # (Auto) 6.8, Lymph # (Auto) 2.0, [place] # (Auto) 0.6, Eos # (Auto) 0.3, Baso # (Auto) 0.1 06/14/21 04:15: Sodium 135 L, Potassium 4.2, Chloride 99, Carbon Dioxide 28, Anion Gap 12.2, BUN 13 D, Creatinine 0.70, Estimated Creat Clear 127, Estimated GFR 87, Est GFR ( Amer) 105, Glucose 114 H, Calcium 8.3 L, Total Bilirubin 0.7, AST 21, ALT 16, Alkaline Phosphatase 99, Total Protein 5.8 L, Albumin 3.0 L, Globulin 2.8, Albumin/Globulin Ratio 1.1 06/14/21 04:15: Vancomycin Peak 13.4 06/14/21 05:00: C-Reactive Protein 83.7 H I & O for Last 24 hours: Intake & Output 06/12/21 06/13/21 06/14/21 06/15/21 11:59 11:59 11:59 11:59 Intake Total 2080 / 2080 600 / 600 630 / 630 360 / 360 Output Total 1200 / 1200 Balance 880 / 880 600 / 600 630 / 630 360 / 360 Weight 195 lb 6 oz - Constitutional no acute distress, obese - *Routine HEENT Exam Head: Present: normocephalic Eye: Present: PERRL ENT: Present: mucous membranes dry - *Routine Neck Exam Absent: JVD - *Routine Respiratory Exam Present: decreased breath sounds - *Routine Cardiovascular Exam Present: RRR, murmur, S4 - *Routine Abdominal Exam Present: soft - *Routine Extremities Exam Present: edema - *Routine Skin Exam Present: intact - *Routine Neurological Exam Present: alert, oriented X3, CN II-XII intact - Routine Psychiatric Exam Present: cooperative Assessment and Plan (1) Acute exacerbation of chronic obstructive airways disease Status: Acute Category: Medical Code(s): J44.1 - Chronic obstructive pulmonary disease with (acute) exacerbation (2) COVID-19 Status: Acute Category: Medical Code(s): U07.1 - COVID-19 (3) Community acquired pneumonia Status: Acute Qualifiers: Laterality: right Lung location: lower lobe of lung Qualified Code(s): J18.9 - Pneumonia, unspecified organism Category: Medical Code(s): J18.9 - Pneumonia, unspecified organism (4) Tobacco abuse Status: Acute Category: Medical Code(s): Z72.0 - Tobacco use (5) Obesity (BMI 30-39.9) Status: Acute Category: Medical Code(s): E66.9 - Obesity, unspecified (6) Multiple rib fractures Status: Acute Qualifiers: Encounter type: subsequent encounter Fracture type: closed Laterality: right Fracture healing: with routine healing Qualified Code(s): S22.41XD - Multiple fractures of ribs, right side, subsequent encounter for fracture with routine healing Category: Medical Code(s): S22.49XA - Multiple fractures of ribs, unspecified side, initial encounter for closed fracture (7) Interstitial lung disease Status: Acute Category: Medical Code(s): J84.9 - Interstitial pulmonary disease, unspecified
--- NOTE | 2021-06-14 20:34 | PC.NURSE ---
Pt did refuse to wear bipap this am, and was placed on vapotherm, per RT. Pt took meds per nov and refused IV access at this time, MD Dr. Chiu is aware and did change meds to po meds. Pt also did take off vapotherm on last round and place her nasal cannula at 6 L back on and state that she had to remove it for [id number] vapotherm). This RN explained it was needed and if sats decreased she would have to promtly put it back on, pt seemed to be in NAD and was verbally agreeably to do so. VSS. Report given on pt to Ambika Rose RN, she was also collecting MRSA swab. RT updated as well.
[2021-06-15] VITALS (9 sets, daily range): BP systolic 123–157; BP diastolic 70–94; PULSE 79–116; RESP 16–20; TEMP 36.4–36.7; O2SAT 85–94; BMI 37.8
--- NOTE | 2021-06-15 03:57 | PC.NURSE ---
No acute changes t/o night. Pt remains on the 6L NC with O2 stats in mid to high 80's. Pt refuses to wear the vapotherm this shift. Pt reports to have no pain, N/V. Pt remains to have no IV access. MRSA swab was obtained this shift and sent to lab. Call light within reach.
[2021-06-15 07:09] LABS: Basophils # 0.1 K/mm3 (0-0.2); Basophils % 0.4 % (0.1-2.0); Eosinophils % 0.1 % (0.1-12.0); Hematocrit 45.2 % (37.0-47.0); Hemoglobin 14.1 g/dL (12.2-16.2); Lymphocytes # 1.5 K/mm3 (0.7-4.5); Lymphocytes % 11.6 % (10-50); Mean Corpuscular HGB Conc 31.2 g/dL (31.8-35.4); Mean Corpuscular Hemoglobin 26.8 pg (27.0-31.2); Mean Platelet Volume 8.2 fl (7.4-10.4); Monocytes # 0.5 K/mm3 (0.1-1.0); Monocytes % 3.5 % (1.7-9.3); Neutrophils # 10.7 K/mm3 (1.8-7.8); Neutrophils % 84.4 % (37.0-80.0); Platelet Count 518 K/mm3 (142-424); Red Blood Count 5.26 M/mm3 (4.20-5.40); Red Cell Distribution Width 15.8 % (11.5-17.5); White Blood Count 12.7 K/mm3 (4.8-10.8)
[2021-06-15 07:12] LABS: Alanine Aminotransferase 19 U/L (12-78); Albumin Level 3.4 g/dl (3.5-5.0); Alkaline Phosphatase 107 U/L (38-126); Anion Gap 11.5 mEq/L (5-15); Aspartate Amino Transferase 20 U/L (14-36); Bilirubin,Total 0.6 mg/dl (0.2-1.3); Blood Urea Nitrogen 12 mg/dl (7-17); Carbon Dioxide 34 mmol/L (22.0-30.0); Chloride 94 mmol/L (98-107); Creatinine Clearance Estimated 122 mL/min (50-200); Estimated Glomerular Filt Rate 87 ml/min (>60); GFR (African American) 105 ML/MIN (>60); Globulin 3.4 g/dL (1.3-3.2); Glucose 265 mg/dl (74-100); Potassium 4.5 mmoL/L (3.5-5.1); Sodium 135 mmol/L (136-145); Total Protein,Serum 6.8 g/dl (6.3-8.2)
--- NOTE | 2021-06-15 08:00 | CA_ITS ---
APPROVED REPORT EXAM: Comprehensive 2D, Doppler, and color-flow Echocardiogram [employer] Load[employer] Operator: Jeny Roland RT(R) Ht: 4 ft 11 in Wt: 195lbs BSA: 1.83 BP: 128/73 mmHg Indications: COVID Pneumonia, CHF, Smokes marijuana daily, ex smoker, SOB, obesity, noncompliant with meds and vapotherm. Limited imaging. M-Mode Dimensions RVDd 2.01 cm (0.9-2.6) LA Diam 3.70 cm (1.9-4.0) LVDd 5.55 cm (3.5-5.7) Ao Diam 2.76 cm (2.0-3.7) LVDs 4.18 cm (3.5-5.7) IVSd 1.08 cm (0.6-1.1) PWd 1.03 cm (0.6-1.1) EF (Teich) 48.40% FS 24.70% EDV (Teich) 150.50 mL ESV (Teich) 77.70 mL LV Diastology E Decel Time 153.00 (160-240 msec) E/A Ratio 0.5 LAT E' 6.70 (<10 cm/sec) E/LAT E' Ratio 8.82 (>14) Mitral Valve MV E Max Mikie. 59.00 (40-130 cm/s) MV A Velocity 113.00 (40-130 cm/s) E/A Ratio 0.52 MV Decel. Time 153.00 (160-240 ms) MV PHT 45.00 ms Left Ventricle Left atrium is mildly enlarged, left ventricle is normal size, mild concentric left ventricular hypertrophy, visually estimated ejection fraction 55% with no wall motion abnormality.evidence of insufficiency present adequate. Right Ventricle Right atrium left atrial enlargement normal contractility. Aortic Valve Aortic valve is minimally thickened without stenosis or aortic insufficiency. Mitral Valve Mitral valve grossly normal, there is trace mitral regurgitation. Tricuspid Valve Tricuspid valve grossly normal, there is trace tricuspid regurgitation, tricuspid regurgitation jet velocity is inadequate for calculation of the right ventricular systolic pressure. Pulmonic Valve Pulmonic valve is poorly visualized. Great Vessels Aortic root is normal size. Pericardium No significant pericardial effusion noted. Conclusion 1. Normal left ventricular size, preserved left ventricular systolic function, visually estimated ejection fraction 55% with no obvious regional wall motion abnormality, Doppler evidence of impaired LV relaxation. 2. Qualitatively mildly enlarged right ventricle with normal contractility. 3. Trace mitral and tricuspid regurgitation. 4. No significant pericardial effusion noted. Electronically signed by : Alfredo Matt MD 06/15/2021 19:22:00
--- NOTE | 2021-06-15 09:30 | HMH.PULMPN ---
Internal Medicine - PN: Subj *Date: 06/15/21 *Time: 11:47 Interval history: No acute respiratory vents overnight. Patient admits improvement in her symptoms. Exam - Constitutional Constitutional:: Present: no acute distress, comfortable - HENMT Exam HENMT: Present: normocephalic - Eye Exam Eyes:: Present: normal appearance both eyes and related structures - Neck Exam Neck:: Present: normal visual inspection - Respiratory Exam Respiratory:: Present: able to speak in complete sentences, respiratory distress, decreased breath sounds - Cardiovascular Exam Cardiac:: Present: S1, S2 - GI Exam GI:: Present: soft, obese - Skin Exam Skin: Present: warm, no rash - Neurological Exam Neurological: Present: alert, awake, normal cognition - Extremities Exam Extremities: Present: no cyanosis, no clubbing, edema - Psychiatric Exam Psychiatric: Present: normal affect Assessment and Plan (1) Acute exacerbation of chronic obstructive airways disease Status: Acute Category: Medical Code(s): J44.1 - Chronic obstructive pulmonary disease with (acute) exacerbation (2) COVID-19 Status: Acute Category: Medical Code(s): U07.1 - COVID-19 (3) Community acquired pneumonia Status: Acute Qualifiers: Laterality: right Lung location: lower lobe of lung Qualified Code(s): J18.9 - Pneumonia, unspecified organism Category: Medical Code(s): J18.9 - Pneumonia, unspecified organism (4) Tobacco abuse Status: Acute Category: Medical Code(s): Z72.0 - Tobacco use (5) Obesity (BMI 30-39.9) Status: Acute Category: Medical Code(s): E66.9 - Obesity, unspecified (6) Multiple rib fractures Status: Acute Qualifiers: Encounter type: subsequent encounter Fracture type: closed Laterality: right Fracture healing: with routine healing Qualified Code(s): S22.41XD - Multiple fractures of ribs, right side, subsequent encounter for fracture with routine healing Category: Medical Code(s): S22.49XA - Multiple fractures of ribs, unspecified side, initial encounter for closed fracture (7) Interstitial lung disease Status: Acute Category: Medical Code(s): J84.9 - Interstitial pulmonary disease, unspecified - Assessment and plan all Dx Assessment and Plan for all problems:: #Acute hypoxic respiratory failure: #Interstitial lung disease: 55-year-old anxious prior smoker history of asthma recent diagnosis of COVID-19 at outside hospital presents with worsening respiratory distress. CTA from admission reviewed, no evidence of pulmonary embolism. CT also showed bilateral diffuse interstitial changes with middle and lower lobe predominant ILD along with subpleural honeycombing and lower lobe patchy airspace disease. Patient also noted to have interstitial edema noted. Mediastinal and hilar lymphadenopathy also noted. CRP elevated at 83.7. Etiology is patient acute respiratory failure is multifactorial which include a combination of pneumonia, volume overload and possible NSIP. Interval update: Patient respiratory status slightly improved from yesterday. She continued to be needing 6 L nasal and saturations maintaining between 86 to 92% with no personal complaints of respiratory distress. Patient refusing high flow nasal cannula at this point of time. She has been receiving Bumex daily, continue to receive furosemide. No IV access obtained. Plan: -Given patient refusal to HFNC, will continue nasal cannula oxygen supplementation at 6-8 L to maintain O2 saturation goal of 88 to 92% patient would have intermittent desaturation will initiate nonrebreather at this point of time. -Blood cultures no growth 48 hours. Repeat sputum culture with induction. Follow nasal MRSA PCR. Continue antibiotics including linezolid awaiting repeat nasal MRSA PCR and sputum cultures will have a low threshold to de-escalate. Continue azithromycin. Blood cultures no growth 48 hours. Sputum did not meet the criteria. We
--- NOTE | 2021-06-15 10:25 | HMH.ACPN2 ---
Internal Medicine - PN: Subj *Date: 06/15/21 *Time: 19:53 Interval history: consuelo saturation 81 percent refusing high flow 02/bipap dyspnea on exertion ct chest reviewed ddx includes nsip echo reviewed pulmonary notes reviewed Exam Vital signs and Labs for Last 24 Hours: Temp Pulse Resp BP Pulse Ox 97.6 F 93 H 18 157/76 H 88 L 06/15/21 08:00 06/15/21 08:00 06/15/21 08:00 06/15/21 08:00 06/15/21 08:00 Laboratory Results - last 24 hr 06/14/21 05:00: C-Reactive Protein 83.7 H 06/15/21 06:30: WBC 12.7 H D, RBC 5.26, Hgb 14.1, Hct 45.2, MCV 86.0, MCH 26.8 L, MCHC 31.2 L, RDW 15.8, Plt Count 518 H D, MPV 8.2, Neut % (Auto) 84.4 H, Lymph % (Auto) 11.6, [place] % (Auto) 3.5, Eos % (Auto) 0.1, Baso % (Auto) 0.4, Neut # (Auto) 10.7 H, Lymph # (Auto) 1.5, [place] # (Auto) 0.5, Eos # (Auto) 0.0, Baso # (Auto) 0.1 06/15/21 06:30: Sodium 135 L, Potassium 4.5, Chloride 94 L, Carbon Dioxide 34 H, Anion Gap 11.5, BUN 12, Creatinine 0.70, Estimated Creat Clear 122, Estimated GFR 87, Est GFR ( Amer) 105, Glucose 265 H, Calcium 9.0, Total Bilirubin 0.6, AST 20, ALT 19, Alkaline Phosphatase 107, Total Protein 6.8, Albumin 3.4 L D, Globulin 3.4 H, Albumin/Globulin Ratio 1.0 L I & O for Last 24 hours: Intake & Output 06/12/21 06/13/21 06/14/21 06/15/21 23:59 23:59 23:59 23:59 Intake Total 720 / 780 510 / 510 965 / 965 120 / 120 Output Total 1200 / 1200 Balance -480 / -420 510 / 510 965 / 965 120 / 120 Weight 195 lb 6 oz 188 lb - Constitutional no acute distress - *Routine HEENT Exam Head: Present: normocephalic Eye: Present: EOMI, PERRL ENT: Present: mucous membranes moist - *Routine Neck Exam Present: supple. Absent: lymphadenopathy - *Routine Respiratory Exam Present: crackles. Absent: accessory muscle use, wheezes - *Routine Cardiovascular Exam Present: RRR - *Routine Abdominal Exam Present: soft, normoactive bowel sounds. Absent: tenderness - *Routine Extremities Exam Absent: cyanosis, clubbing, edema - *Routine Skin Exam Present: warm. Absent: rash - *Routine Neurological Exam Present: alert, oriented X3 Assessment and Plan (1) Acute exacerbation of chronic obstructive airways disease Status: Acute Category: Medical Code(s): J44.1 - Chronic obstructive pulmonary disease with (acute) exacerbation (2) COVID-19 Status: Acute Category: Medical Code(s): U07.1 - COVID-19 (3) Community acquired pneumonia Status: Acute Qualifiers: Laterality: right Lung location: lower lobe of lung Qualified Code(s): J18.9 - Pneumonia, unspecified organism Category: Medical Code(s): J18.9 - Pneumonia, unspecified organism (4) Tobacco abuse Status: Acute Category: Medical Code(s): Z72.0 - Tobacco use (5) Obesity (BMI 30-39.9) Status: Acute Category: Medical Code(s): E66.9 - Obesity, unspecified (6) Multiple rib fractures Status: Acute Qualifiers: Encounter type: subsequent encounter Fracture type: closed Laterality: right Fracture healing: with routine healing Qualified Code(s): S22.41XD - Multiple fractures of ribs, right side, subsequent encounter for fracture with routine healing Category: Medical Code(s): S22.49XA - Multiple fractures of ribs, unspecified side, initial encounter for closed fracture (7) Interstitial lung disease Status: Acute Category: Medical Code(s): J84.9 - Interstitial pulmonary disease, unspecified - Assessment and plan all Dx Assessment and Plan for all problems:: continue current regimen
--- NOTE | 2021-06-15 10:26 | XR_ITS ---
PROCEDURE: XR CHEST PORTABLE CLINICAL HISTORY: COVID Follow-up pneumonia COMPARISON: CR XR CHEST 2V from 08/25/2020 CR XR CHEST PORTABLE from 06/10/[address] ANGIO CHEST PE PROTOCOL from 06/10/2021 CR XR CHEST PORTABLE from 06/13/2021 FINDINGS: The cardiomediastinal silhouette and pulmonary vascularity are within normal limits. There remains prominence the interstitial markings with underlying COPD changes and atelectasis with faint infiltrate in the left lower lobe right upper lobe and right lower lobe. The atelectatic changes in the right upper lobe have shown some improvement. IMPRESSION: Slight improvement in the right upper lobe atelectasis with no change in the bilateral lower lobe atelectatic changes with faint infiltrate Dictated by: Tino Bean MD 06/15/2021 14:27 Tino Bean MD in [place] 06/15/2021 14:27
--- NOTE | 2021-06-15 19:00 | PC.NURSE ---
Pt continued to refuse vapotherm, has remained on 6 L NC with NAD. Have educated pt not to adjust 02 settings in room. CB in reach and VSS. Meds per nov.
[2021-06-16] VITALS (10 sets, daily range): BP systolic 134–161; BP diastolic 60–91; PULSE 84–120; RESP 20–22; TEMP 36.4–37; O2SAT 88–95; BMI 38.2
--- NOTE | 2021-06-16 03:54 | PC.NURSE ---
A&OX4. TOLERATING 6LNC. PT HAS HAD NO C/O THUS FAR. RESTING IN BED MAJORITY OF SHIFT. VSS WILL CONTINUE TO MONITOR.
--- NOTE | 2021-06-16 06:55 | PC.NURSE ---
ASSIGNMENT ACCEPTED UNDER DURESS.
[2021-06-16 07:12] LABS: Alanine Aminotransferase 22 U/L (12-78); Albumin Level 3.3 g/dl (3.5-5.0); Albumin/Globulin Ratio 1.1 (1.1-1.8); Alkaline Phosphatase 93 U/L (38-126); Anion Gap 12.7 mEq/L (5-15); Aspartate Amino Transferase 21 U/L (14-36); Bilirubin,Total 0.4 mg/dl (0.2-1.3); Blood Urea Nitrogen 13 mg/dl (7-17); Calcium 8.9 mg/dl (8.4-10.2); Carbon Dioxide 35 mmol/L (22.0-30.0); Chloride 93 mmol/L (98-107); Creatinine Clearance Estimated 108 mL/min (50-200); Estimated Glomerular Filt Rate 74 ml/min (>60); GFR (African American) 90 ML/MIN (>60); Globulin 3.1 g/dL (1.3-3.2); Glucose 390 mg/dl (74-100); Potassium 4.7 mmoL/L (3.5-5.1); Sodium 136 mmol/L (136-145); Total Protein,Serum 6.4 g/dl (6.3-8.2)
--- NOTE | 2021-06-16 09:28 | HMH.PULMPN ---
Internal Medicine - PN: Subj *Date: 06/16/21 *Time: 13:42 Interval history: No acute respite events overnight. Exam - Constitutional Constitutional:: Present: no acute distress, comfortable - HENMT Exam HENMT: Present: normocephalic, atraumatic - Eye Exam Eyes:: Present: normal appearance both eyes and related structures - Neck Exam Neck:: Present: normal visual inspection - Respiratory Exam Respiratory:: Present: able to speak in complete sentences, no respiratory distress, crackles, wheezing - Cardiovascular Exam Cardiac:: Present: S1, S2 - GI Exam GI:: Present: soft, obese - Skin Exam Skin: Present: warm - Neurological Exam Neurological: Present: alert, awake, normal cognition - Extremities Exam Extremities: Present: no cyanosis, no clubbing, edema - Psychiatric Exam Psychiatric: Present: normal affect Assessment and Plan (1) Acute exacerbation of chronic obstructive airways disease Status: Acute Category: Medical Code(s): J44.1 - Chronic obstructive pulmonary disease with (acute) exacerbation (2) COVID-19 Status: Acute Category: Medical Code(s): U07.1 - COVID-19 (3) Community acquired pneumonia Status: Acute Qualifiers: Laterality: right Lung location: lower lobe of lung Qualified Code(s): J18.9 - Pneumonia, unspecified organism Category: Medical Code(s): J18.9 - Pneumonia, unspecified organism (4) Tobacco abuse Status: Acute Category: Medical Code(s): Z72.0 - Tobacco use (5) Obesity (BMI 30-39.9) Status: Acute Category: Medical Code(s): E66.9 - Obesity, unspecified (6) Multiple rib fractures Status: Acute Qualifiers: Encounter type: subsequent encounter Fracture type: closed Laterality: right Fracture healing: with routine healing Qualified Code(s): S22.41XD - Multiple fractures of ribs, right side, subsequent encounter for fracture with routine healing Category: Medical Code(s): S22.49XA - Multiple fractures of ribs, unspecified side, initial encounter for closed fracture (7) Interstitial lung disease Status: Acute Category: Medical Code(s): J84.9 - Interstitial pulmonary disease, unspecified - Assessment and plan all Dx Assessment and Plan for all problems:: #Acute hypoxic respiratory failure: #Interstitial lung disease: 55-year-old anxious prior smoker history of asthma recent diagnosis of COVID-19 at outside hospital presents with worsening respiratory distress. CTA from admission reviewed, no evidence of pulmonary embolism. CT also showed bilateral diffuse interstitial changes with middle and lower lobe predominant ILD along with subpleural honeycombing and lower lobe patchy airspace disease. Patient also noted to have interstitial edema noted. Mediastinal and hilar lymphadenopathy also noted. CRP elevated at 83.7. Etiology is patient acute respiratory failure is multifactorial which include a combination of pneumonia, volume overload and possible NSIP. Interval update: Patient respiratory status remained stable since yesterday. She remains on 6 L nasal cannula. Patient has been receiving prednisone and Bumex however patient is reluctant to take Bumex every day. Nasal MRSA PCR negative. Will discontinue linezolid will initiate ceftriaxone Plan: -Continue nasal cannula oxygen supplementation at 6 L to maintain O2 saturation goal of 88 to 92% -Blood cultures no growth 48 hours. Discontinue linezolid and initiate ceftriaxone with continuation of azithromycin. - Continue prednisone 60mg daily - Bumex Oral 1mg daily.Recommend strict I's and O's. -DuoNebs every 6 hours along with budesonide every 12 scheduled. Combivent every 6 hours as needed. -We will hold off on initiating remdesivir at this point of time. please obtain records from patient's recent outside hospital visit during which she claims to receive remdesivir. #We will repeat the CAT scan outpatient basis to help with the noted lymphadenopathy. Etiology o
--- NOTE | 2021-06-16 09:34 | HMH.ACPN2 ---
Internal Medicine - PN: Subj *Date: 06/16/21 *Time: 15:18 Interval history: 55-year-old female patient sitting up in bed she does report shortness of breath while walking to the bathroom and does become short of breath during conversation. Current oxygenation 6 L per nasal cannula with oxygenation of 91%. Exam Vital signs and Labs for Last 24 Hours: Temp Pulse Resp BP Pulse Ox 98.2 F 90 22 134/77 91 L 06/16/21 08:00 06/16/21 08:00 06/16/21 08:00 06/16/21 08:00 06/16/21 08:00 Laboratory Results - last 24 hr 06/16/21 06:46: Sodium 136, Potassium 4.7, Chloride 93 L, Carbon Dioxide 35 H, Anion Gap 12.7, BUN 13, Creatinine 0.80, Estimated Creat Clear 108, Estimated GFR 74, Est GFR ( Amer) 90, Glucose 390 H, Calcium 8.9, Total Bilirubin 0.4, AST 21, ALT 22, Alkaline Phosphatase 93, Total Protein 6.4, Albumin 3.3 L, Globulin 3.1, Albumin/Globulin Ratio 1.1 I & O for Last 24 hours: Intake & Output 06/13/21 06/14/21 06/15/21 06/16/21 23:59 23:59 23:59 23:59 Intake Total 510 / 510 965 / 965 720 / 720 720 / 720 Balance 510 / 510 965 / 965 720 / 720 720 / 720 Weight 195 lb 6 oz 188 lb 189 lb 9 oz Microbiology Reports for the Last 24 Hours: Microbiology 06/10/21 16:16 Blood Blood Culture - Final NO GROWTH AFTER 5 DAYS 06/10/21 16:16 Blood Blood Culture - Final NO GROWTH AFTER 5 DAYS - Constitutional mild distress, obese, chronically ill appearing - *Routine HEENT Exam Head: Present: normocephalic Eye: Present: EOMI ENT: Present: mucous membranes moist - *Routine Neck Exam Present: supple, full ROM. Absent: tracheal deviation - *Routine Respiratory Exam Present: wheezes, crackles. Absent: accessory muscle use - *Routine Cardiovascular Exam Present: RRR - *Routine Abdominal Exam Present: soft, normoactive bowel sounds. Absent: distended, firm - *Routine Extremities Exam Present: full ROM, pulses intact. Absent: cyanosis, clubbing, calf tenderness - *Routine Skin Exam Present: intact, dry. Absent: cyanosis, erythema - *Routine Neurological Exam Present: alert, oriented X3. Absent: motor deficit - Routine Psychiatric Exam Present: normal affect, normal thought process. Absent: auditory hallucinations Assessment and Plan (1) Acute exacerbation of chronic obstructive airways disease Status: Acute Category: Medical Code(s): J44.1 - Chronic obstructive pulmonary disease with (acute) exacerbation (2) COVID-19 Status: Acute Category: Medical Code(s): U07.1 - COVID-19 (3) Community acquired pneumonia Status: Acute Qualifiers: Laterality: right Lung location: lower lobe of lung Qualified Code(s): J18.9 - Pneumonia, unspecified organism Category: Medical Code(s): J18.9 - Pneumonia, unspecified organism (4) Tobacco abuse Status: Acute Category: Medical Code(s): Z72.0 - Tobacco use (5) Obesity (BMI 30-39.9) Status: Acute Category: Medical Code(s): E66.9 - Obesity, unspecified (6) Multiple rib fractures Status: Acute Qualifiers: Encounter type: subsequent encounter Fracture type: closed Laterality: right Fracture healing: with routine healing Qualified Code(s): S22.41XD - Multiple fractures of ribs, right side, subsequent encounter for fracture with routine healing Category: Medical Code(s): S22.49XA - Multiple fractures of ribs, unspecified side, initial encounter for closed fracture (7) Interstitial lung disease Status: Acute Category: Medical Code(s): J84.9 - Interstitial pulmonary disease, unspecified - Assessment and plan all Dx Assessment and Plan for all problems:: Rounded with Dr. Chiu, all orders per Dr. Chiu: 1. Continue current medical management 2. Wean O2 as tolerated 3. Pulmonology following
--- NOTE | 2021-06-16 10:32 | DIET.NUTRFU ---
Pt PO intake has improved with a 88% average intake for the last 4 meals. Glucose running high at 265, 390. Will continue with current plan and monitor.
--- NOTE | 2021-06-16 18:42 | PC.NURSE ---
pt ambulates with no assist but does get short of breath with exertion, tried to wean oxygen from 6LNC to 4L but whenever pt ambulated had to put oxygen back to 6L and took pt time to recover after exertion, pt sat up in chair most of the shift, pt showered independently this shift, pt with adequate I & O's, VSS, pt resting comfortably in chair
[2021-06-17] VITALS: BP 113/69; PULSE 104; PULSE 105; RESP 19; TEMP 36.6; O2SAT 91
[2021-06-17 00:23] VITALS: PULSE 85; PULSE 86; O2SAT 93
--- NOTE | 2021-06-17 00:28 | PC.NURSE ---
placed sputum cup in pt room, unable to cough up sample at this time.
--- NOTE | 2021-06-17 03:04 | PC.NURSE ---
A&OX4. PT TOLERATING 6LNC, O2 SAT IN LOW 90S. PT HAS HAD NO C/O THUS FAR THIS SHIFT. VSS WILL CONTINUE TO MONITOR.
[2021-06-17 04:00] VITALS: BP 118/75; PULSE 100; PULSE 90; RESP 18; TEMP 36.7; O2SAT 92
[2021-06-17 05:14] VITALS: BMI 38.0
[2021-06-17 06:27] VITALS: PULSE 87; PULSE 89; O2SAT 89
[2021-06-17 08:00] VITALS: BP 127/70; PULSE 100; PULSE 105; RESP 16; TEMP 36.7; O2SAT 90
--- NOTE | 2021-06-17 09:36 | HMH.PULMPN ---
Internal Medicine - PN: Subj *Date: 06/17/21 *Time: 14:22 Interval history: No acute respiratory events overnight. Exam - Constitutional Constitutional:: Present: no acute distress, comfortable - HENMT Exam HENMT: Present: normocephalic, atraumatic - Eye Exam Eyes:: Present: normal appearance both eyes and related structures - Neck Exam Neck:: Present: normal visual inspection - Respiratory Exam Respiratory:: Present: able to speak in complete sentences, no respiratory distress, decreased breath sounds, crackles - Cardiovascular Exam Cardiac:: Present: S1, S2 - GI Exam GI:: Present: soft - Skin Exam Skin: Present: warm, no rash - Neurological Exam Neurological: Present: alert, awake, normal cognition - Extremities Exam Extremities: Present: edema - Psychiatric Exam Psychiatric: Present: normal affect Assessment and Plan (1) Acute exacerbation of chronic obstructive airways disease Status: Acute Category: Medical Code(s): J44.1 - Chronic obstructive pulmonary disease with (acute) exacerbation (2) COVID-19 Status: Acute Category: Medical Code(s): U07.1 - COVID-19 (3) Community acquired pneumonia Status: Acute Qualifiers: Laterality: right Lung location: lower lobe of lung Qualified Code(s): J18.9 - Pneumonia, unspecified organism Category: Medical Code(s): J18.9 - Pneumonia, unspecified organism (4) Tobacco abuse Status: Chronic Category: Medical Code(s): Z72.0 - Tobacco use (5) Obesity (BMI 30-39.9) Status: Chronic Category: Medical Code(s): E66.9 - Obesity, unspecified (6) Multiple rib fractures Status: Chronic Qualifiers: Encounter type: subsequent encounter Fracture type: closed Laterality: right Fracture healing: with routine healing Qualified Code(s): S22.41XD - Multiple fractures of ribs, right side, subsequent encounter for fracture with routine healing Category: Medical Code(s): S22.49XA - Multiple fractures of ribs, unspecified side, initial encounter for closed fracture (7) Interstitial lung disease Status: Chronic Category: Medical Code(s): J84.9 - Interstitial pulmonary disease, unspecified - Assessment and plan all Dx Assessment and Plan for all problems:: #Acute hypoxic respiratory failure: #Interstitial lung disease: 55-year-old anxious prior smoker history of asthma recent diagnosis of COVID-19 at outside hospital presents with worsening respiratory distress. CTA from admission reviewed, no evidence of pulmonary embolism. CT also showed bilateral diffuse interstitial changes with middle and lower lobe predominant ILD along with subpleural honeycombing and lower lobe patchy airspace disease. Patient also noted to have interstitial edema noted. Mediastinal and hilar lymphadenopathy also noted. CRP elevated at 83.7. Etiology is patient acute respiratory failure is multifactorial which include a combination of pneumonia, volume overload and possible NSIP. Interval update: Patient respiratory status remained stable since yesterday. She remains on 6 L nasal cannula. Patient has been receiving prednisone and Bumex however patient is reluctant to take Bumex every day. Nasal MRSA PCR negative. Patient has been noncompliant throughout her hospital stay intermittently refusing medications despite extensive discussions and counseling regarding the deleterious effects of such actions. Patient today requested to be discharged. Plan: -Continue nasal cannula oxygen supplementation at 6 L to maintain O2 saturation goal of 88 to 92% -Blood cultures no growth 48 hours. Nasal MRSA PCR negative, antibiotics change ceftriaxone erythromycin, recommend weaning to levofloxacin on discharge to complete a total of 7-day course. - Continue prednisone 60mg daily, will taper on discharge - Bumex Oral 1mg daily.Recommend strict I's and O's. Patient refusing Bumex 1 mg oral daily and she would only like to take Bumex every other day, consid
--- NOTE | 2021-06-17 09:50 | SW/DCPLANNER ---
Addendum entered by Jenny Heredia 06/17/21 14:34: Per Shayna with [facility] this patient was set up with home O2 last week thru [employer]. Shayna stated they have spoke with the patient and are willing to let patient use their portable devices (already delivered) if they return to [facility]. Shayna has stated that she will speak with family regarding situation. Patient will discharge home today. Addendum entered by Jenny Heredia 06/17/21 10:09: Patsy with [facility] has stated that information/order has been reviewed and [facility] will be delivering portable tank to patients room. Original Note: Patient information/order has been faxed to [facility] for home O2/portable. I will follow up with [facility] once patient information/order is reviewed. Patient will discharge home today.
--- NOTE | 2021-06-17 11:28 | PC.NURSE ---
room air saturation 80%
--- NOTE | 2021-06-17 11:56 | HMH.ACPN2 ---
Internal Medicine - PN: Subj *Date: 06/17/21 *Time: 11:56 Exam Vital signs and Labs for Last 24 Hours: Temp Pulse Resp BP Pulse Ox 98.1 F 105 H 16 127/70 90 L 06/17/21 08:00 06/17/21 08:00 06/17/21 08:00 06/17/21 08:00 06/17/21 08:00 I & O for Last 24 hours: Intake & Output 06/14/21 06/15/21 06/16/21 06/17/21 23:59 23:59 23:59 23:59 Intake Total 965 / 965 720 / 720 1800 / 1800 1240 / 1240 Output Total 2 / 2 Balance 965 / 965 720 / 720 1798 / 1798 1240 / 1240 Weight 188 lb 189 lb 9 oz 189 lb Microbiology Reports for the Last 24 Hours: Microbiology 06/14/21 23:02 Nose - Nasal MRSA Culture - Final Negative Assessment and Plan (1) Acute exacerbation of chronic obstructive airways disease Status: Acute Category: Medical Code(s): J44.1 - Chronic obstructive pulmonary disease with (acute) exacerbation (2) COVID-19 Status: Acute Category: Medical Code(s): U07.1 - COVID-19 (3) Community acquired pneumonia Status: Acute Qualifiers: Laterality: right Lung location: lower lobe of lung Qualified Code(s): J18.9 - Pneumonia, unspecified organism Category: Medical Code(s): J18.9 - Pneumonia, unspecified organism (4) Tobacco abuse Status: Acute Category: Medical Code(s): Z72.0 - Tobacco use (5) Obesity (BMI 30-39.9) Status: Acute Category: Medical Code(s): E66.9 - Obesity, unspecified (6) Multiple rib fractures Status: Acute Qualifiers: Encounter type: subsequent encounter Fracture type: closed Laterality: right Fracture healing: with routine healing Qualified Code(s): S22.41XD - Multiple fractures of ribs, right side, subsequent encounter for fracture with routine healing Category: Medical Code(s): S22.49XA - Multiple fractures of ribs, unspecified side, initial encounter for closed fracture (7) Interstitial lung disease Status: Acute Category: Medical Code(s): J84.9 - Interstitial pulmonary disease, unspecified
[2021-06-17 12:00] VITALS: BP 132/80; PULSE 85; RESP 20; TEMP 36.6; O2SAT 88
--- NOTE | 2021-06-17 12:42 | HMH.DCSUM ---
General - General Admission date:: 06/10/21 Discharge date: 06/17/21 HPI HPI: 55-year-old female presented to the emergency department with some difficulty breathing. Patient was recently diagnosed with Covid approximately 2 weeks ago. Patient was admitted to outlying facility. pt states she was discharged with supplemental oxygen. Patient states that she has been declining over the last few weeks, states that she is having worsening difficulty breathing. She went to see her primary care physician today and she was found to be hypoxic. Pt admitted for covid pneumonia failed out pt therapy. for pulm consult,o2 and monitoring. Hospital Course Hospital Course: Pt was admitted from the ER after being seen in the office for cough and dyspnea. She had been previously discharged from [facility] for covid pneumonia. Here she received azithromycin/rocephin/prednisone Etiology of dyspnea thought to be multi-factoral, combination of pneumonia/volume overload/interstitial disease CTA showed adenopathy and interstitial changes. Differential diagnosis includes NSIP. Repeat CT and pulmonary follow up planned after discharge. Pt refused high flow oxygen and several doses of diuretics while here. Objective Vital signs: Temp Pulse Resp BP Pulse Ox 98.1 F 105 H 16 127/70 90 L 06/17/21 08:00 06/17/21 08:00 06/17/21 08:00 06/17/21 08:00 06/17/21 08:00 no acute distress - *Routine HEENT Exam Head: Present: normocephalic Eye: Present: EOMI, PERRL ENT: Present: mucous membranes moist - *Routine Neck Exam Present: supple - *Routine Respiratory Exam Present: rhonchi, crackles. Absent: accessory muscle use - *Routine Cardiovascular Exam Present: RRR - *Routine Abdominal Exam Present: soft, normoactive bowel sounds. Absent: tenderness - *Routine Extremities Exam Absent: cyanosis, clubbing - *Routine Skin Exam Present: warm. Absent: rash DS: Diagnosis - Discharge Diagnosis (1) Acute exacerbation of chronic obstructive airways disease Status: Acute (2) COVID-19 Status: Acute (3) Community acquired pneumonia Status: Acute (4) Tobacco abuse Status: Chronic (5) Obesity (BMI 30-39.9) Status: Chronic (6) Multiple rib fractures Status: Chronic (7) Interstitial lung disease Status: Chronic Discharge Plan - Patient Discharge Instructions ACTIVITY: Ambulate as tolerated DIET: continue same diet Patient Instructions: DI for Pneumonia -- Adult, DI for Acute Bronchitis, DI for Respiratory Failure, DI for COVID-19 (Suspected or Confirmed ), Nutrition and Hydration: [employer] in the Fight Against COVID-19 - Follow up Plan Follow up with: Selma Mayes MD [Physician] - 1 month Vargas Hernandez MD [Primary Care Provider] - 2 weeks Disposition: Home, Self-Care Condition at discharge:: Improved Home Medications: Home Medications Medication Instructions Recorded Confirmed Type ipratropium 0.5 mg-albuterol 3 mg 3 ml INHALATION TID PRN #90 neb 02/26/21 06/10/21 Rx (2.5 mg base)/3 mL nebulization soln ergocalciferol (vitamin D2) 1,250 5,000 unit PO DAILY cap 06/03/21 06/11/21 History mcg (50,000 unit) capsule mometasone-formoterol HFA 200 2 puff INHALATION BID 06/03/21 06/10/21 History mcg-5 mcg/actuation aerosol inhaler montelukast 10 mg tablet 10 mg PO DAILY #90 tab 06/03/21 06/10/21 Rx Azelastine HCl [Azelastine Nasal 2 spray INTRANASAL BID 06/10/21 06/10/21 History [place] 30mL Bottle] Baclofen [Lioresal 10mg tablet] 10 mg PO BID 06/10/21 06/11/21 History Furosemide [Furosemide 20mg Tab*] 20 mg PO DAILY 06/10/21 06/10/21 History Pantoprazole Sodium 40 mg PO DAILY 06/10/21 06/10/21 History ALPRAZolam [Alprazolam Xr] 0.5 mg PO BID 06/11/21 06/10/21 History Albuterol Sulfate [Proventil Hfa] 1 inh INHALATION QIDP PRN 06/11/21 06/11/21 History dilTIAZem HCL [Diltiazem ER] 120 mg PO DAILY 06/11/21 06/11/21 History Bumetanide [Bumex 1mg tablet] 1 mg P
== END 2021-06-17 15:25 | disposition home or self-care (01) | DRG 177 ==
LOC: ER 19:40 → 2ND 19:44
PROVIDERS: Emergency Medicine; Internal Medicine Pulmonary Disease; Nurse Practitioner Family; Admitting Provider Internal Medicine Adolescent Medicine; Emergency Provider Emergency Medicine; PCP Family Medicine; Visit Provider Family Medicine
DX: U07.1 COVID-19 (principal); J12.82 Pneumonia due to coronavirus disease 2019; J96.21 Acute and chronic respiratory failure with hypoxia; J84.9 Interstitial pulmonary disease, unspecified; J44.9 Chronic obstructive pulmonary disease, unspecified; I10 Essential (primary) hypertension; S22.41XD Multiple fractures of ribs, right side, subsequent encounter for fracture with routine healing; Z79.899 Other long term (current) drug therapy; Z79.51 Long term (current) use of inhaled steroids; Z87.891 Personal history of nicotine dependence
CPT/HCPCS: 36415; 71045; 71275; 80048; 80053; 80202; 81001; 83605; 83880; 84484; 85025; 85610; 85730; 86140; 87040; 87081; 87205; 93306; 94640; 94760; 94761; 96365; 96375; 99285; C9803; J3370; Q9967; U0003; U0005

== ENCOUNTER → 2022-03-28 08:14 | Outpatient (CLI) | payer OTHER, SELFPAY ==
[2022-03-25 18:38] LABS: Basophils # 0.1 K/mm3 (0-0.2); Eosinophils # 0.2 K/mm3 (0.0-0.4); Eosinophils % 1.3 % (0.1-12.0); Hematocrit 54.9 % (37.0-47.0); Hemoglobin 16.8 g/dL (12.2-16.2); Lymphocytes # 2.1 K/mm3 (0.7-4.5); Lymphocytes % 18.2 % (10-50); Mean Corpuscular HGB Conc 30.7 g/dL (31.8-35.4); Mean Corpuscular Hemoglobin 27.4 pg (27.0-31.2); Mean Corpuscular Volume 89.3 fl (81-99); Mean Platelet Volume 8.9 fl (7.4-10.4); Monocytes # 0.8 K/mm3 (0.1-1.0); Monocytes % 6.6 % (1.7-9.3); Neutrophils # 8.6 K/mm3 (1.8-7.8); Neutrophils % 72.9 % (37.0-80.0); Platelet Count 398 K/mm3 (142-424); Red Blood Count 6.15 M/mm3 (4.20-5.40); White Blood Count 11.7 K/mm3 (4.8-10.8)
[2022-03-25 18:53] LABS: Alanine Aminotransferase 17 U/L (12-78); Albumin Level 4.2 g/dl (3.5-5.0); Albumin/Globulin Ratio 1.4 (1.1-1.8); Alkaline Phosphatase 109 U/L (38-126); Anion Gap 15.1 mEq/L (5-15); Aspartate Amino Transferase 24 U/L (14-36); Blood Urea Nitrogen 12 mg/dl (7-17); Carbon Dioxide 23 mmol/L (22.0-30.0); Chloride 109 mmol/L (98-107); Chol/HDL Ratio 3.2 (1-3.5); Cholesterol 184 mg/dl (140-200); Estimated Glomerular Filt Rate 65 ml/min (>60); GFR (African American) 78 ML/MIN (>60); Glucose 126 mg/dl (74-100); HDL Cholesterol 58 mg/dl (40-60); Potassium 4.1 mmoL/L (3.5-5.1); Sodium 143 mmol/L (136-145); Total Protein,Serum 7.2 g/dl (6.3-8.2); Triglycerides 98 mg/dl (30-150); VLDL Cholesterol 20 mg/dL (0-40)
[2022-03-25 19:05] LABS: Direct LDL Cholesterol 92.82 mg/dL (100-129)
[2022-03-25 19:24] LABS: Thyroid Stimulating Hormone 1.22 uIU/mL (0.465-4.68)
[2022-03-25 20:30] LABS: Hemoglobin A1C 7.6 % (4.0-6.0)
== END ==
PROVIDERS: Visit Provider Family Medicine
DX: J96.91 Respiratory failure, unspecified with hypoxia (principal); J44.1 Chronic obstructive pulmonary disease with (acute) exacerbation; J84.9 Interstitial pulmonary disease, unspecified; Z79.899 Other long term (current) drug therapy
CPT/HCPCS: 80053; 80061; 83036; 84443; 85025

== ENCOUNTER 2024-05-10 11:58 | Outpatient (CLI) | payer OTHER, SELFPAY ==
[2024-05-10 18:19] LABS: Basophils # 0.1 K/mm3 (0-0.2); Basophils % 0.7 % (0.1-2.0); Eosinophils # 0.1 K/mm3 (0.0-0.4); Eosinophils % 0.8 % (0.1-12.0); Hematocrit 50.8 % (37.0-47.0); Hemoglobin 16.2 g/dL (12.2-16.2); Lymphocytes # 2.3 K/mm3 (0.7-4.5); Mean Corpuscular HGB Conc 31.9 g/dL (31.8-35.4); Mean Corpuscular Hemoglobin 30.5 pg (27.0-31.2); Mean Corpuscular Volume 95.6 fl (81-99); Monocytes # 0.7 K/mm3 (0.1-1.0); Monocytes % 4.5 % (1.7-9.3); Neutrophils # 12.3 K/mm3 (1.8-7.8); Neutrophils % 78.9 % (37.0-80.0); Platelet Count 412 K/mm3 (142-424); Red Blood Count 5.31 M/mm3 (4.20-5.40); Red Cell Distribution Width 14.5 % (11.5-17.5); White Blood Count 15.6 K/mm3 (4.8-10.8)
[2024-05-10 18:22] LABS: MANUAL DIFFERENTIAL MANUAL DIFFERENTIAL (MANUAL DIFF)
[2024-05-10 18:28] LABS: Alanine Aminotransferase 19 U/L (12-78); Albumin Level 4.3 g/dl (3.5-5.0); Albumin/Globulin Ratio 1.3 (1.1-1.8); Alkaline Phosphatase 78 U/L (38-126); Anion Gap 12.8 mEq/L (5-15); Aspartate Amino Transferase 26 U/L (14-36); Bilirubin,Total 1.3 mg/dl (0.2-1.3); Blood Urea Nitrogen 16 mg/dl (7-17); Calcium 9.5 mg/dl (8.4-10.2); Carbon Dioxide 34 mmol/L (22.0-30.0); Chloride 98 mmol/L (98-107); Chol/HDL Ratio 3.1 (1-3.5); Cholesterol 171 mg/dl (140-200); Estimated Glomerular Filt Rate 86 ml/min (>60); GFR (African American) 104 ML/MIN (>60); Globulin 3.4 g/dL (1.3-3.2); Glucose 90 mg/dl (74-100); HDL Cholesterol 55 mg/dl (40-60); Potassium 4.8 mmoL/L (3.5-5.1); Sodium 140 mmol/L (136-145); Total Protein,Serum 7.7 g/dl (6.3-8.2); Triglycerides 118 mg/dl (30-150); VLDL Cholesterol 24 mg/dL (0-40)
[2024-05-10 18:39] LABS: Direct LDL Cholesterol 76.37 mg/dL (100-129)
[2024-05-10 18:57] LABS: Lymphocytes % 17 % (10-50); Monocytes % 6 % (2-9); Neutrophils % 77 % (42-76); Platelet Estimate Normal; RBC Morphology Normal; Total Cells Counted 100
[2024-05-10 19:00] LABS: Hemoglobin A1C 6.1 % (4.0-6.0)
[2024-05-10 19:00] LABS: Thyroid Stimulating Hormone 0.99 uIU/mL (0.465-4.68)
[2024-05-10 19:19] LABS: Vitamin B12 481 pg/mL (239-931)
[2024-05-12 09:08] LABS: Estradiol 6.3 pg/mL (.); FSH 83.6 mIU/mL (.)
[2024-05-20 14:22] LABS: 1,25 Dihydroxy Vitamin D 90 pg/mL (.); 1,25-Dihydroxy, Vitamin D-2 67 pg/mL (.); 1,25-Dihydroxy, Vitamin D-3 23 pg/mL (.)
== END 2024-05-10 23:59 | disposition home or self-care (01) ==
LOC: LAB.DROPOF 05-13 11:59
PROVIDERS: PCP Family Medicine; Visit Provider Family Medicine
DX: I10 Essential (primary) hypertension (principal); E66.9 Obesity, unspecified; Z68.35 Body mass index [BMI] 35.0-35.9, adult; F17.210 Nicotine dependence, cigarettes, uncomplicated
CPT/HCPCS: 80050; 80053; 80061; 82607; 82652; 82670; 83001; 83036; 84443; 85007; 85025

== ENCOUNTER 2025-07-25 09:59 | Outpatient (CLI) | payer OTHER, SELFPAY ==
--- OUTSIDE RECORDS SUMMARY | 2025-06-05 09:45 | XMS_ITS | Encounter Summary ---
Author Organization [place] [address] Care Team Providers Care Field Account Manager Name Role Phone Vargas Hernandez MD Primary Care Provider [phone] Reason for Referral * Medication Prior Authorization - Authorized Specialty Diagnoses / Procedures Referred By Deilsa t Referred To Contact Diagnoses COPD, group E, by GOLD 2022 classification ([facility]) Asim Helm MD [address] [place] [address] Phone: tel: fax: Referral ID Status Reason Start Date Expiration Date V isits Requested Visits Authorized [id number] Authorized 06/05/2025 06/04/2026 1 1 * PFT (Routine) - Pending Review Specialty Diagnoses / Procedures Referred By Conttrevor t Referred To Contact Diagnoses COPD, group E, by GOLD 2022 classification ([facility]) Procedures PULMONARY FUNCTION TEST Asim Helm MD [address] [place] [address] Phone: tel: fax: Referral ID Status Reason Start Date Expiration Date V isits Requested Visits Authorized [id number] Pending Review 06/05/2025 06/05/2026 1 1 * Genetic Lab Test (Routine) - Pending Review Specialty Diagnoses / Procedures Referred By Contac t Referred To Contact Diagnoses COPD, group E, by GOLD 2022 classification (HCC) Procedures ALPHA-1 ANTITRYPSIN MUT ANALYSIS-REF LAB Asim Helm MD [address] [place] [address] Phone: tel: fax: Referral ID Status Reason Start Date Expiration Date V isits Requested Visits Authorized [id number] Pending Review 06/05/2025 06/05/2026 1 1 Reason for Visit * Reason Comments Follow-up Encounter Details Date Type Department Care Team (Latest Contact Info) Description 06/05/2025 10:45 AM EDT Office Visit [facility] [address] [id number] Asim Helm MD [address] [place] [address] COPD, group E, by GOLD 2022 classification (HCC) (Primary Dx); Centrilobular emphysema (HCC); Chronic hypoxic respiratory failure (HCC); Pulmonary hypertension (HCC) Social History Tobacco Use Types Packs/Day Years Used Date Smoking Tobacco: Former Cigarettes 1.5 44 0 09/25/1973 - 09/26/2017 Smokeless Tobacco: Never Tobacco Cessation:Counseling Given: Not Answered Alcohol Use Standard Drinks/Week Comments Not Currently 0 (1 standard drink = 0.6 oz pur e alcohol) AUDIT-C Answer Date Recorded Q1: How often do you have a drink containing alc ohol? Never 05/05/2021 Average Number of Drinks Not on file 021 Q3: How often do you have si x or more drinks on one occasion? Never 05/05/2021 Overall Financial Resource Strain (CARDIA) Answe r Date Recorded How hard is it for you to pa y for the very basics like food, housing, medical care, and heating? Somewhat hard 02/09/2022 [employer] - Occupational Stress Questionnaire Answer Date Recorded Feeling of Stress Rather much 04/14/2020 Exercise Vital Sign Answer Date Recorde d Days of Exercise per Week 0 days 2019 Minutes of Exercise per Session 0 min 04/14/2020 Hunger Vital Sign Answer Date Recorded Within the past 12 months, y ou worried that your food would run out before you got the money to buy more. Sometimes true Within the past 12 months, t he food you bought just didn't last and you didn't have money to get more. Sometimes true PRAPARE - Transportation Answer Date Re corded In the past 12 months, has l ack of transportation kept you from medical appointments or from getting medications? No 08/25 In the past 12 months, has l ack of transportation kept you from meetings, work, or from getting things needed for daily living? No 09/09/2022 Comments No Sex and Gender Information Value Date Recorded Sex Assigned at Not on file Legal Sex Female 8:58 PM EDT Gender Identity Not on file Sexual Orientation Not on file documented as of this encounter Last Filed Vital Signs Vital Sign Reading Time Taken Comments Blood Pressure 130/80 06/05/2025 10:41 AM EDT Pulse 54 06/05/2025 10:41 AM EDT Temperature - - Respiratory Rate - - Oxygen Saturation 76% 06/05/2025 10:41 AM EDT 8l@rest Inhaled Oxygen Concentration - - Weight 80.3 kg (177 lb) 06/05/2025 10:41 AM EDT Height 149.9 cm (4' 11 ) 06/05/2025 10:41 AM EDT Body Mass Index 35.75 06/05/2025 10:41 AM EDT documented in this encounter Functional Status * Is the person deaf or does he/she have serious difficulty hearing? Answer Date of Assessment Author No 09/15/2022 4:33 PM Chauncey Lorenzana RN * Is the person blind or does he/she have serious difficulty seeing even when wearing glasses? Answer Date of Assessment Author No 09/15/2022 4:33 PM Chauncey Lorenzana RN * Does this person have serious difficulty walking or climbing stairs? Answer Date of Assessment Author Yes 09/15/2022 4:33 PM Chauncey Lorenzana RN * Does this person have difficulty dressing or bathing? Answer Date of Assessment Author Yes 09/15/2022 4:33 PM Chauncey Lorenzana, [place] * Because of a physical, mental or emotional condition, does this person have difficulty doing errands alone such as visiting a doctor's office or shopping? Answer Date of Assessment Author Yes 09/15/2022 4:33 PM Chauncey Lorenzana RN documented as of this encounter Mental Status * Because of a physical, mental or emotional condition, does this person have serious difficulty concentrating, remembering or making decisions? Answer Entry Date Author Yes 09/15/2022 4:33 PM Chauncey Lorenzana RN documented in this encounter Ordered Prescriptions Prescription Sig Dispense Quantity Refills Last Filled Start Date End Date VENTOLIN HFA 90 mcg/actuation Inhl HFA Aerosol InhalerIndications:C OPD, group E, by GOLD 202 classification ([facility]) Inhale 1-2 Puffs into the lungs every 4 hours as needed for Wheezing or Shortness of Breath. 18 g 11 06/05/2025 budesonide-glycopyr- formoterol (BREZTRI AEROSPHERE) 160-9-4.8 mcg/actuation Inhl HFA Aerosol InhalerIndications:C OPD, group E, by GOLD 2023 classification ([facility]) Inhale 2 Puffs into the lungs 2 times daily. 10.7 g 5 06/05/2025 documented in this encounter Progress Notes * Asim Helm MD - 06/05/2025 10:45 AM EDTAssociated Problem(s): COPD, group E, by GOLD 2023 classification ([facility]) Possibly could have COPD with overlap asthma Reviewed the patient's past records. Reviewed with patient past CT chest imaging, PFT which is consistent with severe COPD with emphysema. Provided extensive education and counseling regarding natural history of emphysema and potential implications of chronic hypoxia, pulmonary hypertension etc. Answered several questions by patient. recommended alpha-1 antitrypsin phenotyping. Start Breztri 2 puffs twice daily. Reassured the patient about its use, possible adverse effects. Continue albuterol as needed. Recommend PFT to evaluate for any worsening from before. Orders: ALPHA-1 ANTITRYPSIN MUT ANALYSIS-REF LAB; Future PULMONARY FUNCTION TEST; Future cmiefjtfvi-rcskuknq-vxmgrembyz (BREZTRI AEROSPHERE) 160-9-4.8 mcg/actuation Inhl HFA Aerosol Inhaler; Inhale 2 Puffs into the lungs 2 times daily. VENTOLIN HFA 90 mcg/actuation Inhl HFA Aerosol Inhaler; Inhale 1-2 Puffs into the lungs every 4 hours as needed for Wheezing or Shortness of Breath. * Asim Helm MD - 06/05/2025 10:45 AM EDTAssociated Problem(s): Centrilobular emphysema (HCC) Possibly could have COPD with overlap asthma Reviewed the patient's past records. Reviewed with patient past CT chest imaging, PFT which is consistent with severe COPD with emphysema. Provided extensive education and counseling regarding natural history of emphysema and potential implications of chronic hypoxia, pulmonary hypertension etc. Answered several questions by patient. recommended alpha-1 antitrypsin phenotyping. Start Breztri 2 puffs twice daily. Reassured the patient about its use, possible adverse effects. Continue albuterol as needed. Recommend PFT to evaluate for any worsening from before. Orders: ALPHA-1 ANTITRYPSIN MUT ANALYSIS-REF LAB; Future PULMONARY FUNCTION TEST; Future ntcupynuml-itawfjlh-odnpgzahnw (BREZTRI AEROSPHERE) 160-9-4.8 mcg/actuation Inhl HFA Aerosol Inhaler; Inhale 2 Puffs into the lungs 2 times daily. VENTOLIN HFA 90 mcg/actuation Inhl HFA Aerosol Inhaler; Inhale 1-2 Puffs into the lungs every 4 hours as needed for Wheezing or Shortness of Breath. * Asim Helm MD - 06/05/2025 10:45 AM EDTAssociated Problem(s): Chronic hypoxic respiratory failure (HCC) Secondary to emphysema and COPD. Continue 4 L of oxygen with rest exertion at night. Recommended use of humidifier. Also recommendedto use oxygen cannula via the nose. 4 L allowed oxygen saturation to stay at 91 to 95% at rest during her clinic visit with us. * Asim Helm MD - 06/05/2025 10:45 AM EDTAssociated Problem(s): Pulmonary hypertension (HCC) Group 3 secondary to severe COPD, emphysema and chronic hypoxia. Appears to have improved based on previous NT-proBNP. Continue same management. documented in this encounter H&P Notes * Asim Helm MD - 06/05/2025 10:45 AM EDT Images from the original note were not included. Primary Care Physician:Vargas Hernandez MD Referring Provider: No ref. provider found Chief Complaint Patient presents with Follow-up History of Present Illness: Nora Simmons is a 59 y.o. female, who presents for evaluation and treatment of COPD with emphysema, chronic hypoxic respiratory failure, secondary pulmonary hypertension. Patient previously followed up with Dr. Fernandez and Dr. Monroy and was lost to follow-up. Patient complains of shortness of breath NYHA class II with exertion. Denies any edema of the legs.Has cough with mild mucoid sputum. Has allergies to pollen trees etc. Patient denies any fevers chills. No hemoptysis. No weight loss. Patient uses 4 L of oxygen with rest exertion at night. Patient puts oxygen cannula in her mouth asshe states that she does not feel air coming through her nose due to her deviated nasal septum. Patient previously had right heart catheterization done for pulmonary hypertension by Dr. Klein at [facility]. This was done in 2022. At that time, patient did have pulm hypertension but wedge pressure was 25 suspected secondary pulm hypertension. She was followed by Dr. Monroy at the time. COPD management was recommended. There was improvement of NT-proBNP from 6000 to 200 with long-term oxygen therapy. Significant family history of COPD. Patient was prescribed Breztri by Dr. Monroy. However, patient did not start the medication as she read the label on the medication which she interpreted as the inhaler not suitable for COPD asthmaor hypertension. She has been using albuterol 4-6 times a day. Past Medical History: Diagnosis Date Anxiety Asthma Kenny esophagus Fibromyalgia Glaucoma Hypertension Pneumonia Post-operative nausea and vomiting Shortness of breath Past Surgical History: Procedure Laterality Date DENTAL SURGERY EYE SURGERY FINGER TRIGGER RELEASE POLYPECTOMY SHOULDER SURGERY TUBAL LIGATION Social History Socioeconomic History Marital status: Spouse name: Not on file Number of children: Not on file Years of education: Not on file Highest education level: Not on file Occupational History Not on file Tobacco Use Smoking status: Former Current packs/day: 0.00 Average packs/day: 1.5 packs/day for 44.0 years (66.0 ttl pk-yrs) Types: Cigarettes Start date: 09/25/1973 Quit date: 09/26/2017 Years since quittin.6 Smokeless tobacco: Never Vaping Use Vaping status: Never Used Substance and Sexual Activity Alcohol use: Not Currently Drug use: Yes Types: Marijuana Comment: daily smoker Sexual activity: Not on file Other Topics Concern Not on file Social History Narrative Not on file Social Drivers of Health Financial Resource Strain: Medium Risk (02/09/2022) Overall Financial Resource Strain (CARDIA) Difficulty of Paying Living Expenses: Somewhat hard Food Insecurity: Food Insecurity Present (09/09/2022) Hunger Vital Sign Worried About Running Out of Food in the Last Year: Sometimes true Ran Out of Food in the Last Year: Sometimes true Transportation Needs: No Transportation Needs (09/09/2022) PRAPARE - Transportation Lack of Transportation (Medical): No Lack of Transportation (Non-Medical): No Physical Activity: Inactive (04/14/2020) Exercise Vital Sign Days of Exercise per Week: 0 days Minutes of Exercise per Session: 0 min Stress: Stress Concern Present (04/14/2020) [employer] - Occupational Stress Questionnaire Feeling of Stress : Rather much Social Connections: Unknown (07/03/2023) Received from [facility] Family and Community Support Help with Day-to-Day Activities: Not on file Lonely or Isolated: Not on file Intimate Partner Violence: Unknown (07/03/2023) Received from [facility] Abuse Screen Unsafe at Home or Work/School: Not on file Feels Threatened by Someone?: Not on file Does Anyone Keep You from Contacting Others or Doint Things Outside the Home?: Not on file Physical Sign of Abuse Present: Not on file Housing Stability: Unknown (07/03/2023) Received from [facility] Housing Stability Current Living Arrangements: Not on file Potentially Unsafe Housing Conditions: Not on file History reviewed. No pertinent family history. Allergies: Augmentin [amoxicillin-pot clavulanate], Codeine, Ketorolac tromethamine, Metronidazole,Norvasc [amlodipine], Clarithromycin, and Lisinopril Current Outpatient Medications on File Prior to Visit Medication Sig Dispense Refill ALPRAZolam (XANAX) 1 mg Oral Tablet Take 1 mg by mouth daily as needed. Indications: anxious baclofen (LIORESAL) 10 mg Oral Tablet Take 10 mg by mouth 2 times daily. benzonatate (TESSALON) 100 mg Oral Capsule fUROsemide (LASIX) 40 mg Oral Tablet nystatin (MYCOSTATIN) Top Powder APPLY POWDER TOPICALLY TO AFFECTED AREA TWICE DAILY Oxygen and Equipment MISCELLANEOU 1Use as directed. 1 Each 0 Oxygen and Equipment MISCELLANEOU 4 Liters of oxygen via nasal canula continuous concentrator, portables and with conserving device Life time 99 months dx code copd j44.9 1 Each 0 pantoprazole (PROTONIX) 40 mg Oral Tablet, Delayed Release (E.C.) Take 1 Tablet by mouth daily. 30 Tablet 0 spironolactone (ALDACTONE) 25 mg Oral Tablet Take 1 Tablet by mouth 2 times daily. 120 Tablet 11 No current facility-administered medications on file prior to visit. Current Outpatient Medications: ALPRAZolam (XANAX) 1 mg Oral Tablet, Take 1 mg by mouth daily as needed. Indications: anxious, Disp: , Rfl: baclofen (LIORESAL) 10 mg Oral Tablet, Take 10 mg by mouth 2 times daily., Disp: , Rfl: benzonatate (TESSALON) 100 mg Oral Capsule, , Disp: , Rfl: clxmbwsskf-rnbvkkqs-kiehtbnpnn (BREZTRI AEROSPHERE) 160-9-4.8 mcg/actuation Inhl HFA Aerosol Inhaler, Inhale 2 Puffs into the lungs 2 times daily., Disp: 10.7 g, Rfl: 5 fUROsemide (LASIX) 40 mg Oral Tablet, , Disp: , Rfl: nystatin (MYCOSTATIN) Top Powder, APPLY POWDER TOPICALLY TO AFFECTED AREA TWICE DAILY, Disp: , Rfl: Oxygen and Equipment MISCELLANEOU, 1Use as directed., Disp: 1 Each, Rfl: 0 Oxygen and Equipment MISCELLANEOU, 4 Liters of oxygen via nasal canula continuous concentrator, portables and with conserving device Life time 99 months dx code copd j44.9, Disp: 1 Each, Rfl: 0 pantoprazole (PROTONIX) 40 mg Oral Tablet, Delayed Release (E.C.), Take 1 Tablet by mouth daily., Disp: 30 Tablet, Rfl: 0 spironolactone (ALDACTONE) 25 mg Oral Tablet, Take 1 Tablet by mouth 2 times daily., Disp: 120 Tablet, Rfl: 11 VENTOLIN HFA 90 mcg/actuation Inhl HFA Aerosol Inhaler, Inhale 1-2 Puffs into the lungs every 4 hours as needed for Wheezing or Shortness of Breath., Disp: 18 g, Rfl: 11 Oxygen and Equipment MISCELLANEOU, Use as directed., Disp: 1 Each, Rfl: 0 There is no immunization history on file for this patient. Review of Systems Constitutional: Positive for fatigue. Negative for fever. HENT: Negative for postnasal drip, rhinorrhea and sore throat. Eyes: Negative for photophobia, discharge and redness. Respiratory: Positive for cough and shortness of breath. Negative for chest tightness and wheezing. Cardiovascular: Negative for chest pain and leg swelling. Gastrointestinal: Negative for abdominal pain, nausea and vomiting. Allergic/Immunologic: Positive for environmental allergies. BP 130/80 (BP Location: Left arm, Patient Position: Sitting) Pulse 54 Ht 4' 11 (1.499 m) Wt 177 lb (80.3 kg) SpO2 (!) 76% Comment: 8l@rest No BMI 35.75 kg/m?? Physical Exam Vitals reviewed. Constitutional: General: She is not in acute distress. Appearance: She is obese. She is not ill-appearing. HENT: Head: Normocephalic and atraumatic. Right Ear: External ear normal. Left Ear: External ear normal. Nose: Nose normal. No congestion. Mouth/Throat: Pharynx: Oropharynx is clear. Eyes: General: Right eye: No discharge. Left eye: No discharge. Extraocular Movements: Extraocular movements intact. Conjunctiva/sclera: Conjunctivae normal. Pupils: Pupils are equal, round, and reactive to light. Cardiovascular: Rate and Rhythm: Normal rate and regular rhythm. Pulses: Normal pulses. Heart sounds: Normal heart sounds. Pulmonary: Effort: Pulmonary effort is normal. No respiratory distress. Breath sounds: No wheezing. Comments: Decreased breath sounds bilaterally Abdominal: Palpations: Abdomen is soft. Tenderness: There is no abdominal tenderness. Comments: Limited exam due to obesity Musculoskeletal: General: No swelling. Skin: General: Skin is warm. Neurological: General: No focal deficit present. Mental Status: She is alert and oriented to person, place, and time. Psychiatric: Mood and Affect: Mood normal. Behavior: Behavior normal. LAB RESULTS No results found for: WBC , HGB , HCT , PLT No results found for: NA , K , CO2 , CL , BUN , CREATININE , GLU No results found for this visit on 06/05/25 (from the past 2 weeks). PULMONARY FUNCTION TESTING Results for orders placed or performed during the hospital encounter of 09/06/23 PULMONARY FUNCTION TEST Result Value FVC_POST 1.97 (L) FVC_PRE 1.57 (L) FVC_REF 2.69 FVC_LLN 2.05 FVC_Pre%REF 58 FVC_Post%REF 73 FVC_%Chng 26 FEV1_POST 0.83 (L) FEV1_PRE 0.72 (L) FEV1_REF 2.15 FEV1_LLN 1.64 FEV1_Pre%REF 34 FEV1_Post%REF 38 FEV1_%Chng 14 FEV1/FVC_POST 41.91 (L) FEV1/FVC_PRE 46.03 (L) FEV1/FVC_REF 80 FEV1/FVC_LLN 68 FEV1/FVC_Pre%REF 57 FEV1/FVC_Post%REF 52 FEV1/FVC_%Chng -9 NFT33-27%_REF 2.11 JCK04-67%_LLN 1.10 UAB84-58%_Pre%REF 13 XRD34-61%_Post%REF 14 SLB06-09%_%Chng 2 PEF_POST 2.38 (L) PEF_PRE 1.78 (L) PEF_REF 5.66 PEF_LLN 4.21 PEF_Pre%REF 31 PEF_Post%REF 42 PEF_%Chng 34 DLCO_SB_PRE 1.26 (L) DLCOSingleBreath_REF 17.1 DLCOSingleBreath_LLN 13.0 DLCOSingleBreath_Pre%REF 22 VA_SB_PRE 3.00 (L) VASingleBreath_REF 3.88 VASingleBreath_LLN 3.13 VASingleBreath_Pre%REF 77 DLCO/VA_REF 4.43 DLCO/VA_LLN 3.42 DLCO/VA_Pre%REF 28 Hb_PRE 11.00 IC_PRE 1.23 (L) IC_REF 1.54 IC_LLN 1.54 IC_Pre%REF 80 ERV_PRE 0.34 (L) ERV_REF 0.77 ERV_LLN 0.77 ERV_Pre%REF 43 RV_PRE 4.16 (H) RV_REF 1.64 RV_LLN 1.06 RV_Pre%REF 254 RV%TLC_PRE 72.63 (H) RV%TLC_REF 39 RV%TLC_LLN 29 RV%TLC_Pre%REF 188 FRCpl_PRE 4.50 (H) FRCpleth_REF 2.41 FRCpleth_LLN 1.59 FRCpleth_Pre%REF 186 TLC_PRE 5.73 (H) TLC_REF 4.10 TLC_LLN 3.11 TLC_Pre%REF 140 Impression Severe obstruction with response to bronchodilators No restriction Air trapping Reduced diffusion Rajeev Younger MD [facility] No results found for: FEV1 , FVC , QXX0XIH , TLC , DLCO 2D ECHOCARDIOGRAM Results for orders placed during the hospital encounter of 09/08/22 EC ECHOCARDIOGRAM COMPLETE W DOPPLER AND COLOR FLOW MAPPING Impression Conclusions * Left ventricular chamber dimension is normal. * There is moderately increased left ventricular wall thickness. * Left ventricular function is normal with an estimated ejection fraction of 60-65%. * The left ventricular diastolic function is consistent with grade II diastolic dysfunction (elevated left atrial pressure). * Interventricular septal flattening noted c/w RV pressure-volume overload. * Right ventricular systolic function is reduced. * Estimated pulmonary artery systolic pressure is at least 33 mmHg. IMAGING STUDIES Results for orders placed during the hospital encounter of 05/14/21 XR CHEST PA AND LATERAL Narrative PA AND LATERAL CHEST X-RAY, 05/14/2021 3:20 PM CLINICAL HISTORY: J44.9-Chronic obstructive pulmonary disease, unspecified (HCC)-ICD-10-CM COMPARISON: 06/29/2020 PROCEDURE COMMENTS: Frontal and lateral views of the chest. FINDINGS: Cardiovascular structures within normal limits. Emphysema. No pneumonia or effusion. No pneumothorax. Impression : No acute finding. - Note: Radiology results need to be interpreted within a comprehensive clinical context. If you have questions about the radiology report, please contact the office of the ordering clinician. Results for orders placed during the hospital encounter of 03/02/23 XR CHEST AP PORTABLE Narrative XR CHEST AP PORTABLE, 03/02/2023 7:10 PM CLINICAL HISTORY: -TACHYCARDIA COMPARISON: 09/08/2022. PROCEDURE COMMENTS: AP portable technique. FINDINGS: Stable radiographic appearance of the heart and pulmonary vascular structures. No evidence of acute pulmonary edema. The lungs are clear. No pleural effusions. Impression : The lungs are clear. No acute intrathoracic process. - Note: Radiology results need to be interpreted within a comprehensive clinical context. If you have questions about the radiology report, please contact the office of the ordering clinician. Results for orders placed during the hospital encounter of 09/06/23 CT CHEST WO CONTRAST Narrative CT CHEST WITHOUT CONTRAST, 09/06/2023 9:17 AM CLINICAL HISTORY: R06.09-Other forms of ozgvotm-WVS-72-CM. COMPARISON: Prior comparison contrast chest CT studies dated 09/11/2022, 05/23/2021. PROCEDURE COMMENTS: Multi-detector CT of the chest with multiplanar reconstructions per protocol. No IV contrast injection. Additional multiplanar reconstructions performed and reviewed at dedicated workstation. Dose 1 : CT DLP Total : 418.73 mGycm DLP Spiral Max : 414.49 mGycm Maximum CTDI Vol : 12.53 mGy FINDINGS: No visualized cardiac enlargement with mild diffuse fusiform dilatation changes of the ascending thoracic aorta. Stable scattered calcified/noncalcified reactive intrathoracic lymph nodes which are not enlarged by CT criteria. Small sliding-type hiatal hernia. No acute lung consolidation or pleural effusions. Stable bilateral chronic postinflammatory linear atelectasis/scarring changes of both lungs with greatest involvement of the right upper lobe and lingular segment. Diffuse scattered underlying centrilobular pulmonary emphysematous lung changes. No dominant lung mass/suspicious nodule. No pleural thickening or bronchiectasis changes. Benign calcified left upper lobe lung granulomas. The bony chest wall structures are intact. Remote healed right-sided rib fracture deformities. Stable visualized upper abdominal structures. Impression No acute intrathoracic process. No pleural effusions. Diffuse COPD lung changes with chronic multifocal parenchymal scarring changes with greatest involvement of the right upper lobe and lingular segment. Please see above detailed report. - Note: Radiology results need to be interpreted within a comprehensive clinical context. If you have questions about the radiology report, please contact the office of the ordering clinician. Results for orders placed during the hospital encounter of 09/08/22 CT ANGIOGRAM PULMONARY W CONTRAST Narrative CT PULMONARY ANGIOGRAM, 09/11/2022 10:42 AM CLINICAL HISTORY: -Pulmonary embolism (PE) suspected, high prob. COMPARISON: 05/23/2021 TECHNIQUE: PE protocol CT angiogram of the chest using Isovue 370 IV contrast as recorded in PowerMessage. 2-D multiplanar reconstructions and 3-D MIP reconstructions reviewed. Dose 1 : CT DLP Total : 633.32 mGycm DLP Spiral Max : 617.11 mGycm Maximum CTDI Vol : 21.72 mGy FINDINGS: No acute pulmonary embolism. No aortic aneurysm. Bronchial wall thickening present in the both lung bases with superimposed patchy consolidative opacities in the dependent aspect of both lung bases. Background of advanced upper lobe predominant emphysema. A elongated nodule with spiculated margins present in the right upper lobe measuring 7 x 5 mm (axial image 89). Additional nodule noted in the posterior left upper lobe measuring 6 x 5 mm (axial image 68). Third nodule present within the superior segment right lower lobe measuring 6 mm (axial image 118). These nodules are not well seen on the previous examination and are likely new. Limited evaluation of the upper abdomen reveals no additional abnormality. Coronary artery calcification: Mild. Impression : 1. No acute pulmonary embolism. 2. Bronchial wall thickening with patchy bibasilar consolidative opacities. This could represent an acute bronchitis or pneumonia in the appropriate clinical setting. 3. Several pulmonary nodules measuring up to 6 mm not visible on the comparison study and are indeterminate. Recommend 3 month follow-up CT. CODE Lung Follow Up Note: Radiology results need to be interpreted within a comprehensive clinical context. If you have questions about the radiology report, please contact the office of the ordering clinician. Assessment & Plan COPD, group E, by GOLD 2023 classification (HCC) Centrilobular emphysema (HCC) Possibly could have COPD with overlap asthma Reviewed the patient's past records. Reviewed with patient past CT chest imaging, PFT which is consistent with severe COPD with emphysema. Provided extensive education and counseling regarding natural history of emphysema and potential implications of chronic hypoxia, pulmonary hypertension etc. Answered several questions by patient. recommended alpha-1 antitrypsin phenotyping. Start Breztri 2 puffs twice daily. Reassured the patient about its use, possible adverse effects. Continue albuterol as needed. Recommend PFT to evaluate for any worsening from before. Orders: ALPHA-1 ANTITRYPSIN MUT ANALYSIS-REF LAB; Future PULMONARY FUNCTION TEST; Future hqqongoxfz-cpwxsspk-bzoagzcdzv (BREZTRI AEROSPHERE) 160-9-4.8 mcg/actuation Inhl HFA Aerosol Inhaler; Inhale 2 Puffs into the lungs 2 times daily. VENTOLIN HFA 90 mcg/actuation Inhl HFA Aerosol Inhaler; Inhale 1-2 Puffs into the lungs every 4 hours as needed for Wheezing or Shortness of Breath. Chronic hypoxic respiratory failure (HCC) Secondary to emphysema and COPD. Continue 4 L of oxygen with rest exertion at night. Recommended use of humidifier. Also recommendedto use oxygen cannula via the nose. 4 L allowed oxygen saturation to stay at 91 to 95% at rest during her clinic visit with us. Pulmonary hypertension (HCC) Group 3 secondary to severe COPD, emphysema and chronic hypoxia. Appears to have improved based on previous NT-proBNP. Continue same management. Will also refer patient for lung transplant evaluation . FOLLOW UP Return in about 3 months (around 09/04/2025) for COPD. More than 65 minutes was spent in review of patient's records, greater than 50% of which was spent for extensive counseling of patient Asim Helm MD 06/05/2025 Disclaimer- This note was completed using voice recognition software. Despite my review, it may still contain unintended errors, typos etc. Please do not hesitate to contact me through hospital paging service with questions. documented in this encounter Plan of Treatment Upcoming Encounters Date Type Department Care Team (Late st Contact Info) Description 08/28/2025 11:20 AM EST Office Visit [facility] Pulmonology [facility] [address] [facility] [address] [place] [address] Arlen Bacon, COTTON JAMMER [address] [place] [address] documented as of this encounter Results * (ABNORMAL) PULMONARY FUNCTION TEST (06/05/2025 12:54 PM EDT) [facility] FVC_POST 1.89 1.69 - 2.98 L 06/06/2025 5:17 PM EDT [facility] FEV1_POST 0.69(L) 1.37 - 2.41 L 06/06/2025 5:17 PM EDT [facility] Hb_PRE 12.50 g(Hb)/dL 06/06/2025 5:17 PM EDT [facility] ERV_PRE 0.71 0.22 - 1.26 L 06/06/2025 5:17 PM EDT [facility] RV_PRE 3.78(H) 0.85 - 2.11 L 06/06/2025 5:17 PM EDT [facility] RV%TLC_PRE 69.20(H) 22.34 - 44.75 % 06/06/2025 5:17 PM EDT [facility] TLC_PRE 5.46(H) 3.35 - 5.02 L 06/06/2025 5:17 PM EDT [facility] FVC_PRE 1.50(L) 1.69 - 2.98 L 06/06/2025 5:17 PM EDT [facility] FEV1_PRE 0.47(L) 1.37 - 2.41 L 06/06/2025 5:17 PM EDT [facility] FEV1/FVC_PRE 31.33(L) 69.04 - 91.23 % 06/06/2025 5:17 PM EDT [facility] FVC_Pre%REF 64 % 06/06/2025 5:17 PM EDT [facility] FVC_%Chng 26 % 06/06/2025 5:17 PM EDT [facility] FEV1_Pre%REF 25 % 06/06/2025 5:17 PM EDT [facility] FEV1_%Chng 47 % 06/06/2025 5:17 PM EDT [facility] RV_Pre%REF 270 % 06/06/2025 5:17 PM EDT [facility] TLC_Pre%REF 132 % 06/06/2025 5:17 PM EDT [facility] ERV_Pre%REF 111 % 06/06/2025 5:17 PM EDT [facility] 06/05/2025 12:5 4 PM EDT Impressions [facility] - 06/06/2025 5:16 PM EDT Very severe obstructive defect, with air trapping and hyperinflation. Positive bronchodilator response. Severe reduction in diffusion capacity us Asim Helm MD PFT ORDERABLES Final Result [facility] [address] [place] [id number] * (ABNORMAL) ALPHA-1 ANTITRYPSIN MUT ANALYSIS-REF LAB (06/05/2025 12:30 PM EDT) Bjfga-2-Qfdmmtjbsjh 153 90 - 200 mg/dL 06/14/2025 10:26 AM EDT [employer] [employer] Comment:To convert to umol/L , multiply mg/dL by 0.185 A1A MELANIE Specimen Whole Blood 2024 10:26 AM EDT [employer] [facility] [employer] A1A S Allele Heterozygous( A) 06/14/2025 10:26 AM EDT [employer] A1A Z Allele Negative 06/14/2025 10:26 AM EDT [facility] [employer] A1A SZ Interpretaion See Note 05/27 10:26 AM EDT [employer] [facility] [employer] Comment: Indication for testing: Carrier screening or diagnostic testing for ccpjt-4-gdjmnlkbhss (AAT) deficiency. S Heterozygote/ Protein concentration >=90 mg/dL: This sample has a serum AAT protein concentration in the normal range, but one copy of the S mild deficiency allele was detected by genotyping. The Z deficiency allele was not identified. 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 Individuals heterozygous for the S deficiency allele are not at risk for development of hepatic or pulmonary disease related to AAT deficiency. Because this genotyping assay cannot exclude the presence of a concurrent rare deficiency allele, AAT phenotyping by isoelectric focusing electrophoresis is recommended if the patient is in acute phase. This individual's reproductive partner and other family members should be offered AAT testing. Genetic consultation is recommended. This result has been reviewed and approved by Nicki Soriano M.D., Ph.D. BACKGROUND INFORMATION: A1A (SERPINA1) Enzyme Concentration and 2 Mutations with Reflex to A1A Phenotype CHARACTERISTICS of Lnmox-3-Qcfbmrzqoqp (AAT) Deficiency: Coughing, wheezing, bronchiectasis, chronic obstructive pulmonary disease, emphysema, and cirrhosis. INCIDENCE: 1 in 3000 to 5000 [place] individuals. INHERITANCE: Autosomal recessive. 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 CLINICAL SENSITIVITY: 95 percent. MUTATIONS TESTED: S allele (c.791A>T) and Z allele (c.1024G>A). METHODS: Genotyping performed by polymerase chain reaction (PCR) and fluorescence monitoring; AAT protein concentration measured using immunoturbidmetric assay; phenotyping performed by isoelectric focusing electrophoresis. Genotyping and AAT serum protein concentration determination are performed on all specimens. Protein phenotyping is only performed on specimens that have AAT protein concentrations of less than 90 mg/dL and are not homozygous or compound heterozygous for the S or Z deficiency alleles by genotyping. ANALYTICAL SENSITIVITY AND SPECIFICITY: 99 percent. LIMITATIONS: SERPINA1 mutations, other than the S (c.791A>T) and Z (c.1024G>A) alleles, will not be detected. Diagnostic errors can occur due to rare sequence variations. This test was developed and its performance characteristics determined by [facility]. It has not been cleared or approved by the US Food and Drug Administration. This test was performed in a CLIA certified laboratory and is intended for clinical purposes. Counseling and informed consent are recommended for genetic testing. Consent forms are available online. Performed By: [facility] [address] [place] [id number] Engineering Technical Writer: Joel Trujillo MD, PhD CLIA Number: [id number] A1A Phenotype Not Applicable 06/14/2025 10:26 AM EDT [facility] Blood VENOUS BLOOD / Unknown Venipuncture / Unknown 06/05/2025 12:30 PM EDT 06/05/2025 12:30 PM EDT Asim Helm MD CHEMISTRY ORDERABLES Final Resu lt [facility] [address] [place] [address] documented in this encounter Visit Diagnoses Diagnosis COPD, group E, by GOLD 2022 classification (HCC)- Primary Centrilobular emphysema (HCC) Other emphysema Chronic hypoxic respiratory failure (HCC) Pulmonary hypertension (HCC) Other chronic pulmonary heart diseases COPD, group E, by GOLD 202 classification (HCC)- Primary documented in this encounter Discontinued Medications Medication Sig Discontinue Reason Start Date End Da te qufcumwfzc-oesiwtra-efj moterol (BREZTRI AEROSPHERE) 160-9-4.8 mcg/actuation Inhl HFA Aerosol Inhaler Inhale 2 Puffs into the lungs 2 times daily. Reorder 10/16/2023 06/05/2025 VENTOLIN HFA 90 mcg/actuation Inhl HFA Aerosol InhalerIndications:Office Helper Clerical gustavo respiratory failure with hypoxia (HCC),Severe persistent asthma without complication (HCC) Inhale 1-2 Puffs into the lungs every 4 hours as needed for Wheezing or Shortness of Breath. Reorder 12/07/2022 06/05/2025 losartan (COZAAR) 25 mg Oral Tablet Take 25 mg by mouth 2 times daily. DELETE- Stopped by provider 06/05/2025 documented as of this encounter Care Teams Field Account Manager Relationship Specialty Start Date End Date Vargas Hernandez MD PCP - General Family Medicine 12/09/19 documented as of this encounter
--- OUTSIDE RECORDS SUMMARY | 2025-06-05 11:19 | XMS_ITS | Encounter Summary ---
Author Organization [place] [address] Care Team Providers Care Director Business Development Name Role Phone Vargas Hernandez MD Primary Care Provider [phone] Reason for Referral * Genetic Lab Test (Routine) - Pending Review Specialty Diagnoses / Procedures Referred By Contac t Referred To Contact Diagnoses COPD, group E, by GOLD 2022 classification (HCC) Procedures ALPHA-1 ANTITRYPSIN MUT ANALYSIS-REF LAB Asim Helm MD [address] [place] [address] Phone: tel: fax: Referral ID Status Reason Start Date Expiration Date V isits Requested Visits Authorized [id number] Pending Review 06/05/2025 06/05/2026 1 1 Reason for Visit * Genetic Lab Test (Routine) - Pending Review Specialty Diagnoses / Procedures Referred By Contac t Referred To Contact Diagnoses COPD, group E, by GOLD 2022 classification (HCC) Procedures ALPHA-1 ANTITRYPSIN MUT ANALYSIS-REF LAB Asim Helm MD [address] [place] [address] Phone: tel: fax: Referral ID Status Reason Start Date Expiration Date V isits Requested Visits Authorized [id number] Pending Review 06/05/2025 06/05/2026 1 1 Encounter Details Date Type Department Care Team (Latest Contact Info) Description 06/05/2025 12:19 PM EDT - 06/05/2025 12:53 PM EDT Hospital Encounter [facility] [address] [place] [id number] COPD, group E, by GOLD 2022 classification (HCC) Discharge Disposition: Home or Self Care Social History Tobacco Use Types Packs/Day Years Used Date Smoking Tobacco: Former Cigarettes 1.5 44 0 09/25/1973 - 09/26/2017 Smokeless Tobacco: Never Alcohol Use Standard Drinks/Week Comments Not Currently [...] medical care, and heating? Somewhat hard 02/09/2022 [facility] [place] of Occupat ional Health - Occupational Stress [...] on file documented as of this encounter Functional Status * Is the [...] 09/15/2022 4:33 PM Chauncey Lorenzana RN * Because of a physical, mental or [...] Chauncey Lorenzana RN documented in this encounter Medications at Time of Discharge ALPRAZolam (XANAX) 1 mg Oral TabletIndications:a nxiety Take 1 mg by mouth daily as needed. Indications: anxious baclofen (LIORESAL) 10 mg Oral Tablet Take 10 mg by mouth 2 times daily. benzonatate (TESSALON) 100 mg Oral Capsule 06/23/2023 budesonide-glycopyr -formoterol (BREZTRI AEROSPHERE) 160-9-4.8 mcg/actuation Inhl HFA Aerosol InhalerIndications: COPD, group E, by GOLD 2022 classification ([facility]) Inhale 2 Puffs into the lungs 2 times daily. 10.7 g 5 06/05/2025 fUROsemide (LASIX) 40 mg Oral Tablet 04/04/2023 nystatin (MYCOSTATIN) Top Powder APPLY POWDER TOPICALLY TO AFFECTED AREA TWICE DAILY 06/23/2023 Oxygen and Equipment MISCELLANEOUIndicat ions:Pneumonia of right upper lobe due to methicillin resistant Staphylococcus aureus (MRSA) ([facility]) 1Use as directed. 1 Each 12/19/2023 Oxygen and Equipment MISCELLANEOUIndicat ions:Pneumonia due to infectious organism, unspecified laterality, unspecified part of lung,Asthma-COPD overlap syndrome ([facility]) 4 Liters of oxygen via nasal canula continuous concentrator, portables and with conserving device Life time 99 months dx code copd j44.9 1 Each 12/29/2022 pantoprazole (PROTONIX) 40 mg Oral Tablet, Delayed Release (E.C.) Take 1 Tablet by mouth daily. 30 Tablet 09/16/2022 spironolactone (ALDACTONE) 25 mg Oral Tablet Take 1 Tablet by mouth 2 times daily. 120 Tablet 11 10/16/2023 VENTOLIN HFA 90 mcg/actuation Inhl HFA Aerosol InhalerIndications: COPD, group E, by GOLD 2022 classification ([facility]) Inhale 1-2 Puffs into the lungs every 4 hours as needed for Wheezing or Shortness of Breath. 18 g 11 06/05/2025 documented as of this encounter Discharge Disposition Disposition Code Departure Means Destination Home or Self Care documented in this encounter Plan of Treatment Upcoming Encounters Date Type Department Care Team (Late st Contact Info) Description 08/28/2025 11:20 AM EST Office Visit [facility] Pulmonology [facility] [address] [address] Arlen Bacon, DIRECTOR OF BILLING [address] [place] [address] documented as of this encounter Procedures Procedure Name Priority Date/Time Associated Diagnosis Comments ALPHA-1 ANTITRYPSIN MUT ANALYSIS-REF LAB Routine 06/05/2025 12:30 PM EDT COPD, group E, by GOLD 2022 classification ([facility]) documented in this encounter Results * (ABNORMAL) ALPHA-1 ANTITRYPSIN MUT ANALYSIS-REF LAB (06/05/2025 12:30 PM EDT) Lbmup-5-Mlefdjprnmo 153 90 - 200 mg/dL 06/14/2025 10:26 AM EDT [employer] [facility] [employer] Comment:To convert to umol/L , multiply mg/dL by 0.185 A1A MELANIE Specimen Whole Blood 2024 10:26 AM [employer] [facility] [employer] A1A S Allele Heterozygous( A) 06/14/2025 10:26 AM EDT [employer] [facility] [employer] A1A Z Allele Negative 06/14/2025 10:26 AM EDT [employer] [facility] [employer] A1A SZ Interpretaion See Note 05/27 10:26 AM EDT [employer] [facility] [employer] Comment: Indication for testing: Carrier screening or diagnostic testing for etknu-6-taexdmwozle (AAT) deficiency. S Heterozygote/ Protein concentration >=90 [...] with Reflex to A1A Phenotype CHARACTERISTICS of Mjnhy-1-Zweggujmnvn (AAT) Deficiency: Coughing, wheezing, bronchiectasis, chronic obstructive pulmonary disease, emphysema, and cirrhosis. INCIDENCE: 1 in 3000 to 5000 [place] individuals. INHERITANCE: Autosomal recessive. CAUSE: Two pathogenic [...] developed and its performance characteristics determined by [facility]. It has not been cleared or approved by the US Food and Drug Administration. This test was performed in a CLIA certified laboratory and is intended for clinical purposes. Counseling and informed consent are recommended for genetic testing. Consent forms are available online. Performed By: [facility] [address] [place] [address] Gas Golf Cart Repairer: Joel Trujillo MD, PhD CLIA Number: [id number] A1A Phenotype Not Applicable 06/14/2025 10:26 AM EDT [facility] VENOUS BLOOD / Unknown Venipuncture / Unknown 06/05/2025 12:30 PM EDT 06/05/2025 12:30 PM EDT us Asim Helm MD CHEMISTRY ORDERABLES Final Resu lt [employer] [address] [place] [address] documented in this encounter Visit Diagnoses Diagnosis COPD, group E, by GOLD 2023 classification (HCC) documented in this encounter Care Teams Director Business Development Relationship Specialty Start Date End Date Vargas Hernandez MD PCP - General Family Medicine 12/09/19 documented as of this encounter
--- OUTSIDE RECORDS SUMMARY | 2025-06-05 11:54 | XMS_ITS | Encounter Summary ---
Author Organization [place] [address] Care Team Providers Care Refiner Operator Name Role Phone Vargas Hernandez MD Primary Care Provider [phone] Reason for Referral * PFT (Routine) - Pending Review Specialty Diagnoses / Procedures Referred By Contac t Referred To Contact Diagnoses COPD, group E, by GOLD 2022 classification ([facility]) Procedures PULMONARY FUNCTION TEST Asim Helm MD [address] [place] [address] Phone: tel: fax: Referral ID Status Reason Start Date Expiration Date V isits Requested Visits Authorized [id number] Pending Review 06/05/2025 06/05/2026 1 1 Reason for Visit * PFT (Routine) - Pending Review Specialty Diagnoses / Procedures Referred By Conttrevor t Referred To Contact Diagnoses COPD, group E, by GOLD 2022 classification ([facility]) Procedures PULMONARY FUNCTION TEST Asim Helm MD [address] [place] [address] Phone: tel: fax: Referral ID Status Reason Start Date Expiration Date V isits Requested Visits Authorized [id number] Pending Review 06/05/2025 06/05/2026 1 1 Encounter Details Date Type Department Care Team (Latest Contact Info) Description 06/05/2025 12:54 PM EDT - 06/05/2025 11:59 PM EDT Hospital Encounter [facility] [address] [place] [id number] COPD, group E, by GOLD 2022 classification (HCC) (Primary Dx) Discharge Disposition: Home or Self Care Social [...] medical care, and heating? Somewhat hard 02/09/2022 [facility] [place] of Occupat ional Health - Occupational Stress [...] Aerosol InhalerIndications: COPD, group E, by GOLD 2023 classification ([facility]) Inhale 2 Puffs into the lungs 2 times daily. 10.7 g 5 06/05/2025 fUROsemide (LASIX) 40 mg Oral Tablet 04/04/2023 nystatin (MYCOSTATIN) Top Powder APPLY POWDER TOPICALLY TO AFFECTED AREA TWICE DAILY 06/23/2023 Oxygen and Equipment MISCELLANEOUIndicat ions:COPD, group E, by GOLD 202 classification ([facility]) Use as directed. 1 Each 06/05/2025 Oxygen and Equipment MISCELLANEOUIndicat ions:Pneumonia of right upper lobe due to methicillin resistant Staphylococcus aureus (MRSA) ([facility]) 1Use as directed. 1 Each 12/19/2023 Oxygen and Equipment MISCELLANEOUIndicat ions:Pneumonia due to infectious organism, unspecified laterality, unspecified part of lung,Asthma-COPD overlap syndrome ([facility]) 4 Liters of oxygen via nasal canula [...] COPD, group E, by GOLD 2022 classification ([facility]) Inhale 1-2 Puffs into the lungs [...] 11:20 AM EST Office Visit [facility] [address] [address] Arlen Bacon, PRINTED CIRCUIT BOARD PANELS DEVELOPER [address] [place] [address] documented as of this encounter Procedures Procedure Name Priority Date/Time Associated Diagnosis Comments PULMONARY FUNCTION TEST Routine 06/05/2025 12:54 PM EDT COPD, group E, by GOLD 2022 classification ([facility]) documented in this encounter Results * (ABNORMAL) PULMONARY FUNCTION TEST (06/05/2025 12:54 PM EDT) FVC_POST 1.89 1.69 - 2.98 L 06/06/2025 5:17 PM EDT [facility] FEV1_POST 0.69(L) 1.37 - 2.41 L 06/06/2025 5:17 PM EDT [facility] Hb_PRE 12.50 g(Hb)/dL 06/06/2025 5:17 PM EDT [facility] ERV_PRE 0.71 0.22 - 1.26 L 06/06/2025 5:17 PM EDT [facility] RV_PRE 3.78(H) 0.85 - 2.11 L 06/06/2025 5:17 PM EDT [facility] RV%TLC_PRE 69.20(H) 22.34 - 44.75 % 06/06/2025 5:17 PM EDT [facility] TLC_PRE 5.46(H) 3.35 - 5.02 L 06/06/2025 5:17 PM EDT [facility] FVC_PRE 1.50(L) 1.69 - 2.98 L 06/06/2025 5:17 PM EDT [facility] FEV1_PRE 0.47(L) 1.37 - 2.41 L 06/06/2025 5:17 PM EDT [facility] FEV1/FVC_PRE 31.33(L) 69.04 - 91.23 % 06/06/2025 5:17 PM EDT [facility] FVC_Pre%REF 64 % 06/06/2025 5:17 PM EDT [facility] FVC_%Chng 26 % 06/06/2025 5:17 PM EDT [facility] FEV1_Pre%REF 25 % 06/06/2025 5:17 PM EDT [facility] FEV1_%Chng 47 % 06/06/2025 5:17 PM EDT [facility] RV_Pre%REF 270 % 06/06/2025 5:17 PM EDT [facility] TLC_Pre%REF 132 % 06/06/2025 5:17 PM EDT [facility] ERV_Pre%REF 111 % 06/06/2025 5:17 PM EDT [facility] 06/05/2025 12:5 4 PM EDT Impressions [facility] - 06/06/2025 5:16 PM EDT Very severe obstructive defect, with air trapping and hyperinflation. Positive bronchodilator response. Severe reduction in diffusion capacity us Asim Helm MD PFT ORDERABLES Final Result [facility] [address] [place] [address] documented in this encounter Visit Diagnoses Diagnosis COPD, group E, by GOLD 2022 classification (HCC)- Primary documented in this encounter Administered Medications Inactive Administered Medications - up to 1 most recent administrations Medication Order MAR Action Action Date Dose Rate Site albuterol (PROVENTIL HFA;VENTOLIN HFA) inhaler 2 Puff 2 Puff, Inhalation, ONCE, 1 dose, On Karely 06/05/25 at 1430, Waste Sort Code = BLACK RCRA Hazardous Waste Container Given 06/05/2025 1:57 PM EDT 2 Puffs documented in this encounter Orders Medications Ordered That Torey ht Not Have Been Administered Count Last Ordered Date First Ordered Date albuterol (PROVENTIL HFA;DANNI TOLIN HFA) inhaler 2 Puff 1 06/05/2025 documented in this encounter Care Teams Refiner Operator Relationship Specialty Start Date End Date Vargas Hernandez MD PCP - General Family Medicine 12/09/19 documented as of this encounter
[2025-07-25 19:15] LABS: Hematocrit 51.4 % (37.0-47.0); Hemoglobin 15.3 g/dL (12.2-16.2); Immature Granulocytes % 0.4 %; Mean Corpuscular HGB Conc 29.8 g/dL (31.8-35.4); Mean Corpuscular Hemoglobin 29.4 pg (27.0-31.2); Mean Corpuscular Volume 98.8 fl (81-99); Nucleated Red Blood Cells % 0 %; Platelet Count 242 K/mm3 (142-424); Red Blood Count 5.20 M/mm3 (4.20-5.40); Red Cell Distribution Width-SD 49.3 fL; White Blood Count 13.6 K/mm3 (4.8-10.8)
[2025-07-25 19:35] LABS: Alanine Aminotransferase 16 U/L (12-78); Albumin Level 3.2 g/dl (3.5-5.0); Albumin/Globulin Ratio 0.8 (1.1-1.8); Alkaline Phosphatase 80 U/L (38-126); Aspartate Amino Transferase 24 U/L (14-36); Bilirubin,Total 1.2 mg/dl (0.2-1.3); Blood Urea Nitrogen 14 mg/dl (7-17); Calcium 9.2 mg/dl (8.4-10.2); Chloride 93 mmol/L (98-107); Cholesterol 162 mg/dl (140-200); Creatinine,Serum 0.90 mg/dl (0.52-1.04); Estimated Glomerular Filt Rate 64 ml/min (>60); GFR (African American) 78 ML/MIN (>60); Globulin 3.9 g/dL (1.3-3.2); Glucose 200 mg/dl (74-100); HDL Cholesterol 49 mg/dl (40-60); Potassium 4.3 mmoL/L (3.5-5.1); Sodium 137 mmol/L (136-145); Total Protein,Serum 7.1 g/dl (6.3-8.2); Triglycerides 198 mg/dl (30-150)
[2025-07-25 20:20] LABS: Anion Gap 9.3 mEq/L (5-15); Carbon Dioxide 39 mmol/L (22.0-30.0)
--- OUTSIDE RECORDS SUMMARY | 2025-07-28 10:10 | XMS_ITS | Clinical Summary ---
Author Organization [facility] Address [address] [place] [address] Phone Care Team Providers Care Invoicing Machine Operator Name Role Phone Vargas Hernandez MD Primary Care Provider [phone] Allergies Active Allergy Reactions Criticality Noted Date Comments Amoxicillin-Pot Clavulanate Other (See Comments) Medium 09/08/2022 Headache Clarithromycin Other (See Comments) Low 11/01/2019 States: abd pain in liver area, sore Codeine Hives,Nausea And Vomiting Medium 01/22/2016 Ketorolac Tromethamine Hives,Nausea And Vomiting Medium 01/22/2016 Lisinopril Cough Low 04/01/2020 Per patient's report Metronidazole Nausea And Vomiting Medium 01/22/2016 Amlodipine Swelling Medium 04/01/2020 Medications baclofen (LIORESAL) 10 mg Oral Tablet Take 10 mg by mouth 2 times daily. Active ALPRAZolam (XANAX) 1 mg Oral TabletIndications: anxiety Take 1 mg by mouth daily as needed. Indications: anxious Active pantoprazole (PROTONIX) 40 mg Oral Tablet, Delayed Release (E.C.) Take 1 Tablet by mouth daily. 30 Tablet 2 Active Oxygen and Equipment MISCELLANEOUIndica tions:Pneumonia due to infectious organism, unspecified laterality, unspecified part of lung,Asthma-COPD overlap syndrome (HCC) 4 Liters of oxygen via nasal canula continuous concentrator, portables and with conserving device Life time 99 months dx code copd j44.9 1 Each 3 Active benzonatate (TESSALON) 100 mg Oral Capsule 3 Active fUROsemide (LASIX) 40 mg Oral Tablet 3 Active nystatin (MYCOSTATIN) Top Powder APPLY POWDER TOPICALLY TO AFFECTED AREA TWICE DAILY 3 Active spironolactone (ALDACTONE) 25 mg Oral Tablet Take 1 Tablet by mouth 2 times daily. 120 Tablet 11 4 Active Oxygen and Equipment MISCELLANEOUIndica tions:Pneumonia of right upper lobe due to methicillin resistant Staphylococcus aureus (MRSA) ([facility]) 1Use as directed. 1 Each 4 Active budesonide-glycopy r-formoterol (BREZTRI AEROSPHERE) 160-9-4.8 mcg/actuation Inhl HFA Aerosol InhalerIndications :COPD, group E, by GOLD 2022 classification ([facility]) Inhale 2 Puffs into the lungs 2 times daily. 10.7 g 5 5 Active VENTOLIN HFA 90 mcg/actuation Inhl HFA Aerosol InhalerIndications :COPD, group E, by GOLD 3 classification ([facility]) Inhale 1-2 Puffs into the lungs every 4 hours as needed for Wheezing or Shortness of Breath. 18 g 11 5 Active Oxygen and Equipment MISCELLANEOUIndica tions:COPD, group E, by GOLD 2022 classification ([facility]) Use as directed. 1 Each 5 Active Active Problems Problem Noted Date Diagnosed Date Centrilobular emphysema 06/05/2025 Assessment & Plan (06/05/2025 4:08 PM EDT): Possibly could have COPD with overlap asthma [...] ANALYSIS-REF LAB; Future PULMONARY FUNCTION TEST; Future ordvdpjxct-ymjphzwy-zbckisbxcc (BREZTRI AEROSPHERE) 160-9-4.8 mcg/actuation Inhl HFA Aerosol Inhaler; Inhale 2 Puffs into the lungs 2 times daily. VENTOLIN HFA 90 mcg/actuation Inhl HFA Aerosol Inhaler; Inhale 1-2 Puffs into the lungs every 4 hours as needed for Wheezing or Shortness of Breath. Chronic hypoxic respiratory failure 06/05/2025 Assessment & Plan (06/05/2025 4:08 PM EDT): Secondary to emphysema and COPD. Continue 4 L of oxygen with rest exertion at night. Recommended use of humidifier. Also recommended to use oxygen cannula via the nose. 4 L allowed oxygen saturation to stay at 91 to 95% at rest during her clinic visit with us. Pulmonary hypertension 06/05/2025 Assessment & Plan (06/05/2025 4:08 PM EDT): Group 3 secondary to severe COPD, emphysema and chronic hypoxia. Appears to have improved based on previous NT-proBNP. Continue same management. Homeless 09/09/2022 Influenza A 09/08/2022 Nasal congestion 02/11/2022 Nasal septal deviation 02/11/2022 Mediastinal lymphadenopathy 01/19/2022 Vitamin D deficiency 05/24/2021 Hypoxemia 05/23/2021 Hyponatremia 05/23/2021 Elevated brain natriuretic peptide (BNP) level 0 05/23/2021 Elevated troponin 05/23/2021 Pneumonia due to COVID-19 virus 05/23/2021 Gastroesophageal reflux disease 04/16/2021 Overview (04/16/2021): Added automatically from request for surgery [id number] Screening for colon cancer 04/16/2021 Overview (04/16/2021): Added automatically from request for surgery [id number] Thrush 10/12/2020 Epigastric pain 04/28/2020 Heartburn 04/28/2020 Severe sepsis 03/30/2020 Pneumonia of right lung due to infectious organi sm 03/30/2020 YANDEL (acute kidney injury) 03/30/2020 Lactic acidosis 03/30/2020 Prediabetes 12/08/2019 COPD, group E, by GOLD 2022 classification 12/06 Assessment & Plan (06/05/2025 4:08 PM EDT): Possibly could have COPD with overlap asthma [...] ANALYSIS-REF LAB; Future PULMONARY FUNCTION TEST; Future ticcfrrqzy-gpdbsexg-fhrqpmfibx (BREZTRI AEROSPHERE) 160-9-4.8 mcg/actuation Inhl HFA Aerosol Inhaler; Inhale 2 Puffs into the lungs 2 times daily. VENTOLIN HFA 90 mcg/actuation Inhl HFA Aerosol Inhaler; Inhale 1-2 Puffs into the lungs every 4 hours as needed for Wheezing or Shortness of Breath. Bilateral lower extremity edema 11/05/2019 Essential hypertension 11/05/2019 Anxiety 11/05/2019 Morbid obesity 11/05/2019 Pneumonia of both lower lobes Pneumonia of right lung due to methicillin resistant Staphylococcus aureus (MRSA) Resolved Problems Problem Noted Date Diagnosed Date Resolved Date Hyperglycemia 12/08/2019 04/07/2020 Shortness of breath 11/05/2019 04/07/20 20 Severe persistent asthma with exacerbation 01/08/2020 Encounters Date Type Department Care Team Description 06/20/2025 Results Follow-Up [facility] [address] [place] [address] Asim Helm MD ALPHA-1 ANTITRYPSIN MUT ANALYSIS-REF LAB 06/05/2025 12:54 PM EDT - 06/05/2025 11:59 PM EDT Hospital Encounter [facility] [address] [place] [address] COPD, group E, by GOLD 2022 classification (HCC) (Primary Dx) Discharge Disposition: Home or Self Care 06/05/2025 12:19 PM EDT - 06/05/2025 12:53 PM EDT Hospital Encounter [facility] [address] [facility] [place] [address] COPD, group E, by GOLD 2022 classification (HCC) Discharge Disposition: Home or Self Care 06/05/2025 10:45 AM EDT Office Visit [facility] [address] [address] Asim Helm MD COPD, group E, by GOLD 2022 classification (HCC) (Primary Dx); Centrilobular emphysema (HCC); Chronic hypoxic respiratory failure (HCC); Pulmonary hypertension (HCC) 06/05/2025 Orders Only [facility] [address] [address] Suri Paige MA COPD, group E, by GOLD 2022 classification (HCC) (Primary Dx) from Last 3 Months Surgical History Surgery Date Site/Laterality Comments TUBAL LIGATION POLYPECTOMY SHOULDER SURGERY FINGER TRIGGER RELEASE EYE SURGERY DENTAL SURGERY Medical History Medical History Date Comments Asthma Hypertension Glaucoma Kenny esophagus Fibromyalgia Anxiety Shortness of breath Pneumonia Post-operative nausea and vomiting Social History Tobacco Use Types Packs/Day Years [...] medical care, and heating? Somewhat hard 02/09/2022 [facility] [employer] [facility] - Occupational Stress [...] on file Sexual Orientation Not on file Last Filed Vital Signs Vital Sign Reading Time Taken Comments Blood Pressure 130/80 06/05/2025 10:41 AM EDT Pulse 54 06/05/2025 10:41 AM EDT Temperature 36.6 C (97.8 F) 03/02/2023 6:43 PM EDT Respiratory Rate 18 10/16/2023 1:42 PM EST 4 lpm at rest Oxygen Saturation 76% 06/05/2025 10:41 AM EDT 8l@rest Inhaled Oxygen Concentration - - Weight 80.3 kg (177 lb) 06/05/2025 10:41 AM EDT Height 149.9 cm (4' 11 ) 06/05/2025 10:41 AM EDT Body Mass Index 35.75 06/05/2025 10:41 AM EDT Plan of Treatment Upcoming Encounters Date Type Department Care Team (Late st Contact Info) Description 08/28/2025 11:20 AM EST Office Visit [facility] [address] [facility] Building [address] [place] [phone] Arlen Bacon, JESSENIA [address] [place] [address] Health Maintenance Due Date Last Done Comments Annual Wellness Exam 1968 Diabetic Eye Exam 1983 Kidney Health: uACR 1983 Hepatitis B Vaccine (1 of 3 - 19+ 3-dose series) 1984 Pneumococcal Vaccine 50+ (1 of 2 - PCV) 1984 Cervical Cancer Screening 1986 Pap Smear 1986 HPV/Pap Cotest 1995 Breast Cancer Screening 2005 Cologuard 2010 FIT 2010 Sigmoidoscopy 2010 Virtual Colonography 2010 Zoster (1 of 2) 2015 Colon Cancer Screening 05/05/2024 Colonoscopy 05/05/2024 05/05/2021 Kidney Health: eGFR 09/05/2024 09/05/2023, 03/02/2023, 09/14/2022, Additional history exists Low Dose Lung Cancer Screening 09/06/2024 09/06/2023, 09/11/2022, 05/23/2021, Additional history exists Hemoglobin A1c 11/10/2024 05/10/2024, 08/25, 03/31/2020, Additional history exists Lipids 05/10/2025 05/10/2024, 07/0 02/2023, 09/10/2022, Additional history exists COVID-19 Vaccine ( - 2024- season) 2025 Influenza Vaccine (#1) 2025 DTaP/TDaP/Td (2 - Td or Tdap) 01/17/2029 01/17/2019 Hepatitis C Screening Completed 04/02/2020 Meningococcal B Vaccine Aged Out No l onger eligible based on patient's age to complete this topic Procedures Procedure Name Priority Date/Time Associated Diagnosis Comments PULMONARY FUNCTION TEST Routine 06/05/2025 12:54 PM EDT COPD, group E, by GOLD 2022 classification ([facility]) ALPHA-1 ANTITRYPSIN MUT ANALYSIS-REF LAB Routine 06/05/2025 12:30 PM EDT COPD, group E, by GOLD 2022 classification ([facility]) CT CHEST WO CONTRAST Routine 09/06/2023 9:17 AM EST Dyspnea on exertion COMPREHENSIVE METABOLIC PANEL Routine 09/05/2023 11:08 AM EST Dyspnea on exertion Chronic respiratory failure with hypoxia (HCC) Asthma-COPD overlap syndrome (HCC) Pulmonary hypertension, primary (HCC) HEMOGLOBIN A1C Early AM 09/12/2022 8:12 AM EST LIPID SCREEN Early AM 09/10/2022 5:56 AM EST [facility] EGD-COLONOSCOPY Routine 05/05/2021 10:00 AM EDT ACUTE HEPATITIS PANEL Routine 04/02/2020 5:34 AM EDT from Last 3 Months or Most Recently Relevant to Health Maintenance Results * (ABNORMAL) PULMONARY FUNCTION TEST (06/05/2025 [...] ORDERABLES Final Result [facility] [address] [id number] * (ABNORMAL) ALPHA-1 ANTITRYPSIN MUT ANALYSIS-REF LAB (06/05/2025 12:30 PM EDT) Uljef-5-Tvmfvpkcknu 153 90 - 200 mg/dL 06/14/2025 10:26 AM EDT [facility] Comment:To convert to umol/L , multiply mg/dL by 0.185 A1A MELANIE Specimen Whole Blood 2024 10:26 AM EDT [facility] A1A S Allele Heterozygous( A) 06/14/2025 10:26 AM EDT [facility] A1A Z Allele Negative 06/14/2025 10:26 AM EDT [facility] A1A SZ Interpretaion See Note 05/27 10:26 AM EDT [facility] Comment: Indication for testing: 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 S Heterozygote/ Protein concentration >=90 [...] with Reflex to A1A Phenotype CHARACTERISTICS of Qmsof-6-Qlqoslilzwz (AAT) Deficiency: Coughing, wheezing, bronchiectasis, chronic obstructive pulmonary disease, emphysema, and cirrhosis. INCIDENCE: 1 in 3000 to 5000 [place] individuals. INHERITANCE: Autosomal recessive. CAUSE: Two pathogenic [...] developed and its performance characteristics determined by [facility]. It has not been cleared or approved by the [place] Food and Drug Administration. This test was performed in a CLIA certified laboratory and is intended for clinical purposes. Counseling and informed consent are recommended for genetic testing. Consent forms are available online. Performed By: [facility] [address] [place] [address] Attending Anesthesiologist: Joel Trujillo MD, PhD CLIA Number: [id number] A1A Phenotype Not Applicable 06/14/2025 10:26 AM EDT [facility] Blood VENOUS BLOOD / Unknown Venipuncture / Unknown 06/05/2025 12:30 PM EDT 06/05/2025 12:30 PM EDT us Asim Helm MD CHEMISTRY ORDERABLES Final Resu lt [facility] [address] [place] [address] * CT CHEST WO CONTRAST (09/06/2023 9:17 AM EST) Anatomical Region Laterality Modality Chest Computed Tomogra phy 09/06/2023 9:17 AM EST Impressions 09/06/2023 2:27 PM EST No acute intrathoracic process. No pleural effusions. Diffuse COPD lung changes with chronic multifocal parenchymal scarring changes with greatest involvement of the right upper lobe and lingular segment. Please see above detailed report. - Note: Radiology results need to be interpreted within a comprehensive clinical context. If you have questions about the radiology report, please contact the office of the ordering clinician. Narrative 09/06/2023 2:[address] CHEST WITHOUT CONTRAST, 09/06/2023 9:17 AM CLINICAL HISTORY: R06.09-Other forms of cglispa-PAC-08-CM. COMPARISON: Prior comparison contrast chest CT studies [...] fracture deformities. Stable visualized upper abdominal structures. Procedure Note Lj Rodríguez, DO - 09/06/2023 CT CHEST WITHOUT CONTRAST, 09/06/2023 9:17 AM CLINICAL HISTORY: R06.09-Other forms of upfxqol-CHI-85-CM. COMPARISON: Prior comparison contrast chest CT studies dated111/12/2021, 05/23/2021. PROCEDURE COMMENTS: Multi-detector CT of the chest with multiplanar reconstructions per protocol. No IV contrast injection. Additionalmultiplanar reconstructions performed and reviewed at dedicated workstation. Dose 1 : CT DLP Total : 418.73 mGycm DLP Spiral Max : 414.49 mGycm Maximum CTDI Vol : 12.53 mGy FINDINGS: No visualized cardiac enlargement with mild diffuse fusiform dilatation changes of the ascending thoracic aorta. Stable scattered calcified/noncalcified reactive intrathoracic lymph nodes which are notenlarged by CT criteria. Small sliding-type hiatal hernia. No acute lung consolidation or pleural effusions. Stable bilateralchronic postinflammatory linear atelectasis/scarring changes of both lungs withgreatest involvement of the right upper lobe and lingular segment. Diffusescattered underlying centrilobular pulmonary emphysematous lung changes. No dominantlung mass/suspicious nodule. No pleural thickening or bronchiectasis changes.Benign calcified left upper lobe lung granulomas. The bony chest wall structures are intact. Remote healed right-sided rib fracture deformities. Stable visualized upper abdominal structures. IMPRESSION: No acute intrathoracic process. No pleural effusions. Diffuse COPD lung changes with chronic multifocal parenchymal scarring changes withgreatest involvement of the right upper lobe and lingular segment. Please seeabove detailed report. - Note: Radiology results need to be interpreted within a comprehensiveclinical context. If you have questions about the radiology report, please contactthe office of the ordering clinician. us Vargas Monroy MD IMG CT ORDERABLES Final Res ult * (ABNORMAL) COMPREHENSIVE METABOLIC PANEL (09/05/2023 11:08 AM EST) Sodium 138 136 - 145 mmol/L 09/05/2023 9:11 PM EST [facility] Potassium 4.4 3.5 - 5.0 mmol/L 09/05/2023 9:11 PM EST [facility] Chloride 99 98 - 107 mmol/L 09/05/2023 9:11 PM EST [facility] Total CO2 32(H) 22 - 29 mmol/L 09/05/2023 9:11 PM EST [facility] Anion Gap 7 7 - 16 mmol/L 09/05/2023 9:11 PM EST [facility] Calcium 9.9 8.6 - 10.4 mg/dL 09/05/2023 9:11 PM EST [facility] Glucose Lvl 83 74 - 100 mg/dL 09/05/2023 9:11 PM EST [facility] BUN 16 6 - 20 mg/dL 09/05/2023 9:11 PM EST [facility] Creatinine 0.84 0.51 - 1.30 mg/dL 09/05/2023 9:11 PM EST [facility] Albumin 4.3 3.5 - 5.2 gm/dL 09/05/2023 9:11 PM EST [facility] Total Protein 7.2 6.4 - 8.3 gm/dL 09/05/2023 9:11 PM EST [facility] Bili Total 0.7 0.2 - 1.3 mg/dL 09/05/2023 9:11 PM EST [facility] ALT 14 <=41 U/L 09/05/2023 9:11 PM EST [facility] AST 12 <=40 U/L 09/05/2023 9:11 PM EST [facility] Alk Phos 85 36 - 123 U/L 09/05/2023 9:11 PM EST [facility] eGFR (CKD-EPIcr 2020) 80 >=60 mL/min/1.7 3 m2 09/05/2023 9:11 PM EST [facility] Comment:Estimated GFR was ca lculated using the CKD-EPIcr (2020) equation refit without race. The equation is recommended by the National Kidney Foundation - [place] [employer] of Nephrology Task Force. Blood VENOUS BLOOD / Unknown Venipuncture / Unknown 09/05/2023 11:08 AM EST 09/05/2023 11:10 AM EST us Vargas Monroy MD CHEMISTRY ORDERABLES Final Result Performing Organization Address City/[facility]/ZIP Co de Phone Number [facility] [address] , [place] [address] [facility] [address] [place] [address] * (ABNORMAL) HEMOGLOBIN A1C (09/12/2022 8:12 AM EST) Hgb A1C 6.7(H) 4.2 - 5.6 % 09/12/2022 11:35 AM EST [facility] Est. Avg Glucose 146 mg/dL 09/12/2022 11:35 AM EST [facility] Blood VENOUS BLOOD / Unknown Venipuncture / Unknown 09/12/2022 8:12 AM EST 09/12/2022 8:35 AM EST Narrative [facility] - 09/12/2022 11:35 AM EST REFERENCE RANGE: Normal: 4.0-5.6% Pre-diabetes: 5.7-6.4% Provisional diagnosis of diabetes: >6.4% Hgb F>10% and anything which shortens red cell survival, such as hemolytic anemia, or unstable hemoglobin variants such as HbSS, HbSC, or HbCC, will lower the HbA1c value associated with a given level of glycemic control. us Tessy Villalobos APRN CHEMISTRY ORDERABLES Final Result Performing Organization Address City/[facility]/ZIP Co de Phone Number [facility] [address] [place] [address] , [address] [place] [phone] * LIPID SCREEN (09/10/2022 5:56 AM EST) Cholesterol 102 <200 mg/dL 09/10/2022 10:58 AM EST [facility] Comment: < 200 Desirable 200 - 239 Borderline High >= 240 High Triglyceride 44 <150 mg/dL 09/10/2022 10:58 AM EST [facility] Comment: < 150 Normal 150 - 199 Borderline High 200 - 499 High >= 500 Very High HDL 41 >=40 mg/dL 09/10/2022 10:58 AM EST [facility] Comment: > 60 Optimal 40 - 60 Acceptable < 40 Low LDL Calculated 50 <100 mg/dL 09/10/2022 10:58 AM EST [facility] Comment: < 100 Optimal 100 - 129 Near or above optimal 130 - 159 Borderline High 160 - 189 High >= 190 Very High Non-HDL-C Calculated 61 <=129 mg/dL 09/10/2022 10:58 AM EST [facility] Comment: <130 Desirable 130-159 Above Desirable 160-189 Borderline High 190-219 High >= 220 Very High Fasting Specimen? Yes None 022 10:58 AM EST [facility] Blood VENOUS BLOOD / Unknown Venipuncture / Unknown 09/10/2022 5:56 AM EST 09/10/2022 6:55 AM EST us Tessy A Wilfredo LINOTYPE MACHINIST CHEMISTRY ORDERABLES Final Result [facility] [address] [place] [address] [facility] [address] [place] [address] * [facility] EGD-COLONOSCOPY (05/05/2021 10:00 AM EDT) 05/05/2021 10:0 0 AM EDT Impressions [facility] - 05/12/2021 1:39 PM EDT Plan: Follow up pathology results. PPI daily. Smoking cessation. Repeat EGD based on biopsy results. If non-dysplastic Kenny's confirmed, repeat in 1 year. Interval to next Colonoscopy will be based upon histology of polyp(s). This section is an excerpt of the full report. Juana Conner MD GI PROCEDURE ORDERABLES Edited Result - Final Performing Organization Address City/[facility] Co de Phone Number [facility] [address] [place] [address] * ACUTE HEPATITIS PANEL (04/02/2020 5:34 AM EDT) Hep Bs Ag Non-Reacti ve Non-Reacti ve 04/02/2020 10:03 AM EDT [facility] Hep B Core IgM Non-Reacti ve Non-Reacti ve 04/02/2020 10:03 AM EDT [facility] Hep A IgM Non-Reacti ve Non-Reacti ve 04/02/2020 10:03 AM EDT [facility] Hep C Ab Non-Reacti ve Non-Reacti ve 04/02/2020 10:03 AM EDT [facility] Blood VENOUS BLOOD / Unknown Venipuncture / Unknown 04/02/2020 5:34 AM EDT 04/02/2020 5:52 AM EDT us Yeyo Marquez MD CHEMISTRY ORDERABLES Final Result Performing Organization Address [facility] Co de Phone Number [email or web address] [place] [address] from Last 3 Months or Most Recently Relevant to Health Maintenance Insurance [employer] [facility] [place] [address] [facility] [place] [address] [facility] [place] [address] Advance Directives For more information, please contact: [phone] * Full Code (Latest Code Status on File) Date Activated Date Inactivated Comments 09/10/2022 3:53 PM 09/15/2022 10:50 PM No intuba tion * Full Code Date Activated Date Inactivated Comments 09/09/2022 10:18 PM 09/10/2022 3:53 PM * Full Code Date Activated Date Inactivated Comments 02/10/2022 12:52 PM 02/14/2022 7:34 PM * Full Code Date Activated Date Inactivated Comments 05/23/2021 3:54 AM 05/29/2021 11:11 PM * Full Code Date Activated Date Inactivated Comments 03/30/2020 12:23 PM 04/08/2020 8:21 PM Care Teams Invoicing Machine Operator Relationship Specialty Start Date End Date Vargas Hernandez MD PCP - General Family Medicine 12/09/19
--- OUTSIDE RECORDS SUMMARY | 2025-07-28 10:10 | XMS_ITS | Clinical Summary ---
Author Organization [facility] Address [address] [place] [address], [address] [place] [address] Care Team Providers Care Automotive Alignment Specialist Name Role Phone Vargas Hernandez MD Primary Care Provider [phone] Allergies Active Allergy Reactions Criticality Noted Date Comments Amoxicillin-Pot Clavulanate 10/03/19 23 Codeine 01/22/2016 Ketorolac Tromethamine 01/22/2016 Medications cloNIDine (CATAPRES) 0.1 MG tablet Take 0.1 mg by mouth 12/26/2016 Active fluticasone-bryant anterol (BREO ELLIPTA) 100-25 MCG/INH AEPB inhaler INHALE ONE PUFF BY MOUTH ONCE DAILY 06/14/2018 Active Umeclidinium [place] (INCRUSE ELLIPTA) 62.5 MCG/INH AEPB Inhale 1 puff into the lungs Active albuterol (ACCUNEB) 1.25 MG/3ML nebulizer solution Inhale 1.25 mg into the lungs 10/12/2017 Active montelukast (SINGULAIR) 10 MG tablet Take 10 mg by mouth nightly Active amLODIPine (NORVASC) 10 MG tablet Take 10 mg by mouth daily Active Social History Tobacco Use Types Packs/Day Years Used Date Smoking Tobacco: Former Tobacco Cessation:Counseling Given: Not Answered Alcohol Use Standard Drinks/Week Comments Not Currently 0 (1 standard drink = 0.6 oz pur e alcohol) AUDIT-C Answer Date Recorded Q1: How often do you have a drink containing alcohol? Never 10/03/2022 Q2: How many drinks containi ng alcohol do you have on a typical day when you are drinking? Patient does not drink Q3: How often do you have si x or more drinks on one occasion? Never 10/03/2022 Comments No Sex and Gender Information Value Date Recorded Sex Assigned at Not on file Legal Sex Female 9:46 PM EST Gender Identity Not on file Sexual Orientation Not on file Last Filed Vital Signs Vital Sign Reading Time Taken Comments Blood Pressure 140/76 10/03/2022 6:43 PM EST Pulse 82 10/03/2022 6:43 PM EST Temperature 36.7 C (98 F) 10/03/2022 3:11 PM EST Respiratory Rate 18 10/03/2022 6:43 PM EST Oxygen Saturation 99% 10/03/2022 6:43 PM EST Inhaled Oxygen Concentration - - Weight 73.9 kg (163 lb) 10/03/2022 3:11 PM EST Height 149.9 cm (4' 11 ) 10/03/2022 3:11 PM EST Body Mass Index 32.92 10/03/2022 3:11 PM EST Plan of Treatment Health Maintenance Due Date Last Done Comments Depression Screen 1977 HIV screen 1980 Hepatitis C screen 1983 DTaP/Tdap/Td vaccine (1 - Tdap) 1984 Hepatitis B vaccine (1 of 3 - 19+ 3-dose series) 1984 Pap smear 1986 Cervical cancer screen 1995 HPV (without or with Pap) 1995 Breast cancer screen 2005 Lipids 2005 Colonoscopy 2010 Colorectal Cancer Screen 2010 FIT/FOBT: Average risk 2010 Fecal-DNA (Cologuard): Average risk 2010 Sigmoidoscopy/CT colonography 2010 Pneumococcal 50+ years Vacci ne (1 of 1 - PCV) 2015 Shingles vaccine (1 of 2) 2015 Flu vaccine (#1) 04/25/2025 COVID-19 Vaccine (2023-2 5 season) 2025 Hepatitis A vaccine Aged Out No longe r eligible based on patient's age to complete this topic Hib vaccine Aged Out No longer eligi ble based on patient's age to complete this topic Meningococcal (ACWY) vaccine Aged Out No longer eligible based on patient's age to complete this topic Meningococcal B vaccine Aged Out No l onger eligible based on patient's age to complete this topic Polio vaccine Aged Out No longer elig ible based on patient's age to complete this topic [facility] [address] [place] [id number] Care Teams Automotive Alignment Specialist Relationship Specialty [place] [id number] [place] [address] [place] [address] PCP - General Family Medicine 10/03/22
--- OUTSIDE RECORDS SUMMARY | 2025-07-28 10:10 | XMS_ITS | Clinical Summary ---
Author Organization [facility] Address [address] [place] [address] Care Team Providers Care Animal Caregiver Name Role Phone Unavailable Primary Care Provider Unavailabl e Social History Tobacco Use Types Packs/Day Years Used Date Smoking Tobacco: Never Assessed Comments Unknown Sex and Gender Information Value Date Recorded Sex Assigned at Not on file Legal Sex Female 3:41 PM EDT Gender Identity Not on file Sexual Orientation Not on file Plan of Treatment Health Maintenance Due Date Last Done Comments CT Colonography 1965 Colonoscopy 1965 Colorectal Cancer Screening 1965 FIT-DNA (Cologuard) 1965 FIT 1965 FOBT 1965 HIV Screening 1965 Hepatitis C Screening 1965 Sigmoidoscopy 1965 MMR Vaccines (1 of 1 - Stand donnell series) 1966 Hepatitis B Screening 1983 DTaP/Tdap/Td Vaccines (1 - Tdap) 1984 Hepatitis B Vaccines (1 of 3 - 19+ 3-dose series) 1984 Pap Smear 1986 Cervical Cancer Screening 1995 HPV/Cotest 1995 Mammogram 2005 Pneumococcal Vaccine: 50+ Ye ars (1 of 1 - PCV) 2015 Zoster Vaccines (1 of 2) 2015 Depression Risk Screening 09/25/2024 SDOH Screening 09/25/2024 COVID-19 Vaccine ( - 2024-2 6 season) 2025 Influenza Vaccine (#1) 2025 HIB Vaccines Aged Out No longer eligi ble based on patient's age to complete this topic HPV Vaccines Aged Out No longer eligi ble based on patient's age to complete this topic Hepatitis A Vaccines Aged Out No long er eligible based on patient's age to complete this topic IPV Vaccines Aged Out No longer eligi ble based on patient's age to complete this topic Meningococcal B Vaccine Aged Out No l onger eligible based on patient's age to complete this topic Meningococcal Vaccine Aged Out No connie jayla eligible based on patient's age to complete this topic Rotavirus Vaccines Aged Out No longer eligible based on patient's age to complete this topic
--- OUTSIDE RECORDS SUMMARY | 2025-07-28 10:10 | XMS_ITS | Encounter Summary ---
Author Organization [facility] [place] [address] Care Team Providers Care Baggage Handling Supervisor Name Role Phone Vargas Hernandez MD Primary Care Provider [phone] Encounter Details Date Type Department Care Team (Latest Contact Info) Description 06/20/2025 Results Follow-Up [facility] [address] [address] Asim Helm MD [address] [place] [address] ALPHA-1 ANTITRYPSIN MUT ANALYSIS-REF LAB Social History Tobacco Use Types Packs/Day Years [...] medical care, and heating? Somewhat hard 02/09/2022 [facility] [place] of Occupat ional Health - Occupational Stress [...] Chauncey Lorenzana RN documented in this encounter Plan of Treatment Upcoming Encounters Date Type Department Care Team (Late st Contact Info) Description 08/28/2025 11:20 AM EST Office Visit [facility] [address] [facility] [address] [place] [address] Arlen Bacon, BRUSH CLEARING LABORER [address] [place] [address] documented as of this encounter Visit Diagnoses Not on filedocumented in this encounter Care Teams Baggage Handling Supervisor Relationship Specialty Start Date End Date Vargas Hernandez MD PCP - General Family Medicine 12/09/19 documented as of this encounter
--- OUTSIDE RECORDS SUMMARY | 2025-07-28 10:10 | XMS_ITS | Encounter Summary ---
Author Organization [place] [address] Care Team Providers Care Skin Washer Name Role Phone Vargas Hernandez MD Primary Care Provider [phone] Encounter Details Date Type Department Care Team (Late st Contact Info) Description 06/05/2025 Orders Only [facility] [address] [address] Suri Paige MA COPD, group E, by GOLD 2022 classification (HCC) (Primary Dx) Social History Tobacco Use Types Packs/Day Years [...] medical care, and heating? Somewhat hard 02/09/2022 [facility] [place] of Occupat ional Health - Occupational Stress [...] Yes 09/15/2022 4:33 PM Chauncey Lorenzana, [place] documented as of this encounter Mental Status * Because of a physical, mental or emotional condition, does this person have serious difficulty concentrating, remembering or making decisions? Answer Entry Date Author Yes 09/15/2022 4:33 PM Chauncey Lorenzana, [place] documented in this encounter Ordered Prescriptions Prescription Sig Dispense Quantity Refills Last Filled Start Date End Date Oxygen and Equipment MISCELLANEOUIndicatio ns:COPD, group E, by GOLD 2023 classification ([facility]) Use as directed. 1 Each 06/05/2025 documented in this encounter Plan of Treatment Upcoming Encounters Date Type Department Care Team (Late st Contact Info) Description 08/28/2025 11:20 AM EST Office Visit [facility] [address] [place] [address] [address] Arlen Bacon, PLASTIC PARTS DESIGNER [address] [place] [address] documented as of this encounter Visit Diagnoses Diagnosis COPD, group E, by GOLD 202 classification ([facility])- Primary documented in this encounter Care Teams Skin Washer Relationship Specialty Start Date End Date Vargas Hernandez MD PCP - General Family Medicine 12/09/19 documented as of this encounter
== END 2025-07-25 23:59 ==
LOC: LAB.DROPOF 07-28 10:00
PROVIDERS: PCP Family Medicine; Visit Provider Family Medicine
DX: K42.9 Umbilical hernia without obstruction or gangrene (principal); I10 Essential (primary) hypertension; R00.0 Tachycardia, unspecified
CPT/HCPCS: 80053; 80061; 85025